=== PATIENT | female | born 1940 | race Hispanic/Latino ===

== ENCOUNTER 2016-12-03 10:22 | Outpatient (CLI) | payer MEDICARE, BC ==
--- NOTE | 2016-12-03 14:24 | CT ---
CT ABDOMEN WITH IV CONTRAST CT PELVIS WITH IV CONTRAST: Date: 12-03-16 History: Right lower quadrant abdominal pain for a few months. Nausea. History of cholecystectomy an d appendectomy. Comparison: None. FINDINGS: There is mild dependent bibasilar atelectasis. Prominent degenerative changes are seen within the lumbar spine. Vascular calcifications are seen in the abdominal aorta and iliac arteries. Liver demonstrates mild diminished attenuation which may be related to mild fatty infiltration. Live r is otherwise normal in appearance. There is evidence of prior cholecystectomy. There is a subcentimeter too small to characterize hypodense lesion in the midportion left kidney. The spleen, pancreas, bilateral adrenal glands, right kidney, partially distended urinary bladder, u terus and opacified bowel demonstrate a normal CT appearance. There is colonic diverticulosis with multiple diverticula seen involving the sigmoid colon. There ar e no CT findings to suggest diverticulitis. There is no free fluid, fluid collection, or lymphadenopathy seen in the abdomen or pelvis. IMPRESSION: 1. No acute findings in the abdomen or pelvis. 2. Colonic diverticulosis. 3. Post cholecystectomy. 4. Mild fatty infiltration of the liver. POS: [facility]
[2016-12-03] MEDS ORDERED: Iopamidol 370 76% 100 ML VIAL ONE (16:08)
== END 2016-12-03 10:23 | disposition home or self-care (01) ==
LOC: CT 10:22
PROVIDERS: ATTEND Internal Medicine Geriatric Medicine
DX: R10.31 Right lower quadrant pain (principal); E11.9 Type 2 diabetes mellitus without complications; K57.30 Diverticulosis of large intestine without perforation or abscess without bleeding; K76.0 Fatty (change of) liver, not elsewhere classified; Z90.49 Acquired absence of other specified parts of digestive tract
CPT/HCPCS: 36415; 74177; 80053; 80061; 83036; 85025

== ENCOUNTER 2017-07-31 14:47 | Emergency (ER) | payer MEDICARE, BC ==
[2017-07-31] MEDS ORDERED: HYDROcodone/Acetaminophen 5/325 mg Tablet ONE (15:48)
--- NOTE | 2017-07-31 15:54 | RAD ---
AP PELVIS: Date: 07/31/17 HISTORY: Fall, left hip pain. FINDINGS/IMPRESSION: There are degenerative changes in the hip joints and the lower lumbar spine. There is suggestion of a fracture involving the inferior left pubic ramus. POS: [facility]
--- NOTE | 2017-07-31 15:56 | RAD ---
LEFT HIP 2 VIEWS: Date: 07/31/17 HISTORY: 77-year-old female with history of left hip pain after a fall. FINDINGS: There is a linear area of slight sclerosis and slight adjacent lucency in the left inferior ischiopub ic ramus. This is at the location of the physis and is conceivable that could be what this is. I moira ot exclude, however, the possibility of a nondisplaced fracture. The left hip itself shows some degen erative enthesophytic changes, but no acute hip fracture. IMPRESSION: No acute hip fracture. Area of linear lucency and sclerosis involving the left inferior ischiopubic r amus, nondisplaced fracture versus residual physis. POS: [facility]
--- NOTE | 2017-07-31 16:22 | CT ---
CT PELVIS NONCONTRAST: Date: 07/31/17 HISTORY: Fall. Pelvic injury. Abnormal radiograph. FINDINGS: A comminuted, minimally displaced fracture involves the left inferior pubic ramus in region of abnorm ality on pelvic radiograph. Other pubic rami and the sacrum are intact. Prominent degenerative change s of the sacroiliac joints. Moderate degenerative changes of the hips. Calcification throughout the a rterial structures. Diverticular arise from the partially visualized colon. IMPRESSION: 1. Mildly displaced left inferior pubic ramus fracture. 2. Osteoarthritis. 3. Atherosclerosis. POS: [facility]
== END 2017-07-31 17:30 | disposition home or self-care (01) ==
LOC: ERS 14:47
DX: S32.592A Other specified fracture of left pubis, initial encounter for closed fracture (principal); E11.9 Type 2 diabetes mellitus without complications; I10 Essential (primary) hypertension; W18.30XA Fall on same level, unspecified, initial encounter
CPT/HCPCS: 72170; 72192

== ENCOUNTER 2018-01-25 14:28 | Observation (INO) | payer MEDICARE, BC ==
--- NOTE | 2018-01-25 15:53 | RAD ---
TWO VIEWS CHEST: DATE: 01/25/2018. PROVIDED CLINICAL HISTORY: Back pain status post fall. FINDINGS: Cardiac and mediastinal silhouette is within normal limits. Vascular calcification involves the aort ic arch. No focal consolidation, pleural fluid, or pneumothorax apparent. The bony thorax appears g rossly intact. IMPRESSION: No evidence for an acute cardiopulmonary process. POS: [facility]
--- NOTE | 2018-01-25 16:07 | CT ---
CT BRAIN: 01/25/2018 PROVIDED CLINICAL HISTORY: Trauma. Fall. Facial injury. FINDINGS: There is no evidence for intracranial hemorrhage or mass effect. The ventricular system appears norm al in size and morphology. Encephalomalacia involving a portion of the left frontal lobe, compatible with changes of remote ischemia. The extracranial soft tissues and osseous structures demonstrate a n unremarkable CT appearance. IMPRESSION: No evidence for intracranial hemorrhage or mass effect. POS: [facility]
--- NOTE | 2018-01-25 16:09 | CT ---
CT CERVICAL SPINE: 01/25/2018 PROVIDED CLINICAL HISTORY: Fall. FINDINGS: There is no evidence for fracture or traumatic subluxation. No prevertebral soft tissue swelling krzysztof arent. The visualized lung apices appear clear. Conspicuous vascular calcification involving the ri ght distal common/proximal internal carotid artery. IMPRESSION: 1. No evidence for fracture or traumatic subluxation. 2. Possible high-grade right internal carotid artery stenosis. Non-emergent carotid ultrasound analy mmended. CODE T POS: [facility]
--- NOTE | 2018-01-25 16:10 | CT ---
CT FACIAL BONES: 01/25/2018 PROVIDED CLINICAL HISTORY: Facial pain, status post injury. FINDINGS: There is no evidence for fracture. The globes and orbital contents appear normal. The paranasal sin uses appear clear. IMPRESSION: No evidence for fracture. POS: [facility]
[2018-01-25 17:14] LABS: #Basophils 0.1 thou/uL (0.0-0.2); #Eosinphils 0.2 thou/uL (0.0-0.7); #Lymphocytes 2.4 thou/uL (1.20-3.40); #Monocytes 0.8 thou/uL (0.11-0.59); #Neutrophils 12.1 thou/uL (1.40-6.50); %Basophils 0.6 % (0.0-1.0); %Eosinophils 1.3 % (0.0-10.0); %Lymphocytes 15.4 % (21.0-51.0); %Monocytes 5.4 % (0.0-10.0); %Neutrophils 77.3 % (42.0-75.0); Mean Corpuscular HGB CONC 32.6 g/dL (32.0-36.0); Mean Corpuscular Hemoglobin 28.1 pg (27.0-31.0); Mean Platelet Volume 9.8 fL (7.4-10.4); Platelet Count 283 thou/uL (130-400); RBC Distribution Width 12.3 % (11.5-14.5); Red Blood Cell (RBC) Count 5.33 mill/uL (4.20-5.40); White Blood Cell (WBC) Count 15.6 thou/uL (4.8-10.8)
[2018-01-25 17:17] LABS: Bilirubin Negative (Negative); Blood, Urine Negative (Negative); Clarity CLEAR (Clear); Glucose, Urine (Dipstick) Negative (Negative); Leukocyte Negative (Negative); Nitrite Negative (Negative); Protein, Urine (Dipstick) Negative (Neg-Trace); Specific Gravity, Urine 1.007 (1.002-1.036); Urobilinogen 0.2 mg/dL (0.2-1.0)
[2018-01-25 17:38] LABS: ALT (SGPT) 37 U/L (8-55); AST (SGOT) 36 U/L (5-34); Albumin 4.7 g/dL (3.4-4.8); Alkaline Phosphatase 104 U/L (40-150); Anion Gap 20 mmol/L (10-20); BUN (Urea Nitrogen) 12 mg/dL (9.8-20.1); Bilirubin, Total 0.7 mg/dL (0.2-1.2); Calc. Creatinine Clearance 0 mL/min (70-130); Calcium 10.6 mg/dL (7.8-10.44); Carbon Dioxide 19 mmol/L (23-31); Chloride 100 mmol/L (98-107); Estimated GFR-MDRD 83; Globulin 3.5 g/dL (2.4-3.5); Glucose 152 mg/dL (83-110); Potassium 4.3 mmol/L (3.5-5.1); Protein, Total 8.2 g/dL (6.0-8.3); Sodium 135 mmol/L (136-145)
[2018-01-25 18:00] LABS: CKMB 1.9 ng/mL (0-6.6)
[2018-01-25] MEDS ORDERED: Ondansetron PF 4 MG/2 ML Vial IVP PRN (19:55)
[2018-01-25] MEDS ORDERED: HYDROcodone/Acetaminophen 5/325 mg Tablet PO PRN ×2 (19:55)
[2018-01-25] MEDS ORDERED: Acetaminophen 325 MG TAB PO PRN (19:55)
[2018-01-25] MEDS ORDERED: Ondansetron ODT 4 MG TAB SL PRN (19:55)
[2018-01-25 20:38] VITALS: BMI 29.0
[2018-01-25 20:49] LABS: Troponin I 0.128 ng/mL (< 0.028)
[2018-01-25] MEDS ORDERED: Prevnar 13-Val Conj/PF 0.5 ML SYRINGE IM ONE (22:15)
--- NOTE | 2018-01-25 23:07 | ULT ---
BILATERAL CAROTID DUPLEX ULTRASOUND WITH SPECTRAL ANALYSIS AND COLORFLOW EVALUATION: 01/25/2018 HISTORY: Dizziness and falls. TECHNIQUE: Gutierrez-scale, color-flow, Doppler evaluation, and spectral analysis of the bilateral carotid arteries i s performed with 2D imaging. FINDINGS: There is atherosclerotic plaque seen within the internal carotid arteries bilaterally, greater on the right. There is less than 50% maximal stenosis in the bilateral internal carotid arteries according to the p eak systolic velocities and the ICA/CCA ratios. The peak systolic velocity in the right ICA is 77.8 cm per second, with an ICA/CCA ratio of 0.84. The peak systolic velocity in the left ICA is 112.5 cm per second, with an ICA/CCA ratio of 0.89. There is mildly elevated peak systolic velocity in the left external carotid artery, suggesting signi ficant stenosis. Antegrade flow is demonstrated in the vertebral arteries bilaterally. IMPRESSION: No hemodynamically significant stenosis in the bilateral internal carotid arteries. There is shadowi ng atherosclerotic plaque in the region of the proximal right internal carotid artery, which limits e valuation of the lumen. More significant stenosis in this region cannot be entirely excluded. POS: [facility]
[2018-01-25] MEDS ORDERED: hydrALAZINE 20 MG/ML VIAL SLOW IVP PRN (23:44)
[2018-01-26] MEDS ORDERED: Sodium Chloride 0.65% Nasal 44 ML BOT EA NARE PRN (03:36)
[2018-01-26] MEDS ORDERED: Ondansetron ODT 4 MG TAB PO PRN (03:39)
[2018-01-26] MEDS ORDERED: Ondansetron PF 4 MG/2 ML Vial IVP PRN (03:39)
[2018-01-26] MEDS ORDERED: Nitroglycerin 0.4 MG TAB (25 Tab Bottle) PO PRN (03:39)
[2018-01-26] MEDS ORDERED: Acetaminophen 325 MG TAB PO PRN (03:39)
--- NOTE | 2018-01-26 04:29 | HP ---
The patient was seen and examined on 01/25/2018. PRIMARY CARE PHYSICIAN: Do Gould MD CHIEF COMPLAINT: Fall. HISTORY OF PRESENT ILLNESS: The patient is a 78-year-old female with congestive heart failure, hypertension, diabetes mellitus type 2 and hyperlipidemia, who presented to the hospital after a fall. The fall happened in a parking lot outside a restaurant. The patient stated that she tripped on the concrete, which caused her to fall. She denies any loss of consciousness. She hit on the floor facing her face. She had some bleeding through her nose that has resolved. She denies any seizure-like activity, incontinence or tongue biting. No chest pain, shortness of breath or palpitations reported. In the emergency room, her initial vital signs show a temperature 98.6, respirations 20, pulse rate of 95 with a blood pressure 195/72 with O2 saturation 99% on room air. A CT scan of the brain was negative for acute findings. CT neck showed questionable high-grade right-sided internal carotid artery stenosis. EKG showed sinus rhythm with left ventricular hypertrophy and left axis deviation. There were some nonspecific ST-T wave changes as well. Her troponins were in the indeterminate range at 0.128. PAST MEDICAL HISTORY: 1. History of congestive heart failure in 2013. She was discharged home with a LifeVest. Echocardiogram at that time showed 20% to 25%. Cardiac catheterization was negative. This was attributed to Takotsubo cardiomyopathy. She stated that she saw Dr. Aranda and her ejection fraction had improved. 2. Diabetes mellitus type 2. 3. Hypertension. 4. Hyperlipidemia. 5. Anxiety disorder. PAST SURGICAL HISTORY: 1. Left carotid endarterectomy. 2. Appendectomy. 3. Cholecystectomy. ALLERGIES: THE PATIENT IS ALLERGIC TO SULFA. CURRENT HOME MEDICATIONS: 1. Tylenol as needed. 2. Amlodipine 5 mg daily. 3. Aspirin 81 mg daily. 4. Lipitor 20 mg daily. 5. Vitamin D 1000 units daily. 6. Vitamin B12 1000 mcg every month. 7. Glipizide extended release 2.5 mg daily. 8. Lisinopril 5 mg daily. 9. Metformin 850 mg twice a day. SOCIAL HISTORY: The patient currently lives at home with her family. Denies any history of smoking, alcohol or drug use. She currently makes her own decision with the help of her family. She is full code. FAMILY HISTORY: Positive for diabetes mellitus type 2. REVIEW OF SYSTEMS: All other review of systems was reviewed and were found negative. PHYSICAL EXAMINATION: VITAL SIGNS: As discussed above. GENERAL: A 78-year-old female in no apparent distress. HEENT: Head, atraumatic, normocephalic. Sclerae anicteric. Moist mucous membranes. No oral lesion. NECK: Supple. No JVD. No carotid bruit. LUNGS: Clear to auscultation bilaterally. HEART: S1 and S2 present. Regular rate and rhythm. No murmurs, rubs or gallops appreciated. ABDOMEN: Soft, nontender. Bowel sounds present. EXTREMITIES: No edema or calf tenderness. NEUROLOGY: Grossly nonfocal. Moves all four extremities. PSYCHIATRY: Alert, awake, and oriented x3. SKIN: Warm and dry. LYMPH NODES: No palpable lymph nodes in the neck. PERIPHERAL VASCULAR: Radial pulses palpable bilaterally. MUSCULOSKELETAL: No joint swelling or tenderness. LABORATORY DATA: Lab findings as discussed above. WBC 15.6 with 77% neutrophils. Urinalysis was negative. DIAGNOSTIC DATA: Chest x-ray was negative for infiltrate or edema. CT of the facial bones was negative. Cervical spine CT showed possible high-grade right internal carotid artery stenosis. CT scan of the brain was negative. EKG by my review as discussed above. IMPRESSION: 1. Mechanical fall. 2. Elevated troponins probably secondary to demand ischemia from high blood pressure. 3. Dehydration. 4. Chronic hypercalcemia. 5. Vitamin D deficiency. 6. Diabetes mellitus type 2. 7. Mild hyponatremia. 8. Leukocytosis without any obvious infectious etiology. 9. History of congestive heart failure in the past. 10. Dyslipidemia. 11. Anxiety disorder. PLAN: The patient will be monitored on the telemetry unit overnight. Echocardiogram will be obtained. Carotid Doppler has been ordered and pending at this time due to suspected left ICA stenosis on the cervical spine CT. Fall precautions. Walking program. We will resume selected home medications except for metformin due to contrast exposure. Orthostatic vitals will be done in the morning. The patient denies any loss of consciousness. Plan of care was discussed with the patient in detail. She stated understanding. Job ID: [id number]
[2018-01-26 04:39] LABS: #Basophils 0.1 thou/uL (0.0-0.2); #Eosinphils 0.2 thou/uL (0.0-0.7); #Lymphocytes 2.9 thou/uL (1.20-3.40); #Monocytes 0.8 thou/uL (0.11-0.59); #Neutrophils 6.6 thou/uL (1.40-6.50); %Basophils 0.7 % (0.0-1.0); %Eosinophils 2.2 % (0.0-10.0); %Lymphocytes 26.9 % (21.0-51.0); %Monocytes 7.8 % (0.0-10.0); %Neutrophils 62.4 % (42.0-75.0); Hemoglobin 13.3 g/dL (12.0-16.0); Mean Corpuscular HGB CONC 33.9 g/dL (32.0-36.0); Mean Corpuscular Hemoglobin 28.9 pg (27.0-31.0); Mean Corpuscular Volume 85.3 fL (78.0-98.0); Mean Platelet Volume 9.7 fL (7.4-10.4); Platelet Count 268 thou/uL (130-400); RBC Distribution Width 12.4 % (11.5-14.5); Red Blood Cell (RBC) Count 4.59 mill/uL (4.20-5.40); White Blood Cell (WBC) Count 10.6 thou/uL (4.8-10.8)
[2018-01-26 05:00] LABS: Anion Gap 12 mmol/L (10-20); BUN (Urea Nitrogen) 12 mg/dL (9.8-20.1); Calc. Creatinine Clearance 80 mL/min (70-130); Calcium 10.2 mg/dL (7.8-10.44); Carbon Dioxide 27 mmol/L (23-31); Chloride 103 mmol/L (98-107); Estimated GFR-MDRD 88; Glucose 132 mg/dL (83-110); Magnesium 1.4 mg/dL (1.6-2.6); Sodium 138 mmol/L (136-145)
[2018-01-26 05:04] LABS: Troponin I 0.191 ng/mL (< 0.028)
[2018-01-26] MEDS ORDERED: Magnesium Sulfate 4 GM in Sodium Chloride 0.9% 250 ML 250 ML IVPB SCH (06:30)
[2018-01-26] MEDS ORDERED: Prevnar 13-Val Conj/PF 0.5 ML SYRINGE IM ONE (09:00)
[2018-01-26] MEDS: Amlodipine 5 MG TAB PO SCH (09:29)
[2018-01-26] MEDS: Lisinopril 5 MG TAB PO SCH (09:29)
[2018-01-26] MEDS: Aspirin 81 mg Enteric Coated Tablet PO SCH (09:29)
--- NOTE | 2018-01-26 15:08 | PDOC.PN ---
- Subjective Encounter Start Date: 01/26/18 Encounter Start Time: 15:07 No events over night, no chest pain, shortness of breath. No headache or dizziness. Ortho vitals negative. Carotids show <50% bilateral stenosis - Objective Resuscitation Status - Order Detail: 01/26/18 03:39 Resuscitation Status Routine Resuscitation Status: FULL: Full Resuscitation MAR Reviewed: Yes Vital Signs & Weight: Vital Signs (12 hours) Temp Pulse Resp BP BP BP BP 01/26/18 11:30 97.3 F L 56 L 20 163/68 H 01/26/18 09:29 46 L 01/26/18 07:56 97.4 F L 46 L 16 157/70 H 179/75 H 165/70 H 01/26/18 03:59 98.1 F 55 L 16 143/62 H Pulse Ox 01/26/18 11:30 95 01/26/18 09:29 01/26/18 07:56 94 L 01/26/18 03:59 96 Weight Weight 159 lb 1 oz I&O: 01/25/18 01/26/18 01/27/18 06:59 06:59 06:59 Intake Total 190 Output Total 450 275 Balance -260 -275 Result Diagrams: 01/26/18 04:00 01/26/18 04:00 Additional Labs: Accuchecks 01/26/18 01/25/18 10:14 20:29 POC Glucose 229 H 164 H Radiology Reviewed by me: Yes EKG Reviewed by me: Yes Phys Exam - Physical Examination Constitutional: NAD HEENT: PERRLA, moist MMs, sclera anicteric, oral pharynx no lesions Neck: no nodes, no JVD, supple Respiratory: no wheezing, no rales, no rhonchi, clear to auscultation bilateral Cardiovascular: RRR, no significant murmur, no rub Gastrointestinal: soft, non-tender, no distention, positive bowel sounds Musculoskeletal: no edema, pulses present Neurological: non-focal, normal sensation, moves all 4 limbs Lymphatic: no nodes Psychiatric: normal affect, A&O x 3 Skin: no rash, normal turgor, cap refill <2 seconds Dx/Plan - Plan cont current plan of care * Continue medical management * Await echo * Carotid doppler reviewed and discussed with patient * Trend Troponin, currently asymptomatic * Ortho vitals negative
[2018-01-26] MEDS ORDERED: Atorvastatin Calcium 20 MG TAB PO SCH (21:00)
[2018-01-27 04:51] LABS: Troponin I 0.042 ng/mL (< 0.028)
[2018-01-27 08:06] VITALS: BP 141/64; TEMP 97.9
[2018-01-27] MEDS: Amlodipine 5 MG TAB PO SCH (08:49)
[2018-01-27] MEDS: Aspirin 81 mg Enteric Coated Tablet PO SCH (08:49)
[2018-01-27] MEDS: Lisinopril 5 MG TAB PO SCH (08:49)
[2018-01-27] MEDS ORDERED: Lisinopril 5 MG TAB PO SCH (09:59)
[2018-01-27] MEDS ORDERED: metFORMIN 850 MG TAB PO SCH (11:15)
[2018-01-27] MEDS ORDERED: glipiZIDE 5 MG TAB PO SCH (11:15)
[2018-01-28] MEDS ORDERED: Lisinopril 10 MG TAB PO SCH (09:00)
--- NOTE | 2018-01-29 13:17 | EKG ---
Test Reason : Blood Pressure : / mmHG Vent. Rate : 084 BPM Atrial Rate : 084 BPM P-R Int : 152 ms QRS Dur : 088 ms QT Int : 424 ms P-R-T Axes : 039 -07 095 degrees QTc Int : 501 ms Normal sinus rhythm Left ventricular hypertrophy with repolarization abnormality Nonspecific ST abnormality Prolonged QT Abnormal ECG Confirmed by RAVI BATES DO ([id number]), assignment editor ANTHONY BOURGEOIS ([id number]) on 01/29/2018 1:17:28 PM Referred By: Confirmed By:RAVI BATES DO
== END 2018-01-27 11:33 | disposition home or self-care (01) ==
LOC: ERS 14:28 → T4-B 18:20 → 2SW 22:49
PROVIDERS: ADMIT Internal Medicine; ATTEND Internal Medicine
DX: S00.83XA Contusion of other part of head, initial encounter (principal); I11.0 Hypertensive heart disease with heart failure; I50.9 Heart failure, unspecified; E11.9 Type 2 diabetes mellitus without complications; E78.5 Hyperlipidemia, unspecified; E86.0 Dehydration; E83.52 Hypercalcemia; D72.829 Elevated white blood cell count, unspecified; E87.1 Hypo-osmolality and hyponatremia; F41.9 Anxiety disorder, unspecified; Z90.49 Acquired absence of other specified parts of digestive tract; Z88.2 Allergy status to sulfonamides; Z79.82 Long term (current) use of aspirin; Z79.84 Long term (current) use of oral hypoglycemic drugs; Z98.890 Other specified postprocedural states; W19.XXXA Unspecified fall, initial encounter
CPT/HCPCS: 70450; 70486; 71046; 72125; 80048; 80053; 81003; 82553; 82962 ×3; 83735; 84484 ×4; 85025 ×2; 93005; 93306; 93880; 96365; 96366; 97139 ×2; 99285; G0378 ×2; 36415; 36416; J3475; J7050

== ENCOUNTER 2018-02-26 13:00 | Observation (INO) | payer MEDICARE, BC ==
--- NOTE | 2018-02-26 13:50 | RAD ---
PORTABLE CHEST: History: Chest pain. Comparison: 05-10-14 FINDINGS: Lung partida appear clear. No infiltrate or vascular congestion. Heart size within normal range. Mild aortic calcification. IMPRESSION: No acute process. POS: [facility]
[2018-02-26 13:59] LABS: #Basophils 0.1 thou/uL (0.0-0.2); #Eosinphils 0.2 thou/uL (0.0-0.7); #Lymphocytes 2.6 thou/uL (1.20-3.40); #Monocytes 0.7 thou/uL (0.11-0.59); #Neutrophils 8.9 thou/uL (1.40-6.50); %Basophils 0.9 % (0.0-1.0); %Eosinophils 1.9 % (0.0-10.0); %Lymphocytes 20.8 % (21.0-51.0); %Monocytes 5.5 % (0.0-10.0); Hemoglobin 13.8 g/dL (12.0-16.0); Mean Corpuscular HGB CONC 33.7 g/dL (32.0-36.0); Mean Corpuscular Hemoglobin 28.7 pg (27.0-31.0); Mean Corpuscular Volume 85.3 fL (78.0-98.0); Mean Platelet Volume 9.8 fL (7.4-10.4); Platelet Count 285 thou/uL (130-400); RBC Distribution Width 12.3 % (11.5-14.5); White Blood Cell (WBC) Count 12.5 thou/uL (4.8-10.8)
[2018-02-26 14:31] LABS: ALT (SGPT) 28 U/L (8-55); AST (SGOT) 23 U/L (5-34); Albumin 4.4 g/dL (3.4-4.8); Alkaline Phosphatase 102 U/L (40-150); Anion Gap 17 mmol/L (10-20); BUN (Urea Nitrogen) 11 mg/dL (9.8-20.1); Bilirubin, Total 0.6 mg/dL (0.2-1.2); CK (CPK) 30 U/L (29-168); Calc. Creatinine Clearance 0 mL/min (70-130); Calcium 10.4 mg/dL (7.8-10.44); Carbon Dioxide 20 mmol/L (23-31); Chloride 99 mmol/L (98-107); Estimated GFR-MDRD 83; Glucose 161 mg/dL (83-110); Potassium 3.8 mmol/L (3.5-5.1); Protein, Total 7.4 g/dL (6.0-8.3); Sodium 132 mmol/L (136-145)
[2018-02-26] MEDS ORDERED: Nitroglycerin 2% Ointment 1 INCH/1 GM Packet ONE (14:57)
[2018-02-26 15:00] LABS: Bilirubin Negative (Negative); Blood, Urine Negative (Negative); Clarity CLEAR (Clear); Glucose, Urine (Dipstick) Negative (Negative); Leukocyte Small (Negative); Nitrite Negative (Negative); Protein, Urine (Dipstick) Negative (Neg-Trace); Specific Gravity, Urine 1.004 (1.002-1.036); Urobilinogen 0.2 mg/dL (0.2-1.0); pH, Urine 5.5 (5.0-9.0)
[2018-02-26 15:03] LABS: Bacteria/HPF None Seen HPF (None Seen); Hyaline Casts/LPF 0-3 HYALINE CAST LPF (0-3 Hyaline); RBC/HPF 0-3 HPF (0-3); Squamous Epithelial 0-3 HPF (0-3)
[2018-02-26] MEDS ORDERED: HYDROcodone/Acetaminophen 5/325 mg Tablet PO PRN (16:08)
[2018-02-26] MEDS ORDERED: Acetaminophen 325 MG TAB PO PRN (16:08)
[2018-02-26] MEDS ORDERED: Nitroglycerin 0.4 MG TAB (25 Tab Bottle) SL PRN (16:18)
[2018-02-26] MEDS ORDERED: hydrALAZINE 20 MG/ML VIAL SLOW IVP PRN (16:18)
[2018-02-26] MEDS ORDERED: HumaLOG 300 UNITS/3 ML VIAL SC PRN (16:19)
[2018-02-26] MEDS ORDERED: Dextrose 50% Abboject 50 ML SYRINGE SLOW IVP PRN (16:19)
[2018-02-26] MEDS ORDERED: Dextrose 5% in Water 1,000 ML IV PRN (16:19)
[2018-02-26 18:36] LABS: Troponin I Less than 0.010 ng/mL (< 0.028)
[2018-02-26 19:21] VITALS: BMI 29.4
[2018-02-26] MEDS ORDERED: Acetaminophen 500 MG TAB PO PRN (19:39)
[2018-02-26 20:45] LABS: Troponin I Less than 0.010 ng/mL (< 0.028)
[2018-02-26] MEDS: Famotidine 20 MG TAB PO SCH (21:02)
--- NOTE | 2018-02-26 23:11 | HP ---
PRIMARY CARE PHYSICIAN: Do Gould MD CHIEF COMPLAINT: Chest pain. HISTORY OF PRESENT ILLNESS: This is a very pleasant 78-year-old female, who presented to the emergency room for chest pain after she was doing some light cycling for exercise. When she noted that she has had some mild substernal chest pain type tightness in her chest, she stopped. They were able to take her blood pressure while she was there. It was elevated. Dr. Gould's office referred her to the emergency room for further management. The patient denied any nausea, shortness of breath, or diaphoresis with chest pain. Does have a history of hypertension, diabetes, some coronary artery disease in the past. Daughter reports the patient was diagnosed with broken heart syndrome back in 2013. At that time, Dr. Aranda did a cardiac cath in December of 2013 for cardiomyopathy of unknown origin. Postprocedure diagnosis significant coronary artery disease. She did at that point have an EF of 20% to 25%. She was discharged at that point with LifeVest, which she reports that she stopped wearing sometime later within the next year or so. She was admitted in January 2018 for a fall, had an echocardiogram done, which showed an EF of 55% to 60%, mild concentric left ventricular hypertrophy, the left atrium is moderately dilated, [id number] mitral regurgitation, mildly thickened trileaflet aortic valve with normal excursion, [id number]-af-[id number] aortic stenosis, moderate aortic regurgitation, mild tricuspid regurgitation, and E/A flow reversal noted suggestive of diastolic dysfunction. The patient was discharged to follow up with primary care. Initial troponin in the emergency room was undetectable with a BNP of 78%. Based on history and presentation, the patient was admitted to the observation unit for further management. PAST MEDICAL HISTORY: 1. History of congestive heart failure in 2013 attributed to takotsubo cardiomyopathy, improvement of the EF last month 55% to 60%. 2. Diabetes mellitus type 2. 3. Hypertension. 4. Hyperlipidemia. 5. Anxiety disorder. PAST SURGICAL HISTORY: Left carotid endarterectomy, appendectomy, and cholecystectomy. ALLERGIES: THE PATIENT IS ALLERGIC TO SULFA. CURRENT HOME MEDICATIONS: 1. Tylenol as needed. 2. Amlodipine 5 mg daily. 3. Aspirin 81 mg daily. 4. Lipitor 20 mg daily. 5. Vitamin D 1000 units daily. 6. Vitamin B12 of 1000 mcg every month. 7. Glipizide extended release 2.5 mg daily. 8. Lisinopril 5 mg daily. 9. Metformin 850 mg twice a day. SOCIAL HISTORY: The patient currently lives at home with her family. Denies any smoking history. Denies any alcohol or drug use. She is full code. FAMILY HISTORY: Positive for diabetes type 2. REVIEW OF SYSTEMS: All other systems reviewed and negative unless found in the HPI. PHYSICAL EXAMINATION: VITAL SIGNS: Blood pressure 153/58, pulse is 49, respirations 14. Pain is zero. Pulse ox is 97% on room air. CONSTITUTION: The patient is in no distress. The patient appears pain free. She is alert and oriented to person, place, and time. HEENT: Head is atraumatic and normocephalic. Eyes; eyelids are normal to inspection. Pupils are equally round and reactive to light. Extraocular muscles are intact. ENT; mouth exam is normal. Mucous membranes are moist. NECK: Normal range of motion. Trachea is midline. RESPIRATORY/CHEST: Breath sounds are clear. No findings of any respiratory distress. CARDIOVASCULAR: Heart rate is bradycardic. Heart sounds with systolic murmur present, grade 3/6, regular rhythm. ABDOMEN: Nontender. Bowel sounds are heard. BACK: Normal inspection. Normal range of motion. EXTREMITIES: Upper extremities, normal inspection, normal range of motion. Sensation intact. Radial pulses are equal bilaterally. Lower extremity, normal inspection, normal range of motion. Motor strength is normal. Sensation intact. Pedal pulses are equal bilaterally. NEUROLOGIC: The patient is oriented to person, place, and time. No focal motor or sensory deficits are noted. SKIN: Warm, dry, normal in color. DIAGNOSTIC DATA: EKG shows sinus bradycardia, beats per minute 54. No ectopics. ST segments are normal. T-waves are normal. LABORATORY DATA: Pertinent labs: Sodium 132, potassium is 3.8, chloride is 99, carbon dioxide is 20, gap is 17, BUN is 11, creatinine is 0.68, GFR is 83, glucose 161, calcium 10.4. Liver enzymes are unremarkable. First troponin is undetectable. BNP is 78. White blood cell count is 12.5, hemoglobin 13.8, hematocrit 41.0, and platelet count is 285. Urine is negative other than small amount of leukocyte esterase and 4-6 white blood cell count. Culture has been ordered. ASSESSMENT AND PLAN: 1. Chest pain. We will order serial troponins and ask Cardiology to consult. 2. Bradycardia. The patient is not on any beta blockers. We will continue to trend. 3. Diabetes mellitus. We will continue home medications. We will order sliding scale as needed. We will check blood sugars before meals and at bedtime. 4. Hyperlipidemia. We will continue home medications. 5. Deep venous thrombosis and gastrointestinal prophylaxis will be ordered. 6. Clinical course will be dependent on clinical findings. Job ID: [id number]
[2018-02-27 05:11] LABS: #Basophils 0.1 thou/uL (0.0-0.2); #Eosinphils 0.2 thou/uL (0.0-0.7); #Lymphocytes 2.8 thou/uL (1.20-3.40); #Monocytes 0.6 thou/uL (0.11-0.59); #Neutrophils 4.9 thou/uL (1.40-6.50); %Basophils 0.9 % (0.0-1.0); %Eosinophils 2.8 % (0.0-10.0); %Lymphocytes 32.2 % (21.0-51.0); %Neutrophils 57.1 % (42.0-75.0); Hemoglobin 12.9 g/dL (12.0-16.0); Mean Corpuscular HGB CONC 33.5 g/dL (32.0-36.0); Mean Corpuscular Hemoglobin 28.5 pg (27.0-31.0); Mean Corpuscular Volume 84.9 fL (78.0-98.0); Mean Platelet Volume 9.3 fL (7.4-10.4); Platelet Count 241 thou/uL (130-400); RBC Distribution Width 12.4 % (11.5-14.5); Red Blood Cell (RBC) Count 4.52 mill/uL (4.20-5.40); White Blood Cell (WBC) Count 8.6 thou/uL (4.8-10.8)
[2018-02-27 05:40] LABS: ALT (SGPT) 27 U/L (8-55); AST (SGOT) 23 U/L (5-34); Alkaline Phosphatase 86 U/L (40-150); Anion Gap 16 mmol/L (10-20); BUN (Urea Nitrogen) 12 mg/dL (9.8-20.1); Bilirubin, Total 0.7 mg/dL (0.2-1.2); Calc. Creatinine Clearance 80 mL/min (70-130); Carbon Dioxide 24 mmol/L (23-31); Chloride 103 mmol/L (98-107); Estimated GFR-MDRD 86; Globulin 2.6 g/dL (2.4-3.5); Glucose 140 mg/dL (83-110); Potassium 3.9 mmol/L (3.5-5.1); Protein, Total 6.6 g/dL (6.0-8.3); Sodium 139 mmol/L (136-145)
[2018-02-27] MEDS: Amlodipine 5 MG TAB PO SCH (08:56)
[2018-02-27] MEDS: Atorvastatin Calcium 20 MG TAB PO SCH (08:56)
[2018-02-27] MEDS: Aspirin 81 mg Enteric Coated Tablet PO SCH (08:56)
[2018-02-27] MEDS: Famotidine 20 MG TAB PO SCH ×2 (08:56→20:46)
[2018-02-27] MEDS: Enoxaparin Sodium 40 MG/0.4 ML SYRINGE SC SCH (08:57)
[2018-02-27] MEDS: Lisinopril 5 MG TAB PO SCH (08:57)
--- NOTE | 2018-02-27 14:01 | CON ---
DATE OF CONSULTATION: REASON FOR CONSULTATION: Chest pain. HISTORY OF PRESENT ILLNESS: Ms. Anguiano is a very pleasant 78-year-old woman, who was seen and evaluated in the past. She underwent coronary angiography in 2016, was found to have mild coronary artery disease with a lesion present to the right coronary artery estimated at 20%. She underwent a noninvasive stress study last year via cardiac , which was negative for ischemia with a normal LVEF. She re-presented with chest pain. The pain has been intermittent. She states it does not last for more than 1 minute. It has occurred at rest. Her symptoms appears vague. No other ameliorating or exacerbating symptoms present. Her EKG did not show significant EKG changes. Her troponin has been negative. PAST MEDICAL HISTORY: Previous cardiomyopathy, now normal LVEF; diabetes; hypertension; and hyperlipidemia. MEDICATIONS: 1. Lipitor. 2. Vitamin D. 3. Vitamin B12. 4. Amlodipine. 5. Tylenol. 6. Metformin. 7. Lisinopril. PHYSICAL EXAMINATION: GENERAL: Patient is a pleasant, who is in no acute distress. The patient appears their stated age. VITAL SIGNS: Blood pressure 135/79, pulse 50, temperature 98.4. NEUROLOGIC: The patient is alert and oriented x3 with no focal neurologic deficits. HEENT: Sclerae without icterus. Mouth has moist mucous membranes with normal pallor. NECK: No JVD. Carotid upstroke brisk. No bruits bilaterally. LUNGS: Clear to auscultation with unlabored respirations. BACK: No scoliosis or kyphosis. CARDIAC: Regular rate and rhythm with normal S1 and S2. No S3 or S4 noted. No significant rubs, murmurs, thrills, or gallops noted throughout the precordium. PMI is not displaced. There is no parasternal heave. ABDOMEN: Soft, nontender, nondistended. No peritoneal signs present. No hepatosplenomegaly. No abnormal striae. EXTREMITIES: 2+ femoral and 2+ dorsalis pedis pulses. No cyanosis, clubbing, or edema. SKIN: No gross abnormalities. LABORATORY DATA: Pertinent labs, as above. IMPRESSION: 1. Atypical chest pain. 2. Mild coronary artery disease. RECOMMENDATIONS: Ms. Anguiano' troponin and EKG are not probably suggestive of angina. She had an angio 2 years ago with no significant coronary artery disease. She also had a normal stress study. We would recommend echo Doppler to assess LV function. She has no previous history of aortic stenosis. If her LVEF is normal, from my standpoint discharged home with close outpatient followup. Job ID: [id number]
--- NOTE | 2018-02-27 16:45 | PDOC.PN ---
- Subjective Encounter Start Date: 02/27/18 Encounter Start Time: 16:29 Patient sitting up in chair, currently improved today. No chest pain or shortness of breath. Family member at bedside. All questions answered. - Objective Resuscitation Status - Order Detail: 02/26/18 16:08 Resuscitation Status Routine Co-Sign Provider: Resuscitation Status: FULL: Full Resuscitation Discussed with: Patient Additional comments: Daughter, Iwona, is the surrogate decision maker MAR Reviewed: Yes Vital Signs & Weight: Vital Signs (12 hours) Temp Pulse Resp BP BP BP BP 02/27/18 15:38 97.9 F 46 L 16 150/64 H 02/27/18 12:00 98.4 F 50 L 18 135/79 02/27/18 08:57 42 L 02/27/18 08:56 42 L 02/27/18 08:15 97.9 F 42 L 18 129/61 136/61 131/62 Pulse Ox 02/27/18 15:38 97 02/27/18 12:00 94 L 02/27/18 08:57 02/27/18 08:56 02/27/18 08:15 95 Weight Weight 160 lb 12.8 oz I&O: 02/26/18 02/27/18 02/28/18 06:59 06:59 06:59 Intake Total 500 Output Total 1000 Balance -500 Result Diagrams: 02/27/18 04:58 02/27/18 04:58 Additional Labs: Accuchecks 02/27/18 02/26/18 10:26 20:39 POC Glucose 140 H 147 H Phys Exam - Physical Examination Constitutional: NAD HEENT: PERRLA, moist MMs, oral pharynx no lesions Neck: no nodes, no JVD, supple Respiratory: no wheezing, no rales, no rhonchi, clear to auscultation bilateral Cardiovascular: RRR, no rub 2/6 systolic murmur Gastrointestinal: soft, non-tender, no distention, positive bowel sounds Musculoskeletal: no edema, pulses present Neurological: non-focal, normal sensation, moves all 4 limbs Lymphatic: no nodes Psychiatric: normal affect, A&O x 3 Skin: no rash, normal turgor, cap refill <2 seconds Dx/Plan (1) Chest pain Code(s): R07.9 - CHEST PAIN, UNSPECIFIED Status: Acute (2) Diabetes mellitus Code(s): E11.9 - TYPE 2 DIABETES MELLITUS WITHOUT COMPLICATIONS Status: Acute (3) Hypertension Code(s): I10 - ESSENTIAL (PRIMARY) HYPERTENSION Status: Acute (4) Takotsubo cardiomyopathy Code(s): I51.81 - TAKOTSUBO SYNDROME Status: Acute - Plan cont current plan of care, plan discussed w/ family, DVT proph w/lovenox * Discussed case with cardiology, await echo, if stable patient stable for discharge * Continue on home medications * Monitor vitals and labs * Likely discharged if echo stable
[2018-02-28 05:09] LABS: #Basophils 0.1 thou/uL (0.0-0.2); #Eosinphils 0.4 thou/uL (0.0-0.7); #Lymphocytes 2.9 thou/uL (1.20-3.40); #Monocytes 0.6 thou/uL (0.11-0.59); #Neutrophils 4.3 thou/uL (1.40-6.50); %Eosinophils 4.5 % (0.0-10.0); %Lymphocytes 34.5 % (21.0-51.0); %Monocytes 7.8 % (0.0-10.0); %Neutrophils 52.2 % (42.0-75.0); Hemoglobin 12.2 g/dL (12.0-16.0); Mean Corpuscular HGB CONC 33.8 g/dL (32.0-36.0); Mean Corpuscular Hemoglobin 28.5 pg (27.0-31.0); Mean Corpuscular Volume 84.5 fL (78.0-98.0); Mean Platelet Volume 9.6 fL (7.4-10.4); Platelet Count 233 thou/uL (130-400); RBC Distribution Width 12.2 % (11.5-14.5); Red Blood Cell (RBC) Count 4.27 mill/uL (4.20-5.40); White Blood Cell (WBC) Count 8.3 thou/uL (4.8-10.8)
[2018-02-28 05:34] LABS: ALT (SGPT) 27 U/L (8-55); AST (SGOT) 16 U/L (5-34); Albumin 3.6 g/dL (3.4-4.8); Alkaline Phosphatase 80 U/L (40-150); Anion Gap 13 mmol/L (10-20); BUN (Urea Nitrogen) 16 mg/dL (9.8-20.1); Bilirubin, Total 0.8 mg/dL (0.2-1.2); Calc. Creatinine Clearance 81 mL/min (70-130); Calcium 9.6 mg/dL (7.8-10.44); Carbon Dioxide 24 mmol/L (23-31); Chloride 105 mmol/L (98-107); Estimated GFR-MDRD 90; Globulin 2.4 g/dL (2.4-3.5); Glucose 140 mg/dL (83-110); Potassium 3.9 mmol/L (3.5-5.1); Sodium 138 mmol/L (136-145)
[2018-02-28] MEDS: Famotidine 20 MG TAB PO SCH (09:07)
[2018-02-28] MEDS: Atorvastatin Calcium 20 MG TAB PO SCH (09:07)
[2018-02-28] MEDS: Amlodipine 5 MG TAB PO SCH (09:07)
[2018-02-28] MEDS: Enoxaparin Sodium 40 MG/0.4 ML SYRINGE SC SCH (09:07)
[2018-02-28] MEDS: Lisinopril 5 MG TAB PO SCH (09:08)
[2018-02-28] MEDS: Aspirin 81 mg Enteric Coated Tablet PO SCH (09:09)
[2018-02-28 12:23] VITALS: BP 135/63; TEMP 98.1
[2018-03-01] MEDS ORDERED: metFORMIN XR 500 MG TAB PO SCH (08:00)
== END 2018-02-28 13:59 | disposition home or self-care (01) ==
LOC: ERS 13:00 → ERHOLD 15:05 → 2SW 16:43
PROVIDERS: ADMIT Internal Medicine; ATTEND Internal Medicine
DX: R07.89 Other chest pain (principal); E11.9 Type 2 diabetes mellitus without complications; I25.10 Atherosclerotic heart disease of native coronary artery without angina pectoris; E78.5 Hyperlipidemia, unspecified; F41.9 Anxiety disorder, unspecified; I51.81 Takotsubo syndrome; I10 Essential (primary) hypertension; Z79.82 Long term (current) use of aspirin; Z79.84 Long term (current) use of oral hypoglycemic drugs; Z79.899 Other long term (current) drug therapy; Z88.2 Allergy status to sulfonamides
CPT/HCPCS: 71045; 80053 ×2; 82550; 82962 ×3; 83880; 84484 ×2; 85025 ×2; 87086; 93005; 93306; 96372 ×2; 97139 ×2; 99285; G0378 ×2; 36415; 36416; 81003; 81015; 84443; J1650

== ENCOUNTER 2018-08-10 16:08 | Emergency (ER) | payer MEDICARE, BC ==
[2018-08-10 16:46] LABS: #Basophils 0.1 thou/uL (0.0-0.2); #Eosinphils 0.3 thou/uL (0.0-0.7); #Lymphocytes 2.1 thou/uL (1.20-3.40); #Monocytes 0.7 thou/uL (0.11-0.59); #Neutrophils 7.3 thou/uL (1.40-6.50); %Basophils 0.8 % (0.0-1.0); %Eosinophils 2.8 % (0.0-10.0); %Lymphocytes 19.7 % (21.0-51.0); %Monocytes 6.5 % (0.0-10.0); %Neutrophils 70.2 % (42.0-75.0); Hemoglobin 12.9 g/dL (12.0-16.0); Mean Corpuscular HGB CONC 33.2 g/dL (32.0-36.0); Mean Corpuscular Hemoglobin 26.8 pg (27.0-31.0); Mean Corpuscular Volume 80.8 fL (78.0-98.0); Mean Platelet Volume 10.4 fL (7.4-10.4); Platelet Count 279 thou/uL (130-400); Red Blood Cell (RBC) Count 4.81 mill/uL (4.20-5.40); White Blood Cell (WBC) Count 10.5 thou/uL (4.8-10.8)
[2018-08-10 17:07] LABS: ALT (SGPT) 12 U/L (8-55); AST (SGOT) 12 U/L (5-34); Alkaline Phosphatase 111 U/L (40-150); Anion Gap 17 mmol/L (10-20); BUN (Urea Nitrogen) 19 mg/dL (9.8-20.1); Bilirubin, Total 0.5 mg/dL (0.2-1.2); Calc. Creatinine Clearance 0 mL/min (70-130); Calcium 10.4 mg/dL (7.8-10.44); Carbon Dioxide 21 mmol/L (23-31); Chloride 101 mmol/L (98-107); Estimated GFR-MDRD 63; Globulin 2.9 g/dL (2.4-3.5); Glucose 428 mg/dL (83-110); Potassium 4.2 mmol/L (3.5-5.1); Protein, Total 6.9 g/dL (6.0-8.3); Sodium 135 mmol/L (136-145)
--- NOTE | 2018-08-10 17:08 | RAD ---
Chest one view HISTORY: Dizziness. Dyspnea. COMPARISON: 02/26/2018. FINDINGS: Cardiac silhouette is magnified by projection. Pulmonary vasculature is unremarkable. Media stinum is midline with aortic calcification. No lobar consolidation or evidence of pneumothorax. Degenerative changes right shoulder. IMPRESSION: Atherosclerosis. No active cardiopulmonary abnormalities are otherwise demonstrated.
[2018-08-10 17:27] LABS: Bilirubin Negative (Negative); Blood, Urine Negative (Negative); Clarity CLEAR (Clear); Glucose, Urine (Dipstick) >=1000 mg/dL (Negative); Leukocyte Small (Negative); Nitrite Negative (Negative); Protein, Urine (Dipstick) Negative (Neg-Trace); Urobilinogen 0.2 mg/dL (0.2-1.0)
[2018-08-10 17:30] LABS: Bacteria/HPF 1+ HPF (None Seen); Hyaline Casts/LPF 0-3 HYALINE CAST LPF (0-3 Hyaline); Pathc Cast-AUWi Flag 0.81 (0-2.49); RBC/HPF 0-3 HPF (0-3); Squamous Epithelial 0-3 HPF (0-3); WBC/HPF 21-50 HPF (0-3)
--- NOTE | 2018-08-10 17:43 | CT ---
CT head noncontrast HISTORY: Dizziness. COMPARISON: 01/25/2018. FINDINGS: There is no evidence of acute intracranial hemorrhage or infarct. Encephalomalacia from an old left frontal insult is again demonstrated. Mild chronic ischemic small vessel disease and diffuse cortical atrophy. There is no mass effect or shift of midline structures. Calcification withi n the arterial structures of the brain base. IMPRESSION: Chronic-type findings are stable. No acute intracranial abnormalities are demonstrated.
[2018-08-10] MEDS ORDERED: Meclizine HCl 25 MG TAB ONE (18:33)
== END 2018-08-10 19:44 | disposition home or self-care (01) ==
LOC: ERS 16:08
DX: R42 Dizziness and giddiness (principal); I25.2 Old myocardial infarction; E11.9 Type 2 diabetes mellitus without complications; I10 Essential (primary) hypertension; Z79.82 Long term (current) use of aspirin; Z79.899 Other long term (current) drug therapy
CPT/HCPCS: 36415; 70450; 71045; 80053; 81003; 81015; 82550; 83880; 84484; 85025; 87086; 93005; J8597

== ENCOUNTER 2019-01-08 14:26 | Outpatient (CLI) | payer MEDICARE, BC ==
--- NOTE | 2019-01-08 15:38 | ULT ---
Thyroid ultrasound: 01/08/2019 COMPARISON: None HISTORY: Thyroid cyst technique multiplanar grayscale sonographic imaging of the thyroid gland obtain ed. FINDINGS: There is nonspecific enlargement of the thyroid gland, the thyroid isthmus measuring 7 mm i n AP dimension, the right lobe measuring 5.7 x 2.9 x 2.0 cm, and the left lobe measuring 5.7 x 2.6 x 2.1 cm. A mildly complex cystic nodule is noted within the mid right lobe measuring 1.1 x 0.5 x 0.9 cm. There is a subcentimeter cyst within the midpole of the left lobe measuring 6 x 5 x 5 mm. IMPRESSION: Nonspecific enlargement of the thyroid gland. Small bilateral thyroid nodules, measuring up to 1.1 cm. Based on TI-RADS classification, nodules are TR3(mildly suspicious). Given small size (less than 1.5 cm), no further follow-up recommended.
== END 2019-01-08 14:27 | disposition home or self-care (01) ==
LOC: BICULT 14:26
PROVIDERS: ATTEND Internal Medicine Cardiovascular Disease
DX: E04.1 Nontoxic single thyroid nodule (principal); E04.2 Nontoxic multinodular goiter
CPT/HCPCS: 76536

== ENCOUNTER 2019-03-15 11:25 | Emergency (ER) | payer MEDICARE, BC ==
[2019-03-15 12:10] LABS: #Basophils 0.1 thou/uL (0.0-0.2); #Eosinphils 0.3 thou/uL (0.0-0.7); #Lymphocytes 2.9 thou/uL (1.20-3.40); #Monocytes 0.7 thou/uL (0.11-0.59); #Neutrophils 8.8 thou/uL (1.40-6.50); %Basophils 0.8 % (0.0-1.0); %Eosinophils 2.2 % (0.0-10.0); %Lymphocytes 22.7 % (21.0-51.0); %Monocytes 5.5 % (0.0-10.0); %Neutrophils 68.9 % (42.0-75.0); Hemoglobin 13.9 g/dL (12.0-16.0); Mean Corpuscular HGB CONC 33.2 g/dL (32.0-36.0); Mean Corpuscular Hemoglobin 28.2 pg (27.0-31.0); Mean Corpuscular Volume 85.1 fL (78.0-98.0); Platelet Count 301 thou/uL (130-400); Red Blood Cell (RBC) Count 4.91 mill/uL (4.20-5.40); White Blood Cell (WBC) Count 12.8 thou/uL (4.8-10.8)
[2019-03-15 12:30] LABS: ALT (SGPT) 12 U/L (8-55); AST (SGOT) 20 U/L (5-34); Albumin 4.2 g/dL (3.4-4.8); Alkaline Phosphatase 78 U/L (40-110); Anion Gap 14 mmol/L (10-20); BUN (Urea Nitrogen) 16 mg/dL (9.8-20.1); Bilirubin, Total 1.4 mg/dL (0.2-1.2); CK (CPK) 97 U/L (29-168); Calc. Creatinine Clearance 0 mL/min (70-130); Carbon Dioxide 23 mmol/L (23-31); Chloride 103 mmol/L (98-107); Estimated GFR-MDRD 73; Globulin 2.8 g/dL (2.4-3.5); Glucose 206 mg/dL (83-110); Sodium 136 mmol/L (136-145)
[2019-03-15 12:42] LABS: Acetaminophen Less than 6.0 mcg/mL (10.0-30.0); Alcohol Less than 10 mg/dL (Less than 10); Salicylate Less than 8.0 mg/dL (15.0-30.0)
[2019-03-15 12:45] LABS: Bilirubin Negative (Negative); Blood, Urine Negative (Negative); Clarity Clear (Clear); Glucose, Urine (Dipstick) Normal (Negative); Leukocyte 75 Leu/uL (Negative); Nitrite Negative (Negative); Protein, Urine (Dipstick) 10 mg/dL (Neg-Trace); RBC/HPF 0-3 HPF (0-3); Squamous Epithelial 0-3 HPF (0-3); Urobilinogen Normal mg/dL (Less than 2); WBC/HPF 0-3 HPF (0-3)
[2019-03-15 12:46] LABS: Amphetamine Not Detected (NotDetected); Barbiturates Screen Not Detected (NotDetected); Benzodiazepine Screen Not Detected (NotDetected); Cocaine Metabolite Screen Not Detected (NotDetected); Medtox Control Line Valid? VALID (VALID); Medtox Reader # READER 4; Methadone Not Detected (NotDetected); Methamphetamine Not Detected (NotDetected); Opiate Screen Not Detected (NotDetected); Oxycodone Screen Not Detected (NotDetected); Phencyclidine (PCP) Not Detected (NotDetected); THC/Cannabinoid Screen Not Detected (NotDetected); Tricyclic Screen Not Detected (NotDetected)
--- NOTE | 2019-03-15 12:50 | CT ---
EXAM: CT brain without contrast HISTORY: Altered mental status COMPARISON: 08/10/2018 TECHNIQUE: Multiple contiguous axial images were obtained and a CT of the brain without contrast. FINDINGS: There are scattered hypodensities in the subcortical and periventricular white matter consi stent with small vessel ischemic disease. There is no evidence of hydrocephalus, intracranial hemorrhage, or extra-axial fluid collection. The calvarium and overlying soft tissues are unremarkable. The visualized paranasal sinuses and masto id air cells are well aerated. IMPRESSION: No evidence of acute intracranial abnormality
[2019-03-15 12:55] LABS: Bacteria/HPF Rare-Few HPF (None Seen)
[2019-03-15 12:56] LABS: Transitional Epithelial 0-3 HPF (None Seen)
== END 2019-03-15 13:53 | disposition home or self-care (01) ==
LOC: ERS 11:25
DX: F07.81 Postconcussional syndrome (principal); E11.9 Type 2 diabetes mellitus without complications; I10 Essential (primary) hypertension; I25.2 Old myocardial infarction
CPT/HCPCS: 36415; 51701; 70450; 80053; 80306; 80307; 81003; 81015; 82550; 84484; 85025; 93005

== ENCOUNTER 2019-06-19 14:17 | Observation (INO) | payer MEDICARE, BC ==
--- NOTE | 2019-06-19 15:24 | RAD ---
RADIOGRAPH CHEST 1 VIEW: DATE: 06/19/2019 HISTORY: 79-year-old female with altered mental status, acute stroke-like symptoms. Concern for aspiration. FINDINGS: There are no airspace densities, pulmonary edema, pneumothorax, or cardiomegaly. The lateral costophr enic angles are sharp. IMPRESSION: No acute cardiopulmonary findings.
[2019-06-19 15:31] LABS: #Basophils 0.1 thou/uL (0.0-0.2); #Eosinphils 0.2 thou/uL (0.0-0.7); #Monocytes 0.7 thou/uL (0.11-0.59); #Neutrophils 7.9 thou/uL (1.40-6.50); %Basophils 0.7 % (0.0-1.0); %Eosinophils 1.6 % (0.0-10.0); %Lymphocytes 18.1 % (21.0-51.0); %Monocytes 6.1 % (0.0-10.0); %Neutrophils 73.5 % (42.0-75.0); Hemoglobin 13.2 g/dL (12.0-16.0); Mean Corpuscular HGB CONC 33.6 g/dL (32.0-36.0); Mean Corpuscular Hemoglobin 29.5 pg (27.0-31.0); Mean Corpuscular Volume 87.7 fL (78.0-98.0); Mean Platelet Volume 10.1 fL (7.4-10.4); Platelet Count 247 thou/uL (130-400); RBC Distribution Width 12.6 % (11.5-14.5); Red Blood Cell (RBC) Count 4.49 mill/uL (4.20-5.40); White Blood Cell (WBC) Count 10.8 thou/uL (4.8-10.8)
[2019-06-19 15:36] LABS: Prothrombin Time 13.2 SEC (12.0-14.7)
[2019-06-19 15:37] LABS: PTT 31.5 SEC (22.9-36.1)
--- NOTE | 2019-06-19 15:39 | CT ---
CT BRAIN NONCONTRAST: DATE: 06/19/2019 HISTORY: 79-year-old female with TIA. COMPARISON: 03/15/2019 FINDINGS: There is no evidence of acute intra-axial or extra-axial hemorrhage. There is no midline shift or any other mass effect. There is no extra-axial fluid collection. There is no evidence of obstructive hydrocephalus. Calvarium is intact. There is diffuse brain parenchymal volume loss. There are low att enuation areas in the white matter. These are nonspecific, but in a patient of this age, they are probably chronic ischemic white matter changes due to microvascular atherosclerosis. There are at domitila st 2 Moderate-sized foci of encephalomalacia and gliosis in the left frontal lobe representing old infarctions. The one located medially is definitely in the left anterior cerebral artery territory. T here has been no interval change. IMPRESSION: 1) No acute intracranial findings. 2) 2 small to moderate-sized old infarctions in the left frontal lobe. 3) involutional changes and chronic ischemic white matter changes.
[2019-06-19 15:51] LABS: ALT (SGPT) 12 U/L (8-55); AST (SGOT) 15 U/L (5-34); Albumin 4.1 g/dL (3.4-4.8); Alkaline Phosphatase 63 U/L (40-110); Anion Gap 13 mmol/L (10-20); BUN (Urea Nitrogen) 16 mg/dL (9.8-20.1); Bilirubin, Total 1.1 mg/dL (0.2-1.2); Calc. Creatinine Clearance 0 mL/min (70-130); Carbon Dioxide 24 mmol/L (23-31); Chloride 103 mmol/L (98-107); Estimated GFR-MDRD 86; Globulin 2.6 g/dL (2.4-3.5); Glucose 127 mg/dL (83-110); Protein, Total 6.7 g/dL (6.0-8.3); Sodium 136 mmol/L (136-145)
[2019-06-19] MEDS ORDERED: Aspirin Chewable 81 MG TAB ONE (16:26)
[2019-06-19] MEDS ORDERED: Acetaminophen 325 MG TAB PO PRN (16:29)
[2019-06-19] MEDS ORDERED: Acetaminophen 500 MG TAB PO PRN (16:31)
[2019-06-19] MEDS ORDERED: Cyanocobalamin 1000 MCG/ML VIAL IM SCH (16:45)
[2019-06-19 17:02] LABS: Cardiac Risk 2.8 (Less than 4.5)
--- NOTE | 2019-06-19 17:46 | HP ---
CHIEF COMPLAINT: Dysarthria. 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 She did not feel facial droopiness or significant weakness or sensory impairment in her extremities other than mild dysarthria. This symptom lasted less than 30 minutes. Her daughter visits her frequently. [place] that she needs to be evaluated. Symptoms started around 2:00 p.m. and resolved completely on arrival to the ER. The patient had no fever or productive cough. Not exposed to anyone with flu- like symptoms. Chest x-ray is negative for infiltrate. The patient has no history of AL. The patient is diabetic, and not on insulin. She was hospitalized in March 2018 for chest pain. REVIEW OF SYSTEMS: 13-point review of systems reviewed with the patient and pertinent addressed in the History of Present Illness. Rest are negative including no fever, night sweats, or chills. No change in her appetite and weight. No orthopnea, PND, or lower extremity edema.No nausea, vomiting, abdominal pain, constipation, diarrhea, hematuria, dysuria, hematochezia. Denies any headache or blurriness. No polyuria, polydipsia. No rash in her body. ALLERGIES: SHE IS ALLERGIC TO SULFAMETHAZINE. PAST MEDICAL HISTORY: 1. History of CVA roughly 4 years ago without residual deficits. 2. Hypertension. 3. Type 2 diabetes mellitus. MEDICATIONS: 1. Metformin 850 mg twice a day. 2. Glipizide 2.5 mg daily. 3. Norvasc 5 mg daily. 4. Lisinopril 10 mg daily. 5. Famotidine 20 mg twice a day. 6. B12 1000 mcg IM once a month. 7. Vitamin D 3000 units daily. 8. Lipitor 20 mg daily. 9. Aspirin 81 mg daily. SOCIAL HISTORY: Does not smoke or drink alcohol. Her daughter lives nearby and she frequently visits her. PHYSICAL EXAMINATION: VITAL SIGNS: She is afebrile. Blood pressure is 157/54, pulse is 57, temperature is 98.2. She is saturating 98% in room air. GENERAL: She is alert and oriented x4, well developed, well nourished young- looking 79-year-old female, not in any acute distress. HEENT: Pupils equal, round, and reactive to light. Anicteric. Mucous membranes moist. CARDIOVASCULAR: Regular rate and rhythm without murmurs, rubs, or gallops. LUNGS: Clear to auscultation bilaterally without wheezing, rales, or rhonchi. ABDOMEN: Soft, nontender, and nondistended. Good bowel sounds. EXTREMITIES: Without pitting edema. NEUROLOGICAL: She is able to lift her arms over head. Strength both in the upper and lower extremities, 4/5. Her knee reflex 1+. Ankle reflexes absent. No facial droopiness. No dysarthria currently. No nystagmus. Cranial nerves 2 through 12 grossly intact. SKIN: No obvious rashes noted in lower extremity. No pitting edema. PSYCHIATRIC: Appropriate mood and affect. LABORATORY DATA: Her CBC without any abnormality. CMP also in the normal range. Her triglyceride is 131, LDL is 34. IMAGING DATA: CT head, no acute intracranial findings. Small moderate-sized old infarct in the left frontal lobe and chronic white matter ischemic changes. IMPRESSION AND PLAN: This is a 79-year-old female with a history of hypertension, type 2 diabetes mellitus, cerebrovascular accident in the past without residual deficits, presenting with transient ischemic attack, specifically dysarthria. Her symptoms resolved. She will be admitted in the telemetry monitoring. Her last echo was in 2019, showing the EF of 55%, normal left ventricular function. She was admitted in March 2018 for chest pain, thought it was atypical. She had a catheterization roughly 3 years prior to 2019, showing no significant coronary artery disease. An MRI, MRA and echo. The patient does not show any dysarthria, so I do not suspect any dysphagia; however, we will complete the workup with Speech evaluation, and then start her diabetic diet. PT/OT evaluation as well. Her lipid panel came back with the LDL of less than 70. We will continue with her home regimen of aspirin, lisinopril, as well as statin. Gastrointestinal prophylaxis. She is on home regimen of Pepcid. Full code. Job ID: [id number] MTDD
[2019-06-19] MEDS: Famotidine 20 MG TAB PO SCH (20:41)
[2019-06-19 20:54] VITALS: BMI 27.6
[2019-06-20 05:09] LABS: Hemoglobin A1c 5.6 % (4.0-6.0)
[2019-06-20] MEDS: Aspirin 81 mg Enteric Coated Tablet PO SCH (08:31)
[2019-06-20] MEDS: Atorvastatin Calcium 20 MG TAB PO SCH (08:31)
[2019-06-20] MEDS: Famotidine 20 MG TAB PO SCH ×2 (08:31→20:11)
[2019-06-20] MEDS: metFORMIN 850 MG TAB PO SCH ×2 (08:32→18:24)
[2019-06-20] MEDS ORDERED: Lisinopril 5 MG TAB PO SCH (09:00)
[2019-06-20] MEDS ORDERED: Prevnar 13-Val Conj/PF 0.5 ML SYRINGE IM ONE (09:00)
[2019-06-20] MEDS ORDERED: Amlodipine 5 MG TAB PO SCH (09:00)
[2019-06-20] MEDS ORDERED: Metoprolol Tartrate 5 MG/5 ML VIAL IVP PRN (09:42)
[2019-06-20] MEDS ORDERED: Magnevist 469MG/ML 20 ML VIAL ONE (10:13)
--- NOTE | 2019-06-20 10:43 | MRI ---
Magnetic resonance angiogram MRA head noncontrast: DATE: 06/20/2019 HISTORY: 79-year-old female with TIA/stroke TECHNIQUE: 3-D [id number] MRA in multiple axial slabs through [place] of [place]. Source images and 3-D MIP re constructions. FINDINGS: No evidence of acquired high-grade short segment focal stenosis involving intracranial vertebral, bas ilar, posterior cerebral, carotid siphons, M1 segments of middle cerebral, and A2 segments of anterior cerebral, arteries, identified. There is an apparent short segment focal high-grade stenosis involving one of the branches of the right middle cerebral artery. A1 segment of right anterior cerebral artery is absent. Proximal portions of bilateral superior cerebellar arteries and AICAs are visualized. No aneurysm larger than 3 mm identified. Mild atherosclerotic irregularity involving all arteries. IMPRESSION: 1. Mild atherosclerosis involving all arteries. 2. Possible focal high-grade acquired stenosis involving one of the M2 branches of the right middle c erebral artery.
--- NOTE | 2019-06-20 10:51 | MRI ---
MRI BRAIN WITH AND WITHOUT CONTRAST: DATE: 06/20/2019 HISTORY: 79-year-old female with TIA and CVA COMPARISON: no prior MRI brain TECHNIQUE: Multiplanar, multisequence MRI of the brain performed pre- and post-IV injection of gadolinium based contrast agent. FINDINGS: There is either 1 or several contiguous regions of encephalomalacia and gliosis involving the left acevedo perior frontal gyrus and left paramedian frontal lobe anterior to the left frontal horn representing old infarctions involving left anterior cerebral artery territory. Slightly lateral to that, There is a 1.5 x 1.5 x 2 cm focus of encephalomalacia and gliosis involving the left middle frontal gyrus. There are mild to moderate chronic ischemic white matter changes. No obstructive hydrocephalus, recent or remote intra-axial hemorrhage, mass effect, midline shift, ex tra-axial fluid collection, restricted diffusion, or abnormal intra-axial enhancement. Partially empty sella. IMPRESSION: 1.) No acute findings. 2.) 2 medium-sized old left frontal infarctions.
--- NOTE | 2019-06-20 11:48 | PDOC.HOSPP ---
- Subjective Encounter Date: 06/20/19 Encounter Time: 09:10 Subjective: no further TIA sxs. echo and mRI pending, pt has no acute c/o, sitting in the bed, comfortable, no droopiness or dysarthria. speech clear. - Objective Vital Signs & Weight: Vital Signs (12 hours) Temp Pulse Pulse Pulse Resp BP BP 06/20/19 11:31 06/20/19 11:24 97.6 F 53 L 16 06/20/19 09:15 73 47 L 151/72 H 125/61 06/20/19 08:32 50 L 06/20/19 07:41 97.8 F 50 L 19 06/20/19 05:05 98.4 F 45 L 14 06/20/19 00:00 97.8 F 42 L 18 BP Pulse Ox 06/20/19 11:31 166/84 H 06/20/19 11:24 189/87 H 96 06/20/19 09:15 06/20/19 08:32 06/20/19 07:41 188/85 H 97 06/20/19 05:05 186/66 H 94 L 06/20/19 00:00 157/53 H 96 Weight Weight 151 lb Result Diagrams: 06/19/19 15:15 06/19/19 15:15 Hospitalist ROS - Medication Medications: Active Medications Generic Name Dose Route Start Last Admin Trade Name Freq PRN Reason Stop Dose Admin Aspirin 81 mg 06/20/19 09:00 06/20/19 08:31 Ecotrin PO 81 mg DAILY NAVEEN Administration Atorvastatin Calcium 20 mg 06/20/19 09:00 06/20/19 08:31 Lipitor PO 20 mg DAILY NAVEEN Administration Cholecalciferol 1,000 units 06/20/19 09:00 06/20/19 08:31 Vitamin D3 PO 1,000 units DAILY NAVEEN Administration Cyanocobalamin 1,000 mcg 06/19/19 16:45 06/19/19 20:47 Vitamin B-12 IM Not Given Q28D NAVEEN Famotidine 20 mg 06/19/19 21:00 06/20/19 08:31 Pepcid PO 20 mg BID NAVEEN Administration Glipizide 2.5 mg 06/20/19 08:00 06/20/19 08:31 Glucotrol Xl PO 2.5 mg QAM-WM NAVEEN Administration Metformin HCl 850 mg 06/20/19 08:00 06/20/19 08:32 Glucophage PO 850 mg BID-WM NAVEEN Administration - Exam General Appearance: NAD, awake alert Eye: PERRL ENT: normocephalic atraumatic Neck: supple Heart: RRR, normal peripheral pulses Respiratory: CTAB Gastrointestinal: soft, normal bowel sounds Neurological: no focal deficits Hosp A/P - Plan TIA Dysarthria -r-esolved Brain MRI -- old 2 left frontal infarct R.MCA - high grade stenosis - will fw carotid doppler and 2 d echo -asa, lipitor and acei HLP -on statin HTN--suboptimal - norvasc and lisinopril - dose uptitrated this am. type 2 DM - glipizide and metformin. pending echo and doppler
--- NOTE | 2019-06-20 14:34 | ULT ---
Ultrasound Doppler duplex carotid: DATE: 06/20/2019 HISTORY: 79-year-old female with CVA TECHNIQUE: Grayscale, color-flow, and spectral analysis, of major arteries of neck. FINDINGS: Highest peak systolic velocities in the internal carotid arteries are approximately 65 to 70 cm/s bethanie aterally. ICA/CCA ratios are 0.8 on the right and 0.7 on the left. There is multifocal mild left and moderate atheromatous plaque in the bilateral carotid bulbs, involv ing the proximal internal carotid arteries, proximal external carotid arteries, and distal common carotid arteries. IMPRESSION: 1. Bilateral carotid atherosclerosis. 2. No evidence of hemodynamically significant stenosis.
[2019-06-20] MEDS: Lisinopril 20 MG TAB PO SCH (20:11)
[2019-06-21] MEDS: Famotidine 20 MG TAB PO SCH (08:23)
[2019-06-21] MEDS: Atorvastatin Calcium 20 MG TAB PO SCH (08:23)
[2019-06-21] MEDS: Aspirin 81 mg Enteric Coated Tablet PO SCH (08:24)
[2019-06-21] MEDS: Lisinopril 20 MG TAB PO SCH (08:24)
[2019-06-21] MEDS: metFORMIN 850 MG TAB PO SCH (08:24)
[2019-06-21] MEDS ORDERED: Amlodipine 10 MG TAB PO SCH (09:00)
[2019-06-21 12:06] VITALS: BP 136/59; TEMP 98.1
--- NOTE | 2019-06-22 06:05 | DIS ---
DATE OF ADMISSION: 06/19/2019 DATE OF DISCHARGE: 06/21/2019 DISCHARGE DIAGNOSES: Transient ischemic attack specifically dysarthria, hypertension, type 2 diabetes mellitus, remote history of cerebrovascular accident without any residual deficits. DISCHARGE MEDICATIONS: 1. Aspirin 81 mg daily. 2. Lipitor 20 mg daily. 3. Vitamin D3 of 3000 units daily. 4. B12 of 1000 mcg once a month. 5. Famotidine 20 mg twice a day. 6. Lisinopril 20 mg twice a day. 7. Norvasc 10 mg daily. 8. Metformin 850 mg daily. 9. Glipizide 2.5 mg daily. PHYSICAL EXAMINATION: GENERAL: On the day of discharge, the patient is alert, oriented, not in any acute distress. Ambulating without any residual deficits. VITAL SIGNS: Temperature 97.6, pulse 46, blood pressure 137/45, and saturating 100% on room air. CARDIOVASCULAR: Regular rate and rhythm without murmurs, rubs, or gallops. LUNGS: Clear to auscultation bilaterally without wheezing, rales, or rhonchi. ABDOMEN: Soft, nontender, and nondistended. Good bowel sounds. EXTREMITIES: Without any pitting edema. Neuro - no focal deficits. HOSPITAL COURSE: An 79-year-old female with a history of CVA remotely, hypertension, and type 2 diabetes mellitus, presenting with dysarthria. Ischemic stroke workup performed. She had a MRI, showed no obstructive hydrocephalus, recent or remote hemorrhage, mass effect, midline shift. She has two medium-sized old left frontal infarctions. MRA showed mild atherosclerosis, focal high-grade stenosis in the M2 branch of the right MCA. Subsequently, carotid Doppler showed bilateral carotid atherosclerosis without hemodynamic significant stenosis. 2D echo showed an EF of 55%, grade 3 diastolic dysfunction, and moderate tricuspid and mild mitral regurgitation, calcified aortic valve, and [id number] aortic wall stenosis. Neurologically she is at baseline without any new deficits. Patient is discharged hemodynamically in stable condition with the close followup with the primary care physician. Recommend followup study with echo given her [id number] aortic stenosis in 6 months and Cardiology referral as an outpatient. DISCHARGE INSTRUCTIONS: Activity as tolerated. Diabetic diet. Follow up with the primary care physician in one week. TIME SPENT: Discharge time took over 30 minutes. Job ID: [id number] [facility]
== END 2019-06-21 14:16 | disposition home or self-care (01) ==
LOC: ERS 14:17 → 2SE 16:22
PROVIDERS: ADMIT Internal Medicine; ATTEND Internal Medicine
DX: G45.9 Transient cerebral ischemic attack, unspecified (principal); I10 Essential (primary) hypertension; E11.9 Type 2 diabetes mellitus without complications; E78.5 Hyperlipidemia, unspecified; I08.1 Rheumatic disorders of both mitral and tricuspid valves; Z79.82 Long term (current) use of aspirin; Z79.84 Long term (current) use of oral hypoglycemic drugs; Z79.899 Other long term (current) drug therapy; Z86.73 Personal history of transient ischemic attack (TIA), and cerebral infarction without residual deficits; Z88.2 Allergy status to sulfonamides
CPT/HCPCS: 70450; 70544; 70553; 71045; 80061; 83036; 84484; 85610; 85730; 93005; 93306; 93880; 94760; 97116; 97139 ×5; 99285; G0378 ×4; 36415; 80053; 84443; 85025; A9579

== ENCOUNTER 2020-06-15 13:36 | Inpatient (IN) | payer MEDICARE, BC ==
[2020-06-15 14:12] LABS: #Basophils 0.1 thou/uL (0.0-0.2); #Eosinphils 0.2 thou/uL (0.0-0.7); #Lymphocytes 2.2 thou/uL (1.20-3.40); #Neutrophils 9.3 thou/uL (1.40-6.50); %Basophils 0.8 % (0.0-1.0); %Eosinophils 1.4 % (0.0-10.0); %Lymphocytes 17.1 % (21.0-51.0); %Monocytes 7.7 % (0.0-10.0); Hemoglobin 13.7 g/dL (12.0-16.0); Mean Corpuscular HGB CONC 33.4 g/dL (32.0-36.0); Mean Corpuscular Volume 86.8 fL (78.0-98.0); Mean Platelet Volume 9.9 fL (7.4-10.4); Platelet Count 241 thou/uL (130-400); RBC Distribution Width 12.4 % (11.5-14.5); Red Blood Cell (RBC) Count 4.71 mill/uL (4.20-5.40); White Blood Cell (WBC) Count 12.7 thou/uL (4.8-10.8)
[2020-06-15 14:32] LABS: Bacteria/HPF None Seen HPF (None Seen); Bilirubin Negative (Negative); Blood, Urine Negative (Negative); Clarity Clear (Clear); Glucose, Urine (Dipstick) 50 mg/dL (Negative); Ketone, Urine Negative (Negative); Leukocyte Negative Leu/uL (Negative); Nitrite Negative (Negative); Protein, Urine (Dipstick) 30 mg/dL (Neg-Trace); RBC/HPF 0-3 HPF (0-3); Specific Gravity, Urine 1.031 (1.002-1.036); Squamous Epithelial 0-3 HPF (0-3); Urobilinogen 3 mg/dL (Less than 2); WBC/HPF 0-3 HPF (0-3); pH, Urine 5.5 (5.0-9.0)
[2020-06-15 14:34] LABS: ALT (SGPT) 8 U/L (8-55); AST (SGOT) 13 U/L (5-34); Albumin 4.1 g/dL (3.4-4.8); Alkaline Phosphatase 88 U/L (40-110); Anion Gap 12 mmol/L (10-20); BUN (Urea Nitrogen) 19 mg/dL (9.8-20.1); Bilirubin, Total 1.2 mg/dL (0.2-1.2); Calc. Creatinine Clearance 0 mL/min (70-130); Calcium 10.1 mg/dL (7.8-10.44); Carbon Dioxide 25 mmol/L (23-31); Chloride 100 mmol/L (98-107); Globulin 3.3 g/dL (2.4-3.5); Glucose 200 mg/dL (83-110); Potassium 3.7 mmol/L (3.5-5.1); Protein, Total 7.4 g/dL (5.8-8.1); Sodium 133 mmol/L (136-145)
[2020-06-15] MEDS ORDERED: Aspirin Chewable 81 MG TAB ONE (16:51)
[2020-06-15 18:00] LABS: Troponin I Less than 0.010 ng/mL (< 0.028)
[2020-06-15 18:02] VITALS: BMI 24.1
[2020-06-15] MEDS ORDERED: Dextrose 5% in Water 1,000 ML IV PRN (19:00)
[2020-06-15] MEDS ORDERED: Acetaminophen 325 MG TAB PO PRN (19:00)
[2020-06-15] MEDS ORDERED: hydrALAZINE 20 MG/ML VIAL SLOW IVP PRN (19:00)
[2020-06-15] MEDS ORDERED: Dextrose 50% Abboject 50 ML SYRINGE SLOW IVP PRN (19:00)
[2020-06-15 21:03] LABS: Troponin I Less than 0.010 ng/mL (< 0.028)
[2020-06-15] MEDS: HumaLOG 300 UNITS/3 ML VIAL SC PRN (22:16)
[2020-06-16 01:50] LABS: SARS-CoV-2 PCR by NAA Not Detected (NotDetected)
[2020-06-16 05:20] LABS: #Basophils 0.1 thou/uL (0.0-0.2); #Eosinphils 0.3 thou/uL (0.0-0.7); #Lymphocytes 2.3 thou/uL (1.20-3.40); #Monocytes 0.8 thou/uL (0.11-0.59); #Neutrophils 6.3 thou/uL (1.40-6.50); %Eosinophils 2.6 % (0.0-10.0); %Lymphocytes 23.7 % (21.0-51.0); %Monocytes 8.5 % (0.0-10.0); %Neutrophils 64.2 % (42.0-75.0); Hemoglobin 12.4 g/dL (12.0-16.0); Mean Corpuscular HGB CONC 32.6 g/dL (32.0-36.0); Mean Corpuscular Hemoglobin 28.3 pg (27.0-31.0); Mean Corpuscular Volume 86.9 fL (78.0-98.0); Mean Platelet Volume 9.9 fL (7.4-10.4); Platelet Count 212 thou/uL (130-400); RBC Distribution Width 12.4 % (11.5-14.5); Red Blood Cell (RBC) Count 4.36 mill/uL (4.20-5.40); White Blood Cell (WBC) Count 9.9 thou/uL (4.8-10.8)
[2020-06-16 05:48] LABS: Anion Gap 11 mmol/L (10-20); BUN (Urea Nitrogen) 13 mg/dL (9.8-20.1); Calc. Creatinine Clearance 66 mL/min (70-130); Calcium 9.7 mg/dL (7.8-10.44); Carbon Dioxide 26 mmol/L (23-31); Cardiac Risk 3.6 (Less than 4.5); Chloride 101 mmol/L (98-107); Cholesterol 94 mg/dl (< 200 Desired); Glucose 135 mg/dL (83-110); HDL Cholesterol 26 mg/dL (>60 Neg Risk); LDL Cholesterol, Calculated 45 mg/dL; Potassium 3.9 mmol/L (3.5-5.1); Sodium 134 mmol/L (136-145); Triglycerides 116 mg/dL (Less than 150)
[2020-06-16] MEDS ORDERED: Amlodipine 5 MG TAB PO SCH (10:45)
[2020-06-16] MEDS ORDERED: Lisinopril 10 MG TAB PO SCH (10:45)
[2020-06-16] MEDS ORDERED: Lidocaine 1% (PF) 30 ML VIAL ONE (11:08)
[2020-06-16] MEDS ORDERED: CEFAZOLIN 1 GM VIAL ONE (11:08)
[2020-06-16] MEDS ORDERED: Gentamicin 80 MG/2 ML VIAL ONE (11:08)
[2020-06-16] MEDS ORDERED: Apixaban 5 MG TAB PO SCH ×2 (21:00)
[2020-06-16] MEDS: Atorvastatin Calcium 20 MG TAB PO SCH (21:27)
[2020-06-17 05:45] LABS: #Basophils 0.1 thou/uL (0.0-0.2); #Eosinphils 0.2 thou/uL (0.0-0.7); #Neutrophils 8.9 thou/uL (1.40-6.50); %Basophils 0.7 % (0.0-1.0); %Eosinophils 1.3 % (0.0-10.0); %Lymphocytes 16.7 % (21.0-51.0); %Monocytes 7.8 % (0.0-10.0); %Neutrophils 73.6 % (42.0-75.0); Hemoglobin 13.5 g/dL (12.0-16.0); Mean Corpuscular HGB CONC 32.7 g/dL (32.0-36.0); Mean Corpuscular Hemoglobin 28.4 pg (27.0-31.0); Mean Corpuscular Volume 86.8 fL (78.0-98.0); Mean Platelet Volume 11.2 fL (7.4-10.4); Platelet Count 173 thou/uL (130-400); RBC Distribution Width 12.4 % (11.5-14.5); Red Blood Cell (RBC) Count 4.76 mill/uL (4.20-5.40); White Blood Cell (WBC) Count 12.1 thou/uL (4.8-10.8)
[2020-06-17 06:03] LABS: Anion Gap 13 mmol/L (10-20); BUN (Urea Nitrogen) 11 mg/dL (9.8-20.1); Calc. Creatinine Clearance 70 mL/min (70-130); Carbon Dioxide 22 mmol/L (23-31); Chloride 101 mmol/L (98-107); Glucose 156 mg/dL (83-110); Potassium 3.9 mmol/L (3.5-5.1); Sodium 132 mmol/L (136-145)
[2020-06-17] MEDS: HumaLOG 300 UNITS/3 ML VIAL SC PRN ×3 (06:48→20:19)
[2020-06-17] MEDS ORDERED: Ondansetron PF 4 MG/2 ML Vial IVP PRN (08:54)
[2020-06-17] MEDS ORDERED: hydrALAZINE 20 MG/ML VIAL SLOW IVP PRN (08:54)
[2020-06-17] MEDS ORDERED: Polyethylene Glycol 3350 17 GM Packet PO PRN (08:54)
[2020-06-17] MEDS ORDERED: Senokot S 8.6-50 MG TAB PO PRN (08:54)
[2020-06-17] MEDS: Amlodipine 5 MG TAB PO SCH (09:29)
[2020-06-17] MEDS: Lisinopril 20 MG TAB PO SCH (09:29)
[2020-06-17 15:11] LABS: #Basophils 0.1 thou/uL (0.0-0.2); #Eosinphils 0.2 thou/uL (0.0-0.7); #Lymphocytes 1.8 thou/uL (1.20-3.40); #Monocytes 1.1 thou/uL (0.11-0.59); #Neutrophils 10.5 thou/uL (1.40-6.50); %Basophils 0.6 % (0.0-1.0); %Eosinophils 1.3 % (0.0-10.0); %Lymphocytes 13.1 % (21.0-51.0); Mean Corpuscular HGB CONC 32.1 g/dL (32.0-36.0); Mean Corpuscular Hemoglobin 27.7 pg (27.0-31.0); Mean Corpuscular Volume 86.2 fL (78.0-98.0); Mean Platelet Volume 9.6 fL (7.4-10.4); Platelet Count 232 thou/uL (130-400); RBC Distribution Width 12.4 % (11.5-14.5); Red Blood Cell (RBC) Count 4.68 mill/uL (4.20-5.40); White Blood Cell (WBC) Count 13.7 thou/uL (4.8-10.8)
[2020-06-17] MEDS: Atorvastatin Calcium 20 MG TAB PO SCH (20:19)
[2020-06-18 05:32] LABS: Anion Gap 13 mmol/L (10-20); BUN (Urea Nitrogen) 12 mg/dL (9.8-20.1); Calc. Creatinine Clearance 64 mL/min (70-130); Calcium 9.6 mg/dL (7.8-10.44); Carbon Dioxide 21 mmol/L (23-31); Chloride 100 mmol/L (98-107); Glucose 184 mg/dL (83-110); Potassium 3.9 mmol/L (3.5-5.1); Sodium 130 mmol/L (136-145)
[2020-06-18] MEDS: HumaLOG 300 UNITS/3 ML VIAL SC PRN ×3 (06:08→17:13)
[2020-06-18] MEDS: Amlodipine 5 MG TAB PO SCH (11:11)
[2020-06-18] MEDS: Lisinopril 20 MG TAB PO SCH (11:12)
[2020-06-18] MEDS: Apixaban 5 MG TAB PO SCH ×2 (11:12→20:46)
[2020-06-18] MEDS: Atorvastatin Calcium 20 MG TAB PO SCH (20:46)
[2020-06-19] MEDS: HumaLOG 300 UNITS/3 ML VIAL SC PRN ×3 (06:07→21:11)
[2020-06-19] MEDS: Apixaban 5 MG TAB PO SCH ×2 (09:33→20:00)
[2020-06-19] MEDS: Amlodipine 5 MG TAB PO SCH (09:33)
[2020-06-19] MEDS: Lisinopril 20 MG TAB PO SCH (09:34)
[2020-06-19] MEDS: Atorvastatin Calcium 20 MG TAB PO SCH (20:01)
[2020-06-20 05:33] LABS: #Eosinphils 0.3 thou/uL (0.0-0.7); #Lymphocytes 2.2 thou/uL (1.20-3.40); #Monocytes 1.1 thou/uL (0.11-0.59); #Neutrophils 8.5 thou/uL (1.40-6.50); %Basophils 0.3 % (0.0-1.0); %Eosinophils 2.3 % (0.0-10.0); %Lymphocytes 17.8 % (21.0-51.0); %Monocytes 8.9 % (0.0-10.0); %Neutrophils 70.7 % (42.0-75.0); Hemoglobin 12.2 g/dL (12.0-16.0); Mean Corpuscular HGB CONC 32.8 g/dL (32.0-36.0); Mean Corpuscular Hemoglobin 28.2 pg (27.0-31.0); Mean Corpuscular Volume 86.1 fL (78.0-98.0); Mean Platelet Volume 9.7 fL (7.4-10.4); Platelet Count 260 thou/uL (130-400); RBC Distribution Width 12.1 % (11.5-14.5); Red Blood Cell (RBC) Count 4.32 mill/uL (4.20-5.40); White Blood Cell (WBC) Count 12.1 thou/uL (4.8-10.8)
[2020-06-20] MEDS: HumaLOG 300 UNITS/3 ML VIAL SC PRN ×2 (05:47→12:46)
[2020-06-20 05:51] LABS: Anion Gap 12 mmol/L (10-20); BUN (Urea Nitrogen) 14 mg/dL (9.8-20.1); Calc. Creatinine Clearance 71 mL/min (70-130); Calcium 9.7 mg/dL (7.8-10.44); Carbon Dioxide 23 mmol/L (23-31); Chloride 100 mmol/L (98-107); Glucose 162 mg/dL (83-110); Potassium 4.1 mmol/L (3.5-5.1); Sodium 131 mmol/L (136-145)
[2020-06-20] MEDS: Lisinopril 20 MG TAB PO SCH (09:38)
[2020-06-20] MEDS: Amlodipine 5 MG TAB PO SCH (09:40)
[2020-06-20] MEDS: Apixaban 5 MG TAB PO SCH (09:40)
[2020-06-20 11:58] VITALS: BP 147/52; TEMP 98.7
== END 2020-06-20 13:17 | DRG 242 ==
LOC: ERS 13:36 → 2SE 16:18 → OBSVTOIN 06-16 13:21
PROVIDERS: ADMIT Hospitalist; ATTEND Internal Medicine
PROC: 0JH606Z Insertion of Pacemaker, Dual Chamber into Chest Subcutaneous Tissue and Fascia, Open Approach (ICD-10-PCS; principal; 2020-06-16)
PROC: 02H63JZ Insertion of Pacemaker Lead into Right Atrium, Percutaneous Approach (ICD-10-PCS; 2020-06-16)
PROC: 02HK3JZ Insertion of Pacemaker Lead into Right Ventricle, Percutaneous Approach (ICD-10-PCS; 2020-06-16)
DX: I49.5 Sick sinus syndrome (principal); G93.41 Metabolic encephalopathy; F03.90 Unspecified dementia, unspecified severity, without behavioral disturbance, psychotic disturbance, mood disturbance, and anxiety; I42.8 Other cardiomyopathies; I10 Essential (primary) hypertension; Z88.2 Allergy status to sulfonamides; Z86.73 Personal history of transient ischemic attack (TIA), and cerebral infarction without residual deficits; Z79.01 Long term (current) use of anticoagulants; Z90.49 Acquired absence of other specified parts of digestive tract; Z79.84 Long term (current) use of oral hypoglycemic drugs; I25.10 Atherosclerotic heart disease of native coronary artery without angina pectoris; I48.91 Unspecified atrial fibrillation; I08.0 Rheumatic disorders of both mitral and aortic valves; E11.65 Type 2 diabetes mellitus with hyperglycemia
CPT/HCPCS: 33208; 36415; 36416; 51701; 70450; 70551; 71045; 80048; 80053; 80061; 81003; 81015; 83605; 83880; 84484; 85025; 87086; 87635; 93005; 93010; 93306; 94760; 95712; 95819; 95957; 97139; C1785; C1898; G0378; J0690; J1580; J1815; J2001; U0003; U0005

== ENCOUNTER 2022-09-16 11:49 | Inpatient (IN) | payer MEDICARE, BC ==
[2022-09-16 13:03] LABS: #Basophils 0.1 thou/uL (0.0-0.2); #Eosinphils 0.1 thou/uL (0.0-0.7); #Monocytes 1.5 thou/uL (0.11-0.59); #Neutrophils 18.8 thou/uL (1.40-6.50); %Basophils 0.5 % (0.0-1.0); %Eosinophils 0.4 % (0.0-10.0); %Lymphocytes 4.2 % (21.0-51.0); %Monocytes 6.8 % (0.0-10.0); %Neutrophils 85.2 % (42.0-75.0); Hematocrit 36.7 % (36.0-47.0); Hemoglobin 11.6 g/dL (12.0-16.0); Mean Corpuscular HGB CONC 31.6 g/dL (32.0-36.0); Mean Corpuscular Hemoglobin 25.5 pg (27.0-31.0); Mean Corpuscular Volume 80.7 fl (78.0-98.0); Mean Platelet Volume 12.7 fL (7.4-10.4); Platelet Count 272 10x3/uL (130-400); RBC Distribution Width 14.4 % (11.5-14.5); Red Blood Cell (RBC) Count 4.55 mill/uL (4.20-5.40); White Blood Cell (WBC) Count 22.1 10x3/uL (4.8-10.8)
[2022-09-16 13:28] LABS: ALT (SGPT) 20 U/L (8-55); AST (SGOT) 24 U/L (5-34); Albumin 3.5 g/dL (3.4-4.8); Alkaline Phosphatase 112 U/L (40-110); Anion Gap 14 mmol/L (10-20); BUN (Urea Nitrogen) 20 mg/dL (9.8-20.1); Bilirubin, Total 0.9 mg/dL (0.2-1.2); Calc. Creatinine Clearance 0 mL/min (70-130); Calcium 9.1 mg/dL (7.8-10.44); Carbon Dioxide 23 mmol/L (23-31); Chloride 100 mmol/L (98-107); Estimated GFR 52; Globulin 3.2 g/dL (2.4-3.5); Glucose 291 mg/dL (83-110); Potassium 3.7 mmol/L (3.5-5.1); Protein, Total 6.7 g/dL (5.8-8.1); Sodium 133 mmol/L (136-145)
[2022-09-16 13:48] LABS: CKMB 2.2 ng/mL (0-6.6)
[2022-09-16] MEDS ORDERED: hydrALAZINE 20 MG/ML VIAL SLOW IVP PRN (15:30)
[2022-09-16] MEDS ORDERED: Ipratropium/Albuterol 3 ML NEB NEB PRN (15:30)
[2022-09-16] MEDS ORDERED: Dextrose 50% Abboject 50 ML SYRINGE SLOW IVP PRN (15:30)
[2022-09-16] MEDS ORDERED: Dextrose 5% in Water 1,000 ML IV PRN (15:30)
[2022-09-16] MEDS ORDERED: Glucagon 1 MG/ML KIT IM PRN (15:30)
[2022-09-16] MEDS ORDERED: Ondansetron PF 4 MG/2 ML Vial IVP PRN (15:30)
[2022-09-16] MEDS ORDERED: Ondansetron ODT 4 MG TAB PO PRN (15:30)
[2022-09-16] MEDS ORDERED: fentaNYL 50 mcg/mL 1 mL Vial ONE (15:34)
[2022-09-16] MEDS ORDERED: Cyclobenzaprine 10 MG TAB PO PRN (15:36)
[2022-09-16 18:21] VITALS: BMI 25.8
[2022-09-16 19:01] LABS: Troponin I 0.036 ng/mL (< 0.028)
[2022-09-16] MEDS: Ketorolac Tromethamine 30 MG/ML VIAL IVP SCH ×2 (19:18→23:59)
[2022-09-16] MEDS: Acetaminophen 325 MG TAB PO SCH ×2 (19:18→23:59)
[2022-09-16] MEDS: Melatonin 3 MG TAB PO PRN (20:37)
[2022-09-16] MEDS: Acetaminophen/Codeine 30-300mg Tablet PO PRN (20:37)
[2022-09-16] MEDS: Famotidine 20 MG TAB PO SCH (20:38)
[2022-09-16] MEDS: Insulin Regular 300 UNITS/3 ML VIAL SC PRN (22:10)
[2022-09-16] MEDS ORDERED: Sodium Chloride 0.9% 1,000 ML IV SCH (23:55)
[2022-09-17 04:52] LABS: #Basophils 0.1 thou/uL (0.0-0.2); #Eosinphils 0.3 thou/uL (0.0-0.7); #Monocytes 0.9 thou/uL (0.11-0.59); #Neutrophils 10.3 thou/uL (1.40-6.50); %Basophils 0.6 % (0.0-1.0); %Eosinophils 2.5 % (0.0-10.0); %Monocytes 6.4 % (0.0-10.0); %Neutrophils 76.3 % (42.0-75.0); Hematocrit 29.5 % (36.0-47.0); Hemoglobin 9.4 g/dL (12.0-16.0); Mean Corpuscular HGB CONC 31.9 g/dL (32.0-36.0); Mean Corpuscular Volume 81.5 fl (78.0-98.0); Mean Platelet Volume 12.8 fL (7.4-10.4); Platelet Count 218 10x3/uL (130-400); RBC Distribution Width 14.5 % (11.5-14.5); Red Blood Cell (RBC) Count 3.62 mill/uL (4.20-5.40); White Blood Cell (WBC) Count 13.4 10x3/uL (4.8-10.8)
[2022-09-17] MEDS: Acetaminophen 325 MG TAB PO SCH ×4 (05:21→23:45)
[2022-09-17] MEDS: Ketorolac Tromethamine 30 MG/ML VIAL IVP SCH ×4 (05:21→23:45)
[2022-09-17 05:22] LABS: Phosphorus 3.4 mg/dL (2.3-4.7)
[2022-09-17 05:25] LABS: Anion Gap 13 mmol/L (10-20); BUN (Urea Nitrogen) 27 mg/dL (9.8-20.1); Calc. Creatinine Clearance 38 mL/min (70-130); Calcium 8.7 mg/dL (7.8-10.44); Carbon Dioxide 22 mmol/L (23-31); Chloride 105 mmol/L (98-107); Estimated GFR 46; Glucose 214 mg/dL (83-110); Magnesium 1.8 mg/dL (1.6-2.6); Sodium 136 mmol/L (136-145)
[2022-09-17] MEDS: Insulin Regular 300 UNITS/3 ML VIAL SC PRN ×2 (06:29→17:34)
[2022-09-17 07:20] LABS: Bacteria/HPF None Seen HPF (None Seen); Bilirubin Negative (Negative); Blood, Urine Negative (Negative); Clarity Clear (Clear); Glucose, Urine (Dipstick) >=1000 mg/dL (Negative); Ketone, Urine Negative (Negative); Leukocyte Negative Leu/uL (Negative); Nitrite Negative (Negative); Protein, Urine (Dipstick) 30 mg/dL (Neg-Trace); Specific Gravity, Urine 1.022 (1.002-1.036); Squamous Epithelial None Seen HPF (0-3); Urobilinogen 3 mg/dL (Less than 2); WBC/HPF 0-3 HPF (0-3); pH, Urine 5.5 (5.0-9.0)
[2022-09-17] MEDS: Morphine 2 MG/ML VIAL SLOW IVP PRN (09:54)
[2022-09-17] MEDS: Senokot S 8.6-50 MG TAB PO SCH ×2 (09:55→20:48)
[2022-09-17] MEDS: Polyethylene Glycol 3350 17 GM Packet PO SCH (09:55)
[2022-09-17] MEDS: Sodium Chloride 0.9% 1,000 ML IV SCH ×2 (10:02→20:49)
[2022-09-17] MEDS: Famotidine 20 MG TAB PO SCH ×2 (10:38→20:48)
[2022-09-17] MEDS ORDERED: CEFAZOLIN 2 GM in Sodium Chloride 0.9% 100 ML IVPB SCH (11:15)
[2022-09-17] MEDS: Melatonin 3 MG TAB PO PRN (20:49)
[2022-09-18 05:50] LABS: #Basophils 0.1 thou/uL (0.0-0.2); #Eosinphils 0.4 thou/uL (0.0-0.7); #Monocytes 0.8 thou/uL (0.11-0.59); #Neutrophils 14.4 thou/uL (1.40-6.50); %Basophils 0.5 % (0.0-1.0); %Eosinophils 2.2 % (0.0-10.0); %Monocytes 4.9 % (0.0-10.0); %Neutrophils 83.5 % (42.0-75.0); Hematocrit 32.2 % (36.0-47.0); Hemoglobin 9.9 g/dL (12.0-16.0); Mean Corpuscular HGB CONC 30.7 g/dL (32.0-36.0); Mean Corpuscular Hemoglobin 25.2 pg (27.0-31.0); Mean Corpuscular Volume 81.9 fl (78.0-98.0); Mean Platelet Volume 13.2 fL (7.4-10.4); Platelet Count 249 10x3/uL (130-400); RBC Distribution Width 14.6 % (11.5-14.5); Red Blood Cell (RBC) Count 3.93 mill/uL (4.20-5.40); White Blood Cell (WBC) Count 17.2 10x3/uL (4.8-10.8)
[2022-09-18 06:19] LABS: Anion Gap 12 mmol/L (10-20); BUN (Urea Nitrogen) 16 mg/dL (9.8-20.1); Calc. Creatinine Clearance 63 mL/min (70-130); Calcium 8.4 mg/dL (7.8-10.44); Carbon Dioxide 21 mmol/L (23-31); Chloride 104 mmol/L (98-107); Estimated GFR 84; Glucose 162 mg/dL (83-110); Potassium 4.5 mmol/L (3.5-5.1); Sodium 132 mmol/L (136-145)
[2022-09-18] MEDS: Ketorolac Tromethamine 30 MG/ML VIAL IVP SCH ×4 (06:37→23:49)
[2022-09-18] MEDS: Acetaminophen 325 MG TAB PO SCH ×4 (06:37→23:49)
[2022-09-18] MEDS ORDERED: Vancomycin HCl 1.5 GM in Sodium Chloride 0.9% 250 ML 300 ML IVPB SCH (07:30)
[2022-09-18] MEDS ORDERED: CEFAZOLIN 2 GM in Sodium Chloride 0.9% 100 ML IVPB SCH (07:30)
[2022-09-18] MEDS: Polyethylene Glycol 3350 17 GM Packet PO SCH (07:43)
[2022-09-18] MEDS: Senokot S 8.6-50 MG TAB PO SCH ×2 (07:43→20:04)
[2022-09-18] MEDS ORDERED: fentaNYL PF 100 MCG/2 ML SYRINGE ONE (12:17)
[2022-09-18] MEDS ORDERED: SUGAMMADEX SODIUM 200 MG/2 ML VIAL ONE (12:18)
[2022-09-18] MEDS ORDERED: Vancomycin (BATCH) 1.5 GRAM/300 ML BAG ONE (12:46)
[2022-09-18] MEDS ORDERED: Vancomycin 1 GM/200 ML (FROZEN) BAG ONE (13:02)
[2022-09-18] MEDS: Sodium Chloride 0.9% 1,000 ML IV SCH (13:07)
[2022-09-18] MEDS ORDERED: Sodium Chloride 0.9% 100 ML ONE (13:27)
[2022-09-18] MEDS ORDERED: CEFAZOLIN 2 GM VIAL ONE (13:27)
[2022-09-18] MEDS ORDERED: PROPOFOL 200 MG/20 ML VIAL ONE (13:57)
[2022-09-18] MEDS ORDERED: Ondansetron PF 4 MG/2 ML Vial ONE (13:57)
[2022-09-18] MEDS ORDERED: Lidocaine 1% PF 5 ML VIAL ONE (13:57)
[2022-09-18] MEDS ORDERED: Dexamethasone 20 MG/5 ML VIAL ONE (13:57)
[2022-09-18] MEDS ORDERED: fentaNYL 50 mcg/mL 1 mL Vial ONE ×3 (14:17→16:03)
[2022-09-18] MEDS ORDERED: Non-Formulary Medication 1 EACH PO PRN (16:09)
[2022-09-18] MEDS ORDERED: Ondansetron HCl/PF 4 MG/2 ML Vial IVP PRN (16:15)
[2022-09-18] MEDS ORDERED: Meperidine HCl/PF 25 MG/ML VIAL IV PRN (16:15)
[2022-09-18] MEDS ORDERED: HYDROmorphone 2 MG/ML VIAL SLOW IVP PRN (16:15)
[2022-09-18] MEDS ORDERED: Meperidine HCl/PF 25 MG/ML VIAL SLOW IVP PRN (16:15)
[2022-09-18] MEDS ORDERED: Promethazine HCl 25 MG/ML VIAL IM/IV PRN (16:15)
[2022-09-18] MEDS: Insulin Regular 300 UNITS/3 ML VIAL SC PRN ×2 (17:27→21:20)
[2022-09-18] MEDS: Famotidine 20 MG TAB PO SCH (20:05)
[2022-09-18] MEDS: CEFAZOLIN 2 GM in Sodium Chloride 0.9% 100 ML IVPB SCH (20:50)
[2022-09-18] MEDS: Acetaminophen/Codeine 30-300mg Tablet PO PRN (20:51)
[2022-09-18] MEDS: Morphine 2 MG/ML VIAL SLOW IVP PRN (21:20)
[2022-09-19] MEDS: Sodium Chloride 0.9% 1,000 ML IV SCH (04:40)
[2022-09-19] MEDS: CEFAZOLIN 2 GM in Sodium Chloride 0.9% 100 ML IVPB SCH ×2 (05:29→15:04)
[2022-09-19] MEDS: Acetaminophen 325 MG TAB PO SCH ×3 (05:30→17:07)
[2022-09-19] MEDS: Ketorolac Tromethamine 30 MG/ML VIAL IVP SCH (05:30)
[2022-09-19 06:56] LABS: Anion Gap 15 mmol/L (10-20); BUN (Urea Nitrogen) 13 mg/dL (9.8-20.1); Calc. Creatinine Clearance 64 mL/min (70-130); Calcium 8.5 mg/dL (7.8-10.44); Carbon Dioxide 17 mmol/L (23-31); Chloride 111 mmol/L (98-107); Estimated GFR 86; Glucose 155 mg/dL (83-110); Magnesium 1.8 mg/dL (1.6-2.6); Phosphorus 3.2 mg/dL (2.3-4.7); Potassium 4.5 mmol/L (3.5-5.1); Sodium 138 mmol/L (136-145)
[2022-09-19 08:59] LABS: #Basophils 0.1 thou/uL (0.0-0.2); #Monocytes 0.9 thou/uL (0.11-0.59); #Neutrophils 14.4 thou/uL (1.40-6.50); %Basophils 0.4 % (0.0-1.0); %Eosinophils 0.2 % (0.0-10.0); %Lymphocytes 7.4 % (21.0-51.0); %Neutrophils 84.2 % (42.0-75.0); Hematocrit 28.8 % (36.0-47.0); Mean Corpuscular HGB CONC 31.3 g/dL (32.0-36.0); Mean Corpuscular Hemoglobin 25.7 pg (27.0-31.0); Mean Corpuscular Volume 82.3 fl (78.0-98.0); Mean Platelet Volume 12.6 fL (7.4-10.4); Platelet Count 267 10x3/uL (130-400); RBC Distribution Width 14.7 % (11.5-14.5); White Blood Cell (WBC) Count 17.1 10x3/uL (4.8-10.8)
[2022-09-19] MEDS: Senokot S 8.6-50 MG TAB PO SCH ×2 (09:45→21:49)
[2022-09-19] MEDS: Polyethylene Glycol 3350 17 GM Packet PO SCH (09:45)
[2022-09-19] MEDS: Insulin Regular 300 UNITS/3 ML VIAL SC PRN ×3 (12:01→21:58)
[2022-09-19 18:12] LABS: #Basophils 0.1 thou/uL (0.0-0.2); #Eosinphils 0.3 thou/uL (0.0-0.7); #Monocytes 0.8 thou/uL (0.11-0.59); %Basophils 0.5 % (0.0-1.0); %Eosinophils 1.8 % (0.0-10.0); %Lymphocytes 12.5 % (21.0-51.0); %Monocytes 4.8 % (0.0-10.0); %Neutrophils 75.8 % (42.0-75.0); Hematocrit 28.2 % (36.0-47.0); Hemoglobin 8.9 g/dL (12.0-16.0); Mean Corpuscular HGB CONC 31.6 g/dL (32.0-36.0); Mean Corpuscular Hemoglobin 25.6 pg (27.0-31.0); Mean Corpuscular Volume 81.3 fl (78.0-98.0); Mean Platelet Volume 12.7 fL (7.4-10.4); Platelet Count 306 10x3/uL (130-400); RBC Distribution Width 14.8 % (11.5-14.5); Red Blood Cell (RBC) Count 3.47 mill/uL (4.20-5.40); White Blood Cell (WBC) Count 17.2 10x3/uL (4.8-10.8)
[2022-09-19 18:20] LABS: Manual Diff?? YES
[2022-09-19 19:32] LABS: Band 13 % (5-11); Eosinophils 2 % (0-10); Lymphocytes 13 % (21-51); Monocytes 3 % (0-10); Myelocyte 1 % (0-0); Neutrophil 67 % (42-75); Ovalocytes SLIGHT = 2-5 cells (100X) (0-1/hpf); Polychromasia SLIGHT = 2-3 cells (100X) (0-2/hpf); Reactive Lymphocytes 1 % (0-10)
[2022-09-19 19:34] LABS: Platelet Adequacy Comment Appears Adequate
[2022-09-19] MEDS ORDERED: Apixaban 5 MG TAB PO SCH (21:00)
[2022-09-19] MEDS: Famotidine 20 MG TAB PO SCH (21:49)
[2022-09-20] MEDS: Acetaminophen 325 MG TAB PO SCH ×3 (00:25→12:16)
[2022-09-20] MEDS: Insulin Regular 300 UNITS/3 ML VIAL SC PRN ×2 (05:40→12:22)
[2022-09-20 07:35] LABS: Hematocrit 29.2 % (36.0-47.0); Mean Corpuscular HGB CONC 30.8 g/dL (32.0-36.0); Mean Corpuscular Hemoglobin 25.5 pg (27.0-31.0); Mean Corpuscular Volume 82.7 fl (78.0-98.0); Mean Platelet Volume 12.3 fL (7.4-10.4); Platelet Count 334 10x3/uL (130-400); RBC Distribution Width 14.8 % (11.5-14.5); Red Blood Cell (RBC) Count 3.53 mill/uL (4.20-5.40)
[2022-09-20 07:37] LABS: Delete Auto Diff?? YES; Manual Diff?? YES
[2022-09-20 08:00] LABS: Band 9 % (5-11); CellaVision Operator ID lab.dlt; Eosinophils 3 % (0-10); Large Platelets 4.3 % (0-5); Lymphocytes 9 % (21-51); Metamyelocyte 1 % (0-0); Monocytes 5 % (0-10); Myelocyte 1 % (0-0); Neutrophil 72 % (42-75); Platelet Adequacy Comment Platelets Normal; Polychromasia SLIGHT = 2-3 cells HPF (0-2); Reactive Lymphocytes 1 % (0-10); Total Cell Count 117
[2022-09-20] MEDS ORDERED: Apixaban 5 MG TAB PO SCH (09:00)
[2022-09-20] MEDS: Senokot S 8.6-50 MG TAB PO SCH (09:03)
[2022-09-20] MEDS: Polyethylene Glycol 3350 17 GM Packet PO SCH (09:03)
[2022-09-20 11:52] LABS: Bilirubin Negative (Negative); Blood, Urine 3+ (Negative); CAUTI Indications for Culture Alt mental st,lethar; Clarity Clear (Clear); Glucose, Urine (Dipstick) 70 mg/dL (Negative); Ketone, Urine Negative (Negative); Leukocyte Negative Leu/uL (Negative); Nitrite Negative (Negative); Protein, Urine (Dipstick) Negative (Neg-Trace); Specific Gravity, Urine 1.006 (1.002-1.036); Squamous Epithelial None Seen HPF (0-3); Urobilinogen Normal mg/dL (Less than 2); WBC/HPF 0-3 HPF (0-3)
[2022-09-20 11:53] LABS: Bacteria/HPF Rare-Few HPF (None Seen)
[2022-09-20 11:54] LABS: Urine Culture Reflex No No
[2022-09-20] MEDS ORDERED: Cephalexin 250 MG CAP PO SCH (12:00)
[2022-09-20 12:36] VITALS: BP 153/72; TEMP 98.4
== END 2022-09-20 14:45 | DRG 482 ==
LOC: ERS 11:49 → SURG B 15:34
PROVIDERS: ADMIT Specialist; ATTEND Specialist
PROC: 0QSB04Z Reposition Right Lower Femur with Internal Fixation Device, Open Approach (ICD-10-PCS; principal; 2022-09-18)
DX: S72.451A Displaced supracondylar fracture without intracondylar extension of lower end of right femur, initial encounter for closed fracture (principal); F03.90 Unspecified dementia, unspecified severity, without behavioral disturbance, psychotic disturbance, mood disturbance, and anxiety; E11.9 Type 2 diabetes mellitus without complications; I10 Essential (primary) hypertension; W06.XXXA Fall from bed, initial encounter; I25.10 Atherosclerotic heart disease of native coronary artery without angina pectoris; Z79.01 Long term (current) use of anticoagulants; Z95.0 Presence of cardiac pacemaker; Z86.73 Personal history of transient ischemic attack (TIA), and cerebral infarction without residual deficits; Z98.890 Other specified postprocedural states; Z90.49 Acquired absence of other specified parts of digestive tract; Z88.2 Allergy status to sulfonamides; Z79.84 Long term (current) use of oral hypoglycemic drugs
CPT/HCPCS: 36415; 36416; 70450; 71045; 72125; 72170; 80048; 80053; 81001; 81003; 81015; 82553; 83735; 84100; 84484; 85025; 86850; 86870; 86900; 86901; 86922; 87040; 93005; 94760; 96374; C1713; J1100; J1815; J1885; J2272; J2405; J2704; J3010; J3370; J3370-JW; J3490; J7050

== ENCOUNTER 2022-12-05 19:02 | Inpatient (IN) | payer MEDICARE, BC ==
[2022-12-05 21:30] LABS: Bilirubin Negative (Negative); Blood, Urine 1+ (Negative); CAUTI Indications for Culture Dysuria,urgency,freq; Clarity Extra Turbid (Clear); Glucose, Urine (Dipstick) 100 mg/dL (Negative); Ketone, Urine Negative (Negative); Leukocyte 500 Leu/uL (Negative); Nitrite Negative (Negative); Protein, Urine (Dipstick) 100 mg/dL (Neg-Trace); Urobilinogen Normal mg/dL (Less than 2); pH, Urine 5.5 (5.0-9.0)
[2022-12-05 21:38] LABS: Bacteria/HPF 3+ HPF (None Seen); RBC/HPF 0-3 HPF (0-3); WBC/HPF Greater than 50 HPF (0-3); Yeast-Budding 2+ HPF (None Seen)
[2022-12-05 21:40] LABS: Urine Culture Reflex Yes Yes
[2022-12-05 22:13] LABS: #Basophils 0.1 thou/uL (0.0-0.2); #Eosinphils 0.3 thou/uL (0.0-0.7); #Monocytes 1.6 thou/uL (0.11-0.59); #Neutrophils 12.6 thou/uL (1.40-6.50); %Basophils 0.5 % (0.0-1.0); %Eosinophils 1.6 % (0.0-10.0); %Lymphocytes 17.9 % (21.0-51.0); %Monocytes 8.9 % (0.0-10.0); %Neutrophils 69.1 % (42.0-75.0); Hematocrit 37.2 % (36.0-47.0); Hemoglobin 11.6 g/dL (12.0-16.0); Mean Corpuscular HGB CONC 31.2 g/dL (32.0-36.0); Mean Corpuscular Volume 83.4 fl (78.0-98.0); Mean Platelet Volume 12.4 fL (7.4-10.4); RBC Distribution Width 15.9 % (11.5-14.5); Red Blood Cell (RBC) Count 4.46 mill/uL (4.20-5.40); White Blood Cell (WBC) Count 18.2 10x3/uL (4.8-10.8)
[2022-12-05 22:23] LABS: Platelet Count 245 10x3/uL (130-400)
[2022-12-05] MEDS ORDERED: Fluconazole 100 MG TAB ONE (22:30)
[2022-12-05] MEDS ORDERED: Piperacillin/Tazobactam 4.5 GM VIAL ONE (22:31)
[2022-12-05 22:39] LABS: ALT (SGPT) 20 U/L (8-55); AST (SGOT) 22 U/L (5-34); Alkaline Phosphatase 129 U/L (40-110); Anion Gap 14 mmol/L (10-20); BUN (Urea Nitrogen) 31 mg/dL (9.8-20.1); Bilirubin, Total 0.4 mg/dL (0.2-1.2); Calc. Creatinine Clearance 0 mL/min (70-130); Calcium 9.2 mg/dL (7.8-10.44); Carbon Dioxide 21 mmol/L (23-31); Chloride 100 mmol/L (98-107); Estimated GFR 83; Globulin 2.8 g/dL (2.4-3.5); Glucose 188 mg/dL (83-110); Potassium 4.2 mmol/L (3.5-5.1); Protein, Total 6.8 g/dL (5.8-8.1); Sodium 131 mmol/L (136-145)
[2022-12-05] MEDS ORDERED: Vancomycin (BATCH) 1.25 GM in Premix 1 BAG IVPB SCH (22:45)
[2022-12-06] MEDS ORDERED: Nystatin Powder 15 GM BOT TOP PRN (00:28)
[2022-12-06] MEDS ORDERED: Morphine 2 MG/ML VIAL SLOW IVP PRN (00:28)
[2022-12-06] MEDS ORDERED: Acetaminophen 650 MG Suppository PR PRN (00:29)
[2022-12-06] MEDS ORDERED: Dextrose 50% Abboject 50 ML SYRINGE SLOW IVP PRN (00:29)
[2022-12-06] MEDS ORDERED: HumaLOG 300 UNITS/3 ML VIAL SC PRN (00:29)
[2022-12-06] MEDS ORDERED: Ondansetron ODT 4 MG TAB PO PRN (00:29)
[2022-12-06] MEDS ORDERED: Dextrose 5% in Water 1,000 ML IV PRN (00:29)
[2022-12-06] MEDS ORDERED: Glucagon 1 MG/ML KIT IM PRN (00:29)
[2022-12-06] MEDS ORDERED: Ondansetron PF 4 MG/2 ML Vial IVP PRN (00:29)
[2022-12-06 00:31] VITALS: BMI 26.9
[2022-12-06] MEDS ORDERED: Apixaban 5 MG TAB PO SCH (01:15)
[2022-12-06] MEDS: Cefepime 1 GM in Sodium Chloride 0.9% 100 ML IVPB SCH ×2 (01:33→12:08)
[2022-12-06] MEDS: Acetaminophen 325 MG TAB PO PRN ×2 (01:33→19:48)
[2022-12-06 05:38] LABS: #Basophils 0.1 thou/uL (0.0-0.2); #Eosinphils 0.3 thou/uL (0.0-0.7); #Monocytes 1.5 thou/uL (0.11-0.59); %Basophils 0.4 % (0.0-1.0); %Eosinophils 1.4 % (0.0-10.0); %Lymphocytes 14.8 % (21.0-51.0); %Monocytes 8.3 % (0.0-10.0); %Neutrophils 73.2 % (42.0-75.0); Hematocrit 32.9 % (36.0-47.0); Hemoglobin 10.5 g/dL (12.0-16.0); Mean Corpuscular HGB CONC 31.9 g/dL (32.0-36.0); Mean Corpuscular Hemoglobin 26.1 pg (27.0-31.0); Mean Corpuscular Volume 81.8 fl (78.0-98.0); Platelet Count 234 10x3/uL (130-400); RBC Distribution Width 15.6 % (11.5-14.5); Red Blood Cell (RBC) Count 4.02 mill/uL (4.20-5.40); White Blood Cell (WBC) Count 17.8 10x3/uL (4.8-10.8)
[2022-12-06 06:03] LABS: Anion Gap 10 mmol/L (10-20); BUN (Urea Nitrogen) 20 mg/dL (9.8-20.1); Calc. Creatinine Clearance 76 mL/min (70-130); Calcium 8.8 mg/dL (7.8-10.44); Carbon Dioxide 22 mmol/L (23-31); Chloride 105 mmol/L (98-107); Estimated GFR 89; Glucose 138 mg/dL (83-110); Potassium 3.8 mmol/L (3.5-5.1); Sodium 133 mmol/L (136-145)
[2022-12-06] MEDS ORDERED: Famotidine 20 MG TAB PO SCH (09:00)
[2022-12-06] MEDS ORDERED: Vancomycin 1 GM in Premix 1 BAG IVPB SCH (09:00)
[2022-12-06] MEDS: Apixaban 5 MG TAB PO SCH ×2 (09:42→19:48)
[2022-12-06] MEDS: Fluconazole 100 MG TAB PO SCH (09:42)
[2022-12-06] MEDS: Saccharomyces boulardii 250 MG CAP PO SCH (09:42)
[2022-12-06] MEDS: Amlodipine 5 MG TAB PO SCH (19:48)
[2022-12-06] MEDS: Famotidine 20 MG TAB PO SCH (19:48)
[2022-12-06] MEDS: Atorvastatin Calcium 20 MG TAB PO SCH (19:50)
[2022-12-06] MEDS: Melatonin 3 MG TAB PO SCH (19:51)
[2022-12-06] MEDS ORDERED: Vancomycin (BATCH) 1.25 GM in Premix 1 BAG IVPB SCH (21:00)
[2022-12-07] MEDS: Cefepime 1 GM in Sodium Chloride 0.9% 100 ML IVPB SCH ×2 (00:28→14:03)
[2022-12-07] MEDS: Acetaminophen 325 MG TAB PO PRN (08:25)
[2022-12-07] MEDS: Cholecalciferol 1,000 UNITS (25 MCG) TAB PO SCH (10:35)
[2022-12-07] MEDS: Apixaban 5 MG TAB PO SCH ×2 (10:39→21:50)
[2022-12-07] MEDS: Famotidine 20 MG TAB PO SCH ×2 (10:39→21:50)
[2022-12-07] MEDS: Lisinopril 10 MG TAB PO SCH (10:39)
[2022-12-07] MEDS: Multivit, Therapeutic 1 TAB PO SCH (10:44)
[2022-12-07] MEDS: Zinc Sulfate 220 MG CAP PO SCH (10:45)
[2022-12-07] MEDS: Fluconazole 100 MG TAB PO SCH (10:45)
[2022-12-07] MEDS: Ferrous Sulfate 325 MG TAB PO SCH (10:46)
[2022-12-07] MEDS: Saccharomyces boulardii 250 MG CAP PO SCH (10:46)
[2022-12-07] MEDS: Ascorbic Acid 500 mg Chewable Tablet PO SCH (10:46)
[2022-12-07] MEDS: Empagliflozin 25 MG TAB PO SCH (10:47)
[2022-12-07 20:17] LABS: Vancomycin, Trough 9.1 ug/mL
[2022-12-07] MEDS: Melatonin 3 MG TAB PO SCH (21:51)
[2022-12-07] MEDS: Vancomycin HCl 750 MG in Sodium Chloride 0.9% 250 ML 250 ML IVPB SCH (21:51)
[2022-12-07] MEDS: Atorvastatin Calcium 20 MG TAB PO SCH (21:51)
[2022-12-07] MEDS: Amlodipine 5 MG TAB PO SCH (21:51)
[2022-12-08] MEDS: Cefepime 1 GM in Sodium Chloride 0.9% 100 ML IVPB SCH ×2 (00:02→13:08)
[2022-12-08] MEDS: HumaLOG 300 UNITS/3 ML VIAL SC PRN (06:02)
[2022-12-08] MEDS: Apixaban 5 MG TAB PO SCH ×2 (09:07→20:26)
[2022-12-08] MEDS: Cholecalciferol 1,000 UNITS (25 MCG) TAB PO SCH (09:07)
[2022-12-08] MEDS: Fluconazole 100 MG TAB PO SCH (09:07)
[2022-12-08] MEDS: Zinc Sulfate 220 MG CAP PO SCH (09:07)
[2022-12-08] MEDS: Ferrous Sulfate 325 MG TAB PO SCH (09:07)
[2022-12-08] MEDS: Saccharomyces boulardii 250 MG CAP PO SCH (09:07)
[2022-12-08] MEDS: Ascorbic Acid 500 mg Chewable Tablet PO SCH (09:07)
[2022-12-08] MEDS: Multivit, Therapeutic 1 TAB PO SCH (09:08)
[2022-12-08] MEDS: Empagliflozin 25 MG TAB PO SCH (09:08)
[2022-12-08] MEDS: Famotidine 20 MG TAB PO SCH ×2 (09:08→20:26)
[2022-12-08] MEDS: Lisinopril 10 MG TAB PO SCH (09:09)
[2022-12-08] MEDS: Vancomycin HCl 750 MG in Sodium Chloride 0.9% 250 ML 250 ML IVPB SCH ×2 (09:10→20:26)
[2022-12-08] MEDS: Melatonin 3 MG TAB PO SCH (20:25)
[2022-12-08] MEDS: Amlodipine 5 MG TAB PO SCH (20:25)
[2022-12-08] MEDS: Atorvastatin Calcium 20 MG TAB PO SCH (20:26)
[2022-12-09] MEDS: Cefepime 1 GM in Sodium Chloride 0.9% 100 ML IVPB SCH ×2 (01:27→14:02)
[2022-12-09] MEDS ORDERED: Lorazepam 2 MG/ML VIAL SLOW IVP SCH (08:45)
[2022-12-09] MEDS: Famotidine 20 MG TAB PO SCH ×2 (09:32→21:35)
[2022-12-09] MEDS: Ferrous Sulfate 325 MG TAB PO SCH (09:32)
[2022-12-09] MEDS: Saccharomyces boulardii 250 MG CAP PO SCH (09:32)
[2022-12-09] MEDS: Fluconazole 100 MG TAB PO SCH (09:32)
[2022-12-09] MEDS: Zinc Sulfate 220 MG CAP PO SCH (09:32)
[2022-12-09] MEDS: Vancomycin HCl 750 MG in Sodium Chloride 0.9% 250 ML 250 ML IVPB SCH ×3 (09:32→21:34)
[2022-12-09] MEDS: Cholecalciferol 1,000 UNITS (25 MCG) TAB PO SCH (09:32)
[2022-12-09] MEDS: Apixaban 5 MG TAB PO SCH ×2 (09:32→21:36)
[2022-12-09] MEDS: Lisinopril 10 MG TAB PO SCH (09:32)
[2022-12-09] MEDS: Multivit, Therapeutic 1 TAB PO SCH (09:32)
[2022-12-09] MEDS: Ascorbic Acid 500 mg Chewable Tablet PO SCH (09:32)
[2022-12-09] MEDS: Empagliflozin 25 MG TAB PO SCH (09:32)
[2022-12-09 10:57] LABS: Vancomycin, Trough 12.3 ug/mL
[2022-12-09] MEDS: Acetaminophen 325 MG TAB PO PRN (15:13)
[2022-12-09] MEDS: Amlodipine 5 MG TAB PO SCH (21:34)
[2022-12-09] MEDS: Atorvastatin Calcium 20 MG TAB PO SCH (21:35)
[2022-12-09] MEDS: Melatonin 3 MG TAB PO SCH (21:36)
[2022-12-10] MEDS: Cefepime 1 GM in Sodium Chloride 0.9% 100 ML IVPB SCH ×2 (01:45→12:29)
[2022-12-10 06:16] LABS: #Basophils 0.1 thou/uL (0.0-0.2); #Eosinphils 0.5 thou/uL (0.0-0.7); #Monocytes 1.2 thou/uL (0.11-0.59); #Neutrophils 12.4 thou/uL (1.40-6.50); %Basophils 0.8 % (0.0-1.0); %Eosinophils 3.1 % (0.0-10.0); %Lymphocytes 13.9 % (21.0-51.0); %Monocytes 6.9 % (0.0-10.0); %Neutrophils 74.1 % (42.0-75.0); Hematocrit 38.3 % (36.0-47.0); Hemoglobin 11.8 g/dL (12.0-16.0); Mean Corpuscular HGB CONC 30.8 g/dL (32.0-36.0); Mean Corpuscular Hemoglobin 25.8 pg (27.0-31.0); Mean Corpuscular Volume 83.6 fl (78.0-98.0); Mean Platelet Volume 11.8 fL (7.4-10.4); Platelet Count 427 10x3/uL (130-400); RBC Distribution Width 16.3 % (11.5-14.5); Red Blood Cell (RBC) Count 4.58 mill/uL (4.20-5.40); White Blood Cell (WBC) Count 16.8 10x3/uL (4.8-10.8)
[2022-12-10 06:37] LABS: Anion Gap 13 mmol/L (10-20); BUN (Urea Nitrogen) 10 mg/dL (9.8-20.1); Calc. Creatinine Clearance 76 mL/min (70-130); Calcium 9.5 mg/dL (7.8-10.44); Carbon Dioxide 25 mmol/L (23-31); Chloride 103 mmol/L (98-107); Estimated GFR 89; Glucose 133 mg/dL (83-110); Potassium 4.1 mmol/L (3.5-5.1); Sodium 137 mmol/L (136-145)
[2022-12-10] MEDS: Vancomycin HCl 750 MG in Sodium Chloride 0.9% 250 ML 250 ML IVPB SCH (08:54)
[2022-12-10] MEDS: Lisinopril 10 MG TAB PO SCH (08:54)
[2022-12-10] MEDS: Ascorbic Acid 500 mg Chewable Tablet PO SCH (08:54)
[2022-12-10] MEDS: Famotidine 20 MG TAB PO SCH ×2 (08:55→22:08)
[2022-12-10] MEDS: Fluconazole 100 MG TAB PO SCH (08:55)
[2022-12-10] MEDS: Multivit, Therapeutic 1 TAB PO SCH (08:55)
[2022-12-10] MEDS: Ferrous Sulfate 325 MG TAB PO SCH (08:55)
[2022-12-10] MEDS: Cholecalciferol 1,000 UNITS (25 MCG) TAB PO SCH (08:55)
[2022-12-10] MEDS: Zinc Sulfate 220 MG CAP PO SCH (08:55)
[2022-12-10] MEDS: Apixaban 5 MG TAB PO SCH ×2 (08:55→22:09)
[2022-12-10] MEDS: Saccharomyces boulardii 250 MG CAP PO SCH (08:55)
[2022-12-10] MEDS: Empagliflozin 25 MG TAB PO SCH (08:55)
[2022-12-10] MEDS: Acetaminophen 325 MG TAB PO PRN (18:19)
[2022-12-10] MEDS: Amlodipine 5 MG TAB PO SCH (22:08)
[2022-12-10] MEDS: Atorvastatin Calcium 20 MG TAB PO SCH (22:09)
[2022-12-10] MEDS: Melatonin 3 MG TAB PO SCH (22:09)
[2022-12-10] MEDS: CEFAZOLIN 2 GM in Sodium Chloride 0.9% 100 ML IVPB SCH (22:09)
[2022-12-11] MEDS: CEFAZOLIN 2 GM in Sodium Chloride 0.9% 100 ML IVPB SCH ×3 (05:49→21:23)
[2022-12-11] MEDS: Fluconazole 100 MG TAB PO SCH (08:20)
[2022-12-11] MEDS: Empagliflozin 25 MG TAB PO SCH (08:20)
[2022-12-11] MEDS: Apixaban 5 MG TAB PO SCH ×2 (08:20→21:22)
[2022-12-11] MEDS: Ascorbic Acid 500 mg Chewable Tablet PO SCH (08:20)
[2022-12-11] MEDS: Saccharomyces boulardii 250 MG CAP PO SCH (08:21)
[2022-12-11] MEDS: Multivit, Therapeutic 1 TAB PO SCH (08:21)
[2022-12-11] MEDS: Cholecalciferol 1,000 UNITS (25 MCG) TAB PO SCH (08:21)
[2022-12-11] MEDS: Lisinopril 10 MG TAB PO SCH (08:21)
[2022-12-11] MEDS: Zinc Sulfate 220 MG CAP PO SCH (08:21)
[2022-12-11] MEDS: Famotidine 20 MG TAB PO SCH ×2 (08:21→21:23)
[2022-12-11] MEDS: HYDROcodone/Acetaminophen 5/325 mg Tablet PO PRN ×2 (08:21→21:21)
[2022-12-11] MEDS: Ferrous Sulfate 325 MG TAB PO SCH (08:21)
[2022-12-11] MEDS: Amlodipine 5 MG TAB PO SCH (21:22)
[2022-12-11] MEDS: Atorvastatin Calcium 20 MG TAB PO SCH (21:23)
[2022-12-11] MEDS: Melatonin 3 MG TAB PO SCH (21:23)
[2022-12-12] MEDS: CEFAZOLIN 2 GM in Sodium Chloride 0.9% 100 ML IVPB SCH ×3 (06:08→20:57)
[2022-12-12 08:04] LABS: #Basophils 0.2 thou/uL (0.0-0.2); #Eosinphils 0.5 thou/uL (0.0-0.7); #Monocytes 1.3 thou/uL (0.11-0.59); #Neutrophils 14.9 thou/uL (1.40-6.50); %Basophils 0.9 % (0.0-1.0); %Eosinophils 2.5 % (0.0-10.0); %Lymphocytes 13.8 % (21.0-51.0); %Monocytes 6.6 % (0.0-10.0); %Neutrophils 75.3 % (42.0-75.0); Hematocrit 38.2 % (36.0-47.0); Hemoglobin 11.6 g/dL (12.0-16.0); Mean Corpuscular HGB CONC 30.4 g/dL (32.0-36.0); Mean Corpuscular Volume 85.7 fl (78.0-98.0); Mean Platelet Volume 11.1 fL (7.4-10.4); Platelet Count 431 10x3/uL (130-400); RBC Distribution Width 16.2 % (11.5-14.5); Red Blood Cell (RBC) Count 4.46 mill/uL (4.20-5.40); White Blood Cell (WBC) Count 19.8 10x3/uL (4.8-10.8)
[2022-12-12 08:28] LABS: Anion Gap 11 mmol/L (10-20); BUN (Urea Nitrogen) 11 mg/dL (9.8-20.1); Calc. Creatinine Clearance 67 mL/min (70-130); Calcium 9.8 mg/dL (7.8-10.44); Carbon Dioxide 25 mmol/L (23-31); Chloride 103 mmol/L (98-107); Estimated GFR 87; Glucose 131 mg/dL (83-110); Potassium 4.2 mmol/L (3.5-5.1); Sodium 135 mmol/L (136-145)
[2022-12-12] MEDS: Acetaminophen 325 MG TAB PO PRN (08:39)
[2022-12-12] MEDS: Empagliflozin 25 MG TAB PO SCH (08:40)
[2022-12-12] MEDS: Lisinopril 10 MG TAB PO SCH (08:40)
[2022-12-12] MEDS: Zinc Sulfate 220 MG CAP PO SCH (08:40)
[2022-12-12] MEDS: Saccharomyces boulardii 250 MG CAP PO SCH (08:40)
[2022-12-12] MEDS: Multivit, Therapeutic 1 TAB PO SCH (08:40)
[2022-12-12] MEDS: Ascorbic Acid 500 mg Chewable Tablet PO SCH (08:41)
[2022-12-12] MEDS: Cholecalciferol 1,000 UNITS (25 MCG) TAB PO SCH (08:41)
[2022-12-12] MEDS: Apixaban 5 MG TAB PO SCH ×2 (08:41→20:00)
[2022-12-12] MEDS: Fluconazole 100 MG TAB PO SCH (08:41)
[2022-12-12] MEDS: Ferrous Sulfate 325 MG TAB PO SCH (08:41)
[2022-12-12] MEDS: Famotidine 20 MG TAB PO SCH ×2 (08:42→20:00)
[2022-12-12] MEDS: HumaLOG 300 UNITS/3 ML VIAL SC PRN (17:52)
[2022-12-12] MEDS: Melatonin 3 MG TAB PO SCH (20:00)
[2022-12-12] MEDS: Atorvastatin Calcium 20 MG TAB PO SCH (20:00)
[2022-12-12] MEDS: Amlodipine 5 MG TAB PO SCH (20:00)
[2022-12-13] MEDS: CEFAZOLIN 2 GM in Sodium Chloride 0.9% 100 ML IVPB SCH ×2 (05:02→14:16)
[2022-12-13 08:24] VITALS: TEMP 98.5
[2022-12-13] MEDS: Cholecalciferol 1,000 UNITS (25 MCG) TAB PO SCH (08:27)
[2022-12-13] MEDS: Acetaminophen 325 MG TAB PO PRN ×3 (08:29→18:00)
[2022-12-13] MEDS: Ferrous Sulfate 325 MG TAB PO SCH (08:30)
[2022-12-13] MEDS: Ascorbic Acid 500 mg Chewable Tablet PO SCH (08:30)
[2022-12-13] MEDS: Saccharomyces boulardii 250 MG CAP PO SCH (08:30)
[2022-12-13] MEDS: Famotidine 20 MG TAB PO SCH (08:30)
[2022-12-13] MEDS: Lisinopril 10 MG TAB PO SCH (08:30)
[2022-12-13] MEDS: Fluconazole 100 MG TAB PO SCH (08:30)
[2022-12-13] MEDS: Empagliflozin 25 MG TAB PO SCH (08:31)
[2022-12-13] MEDS: Apixaban 5 MG TAB PO SCH (08:31)
[2022-12-13] MEDS: Multivit, Therapeutic 1 TAB PO SCH (08:31)
[2022-12-13] MEDS: Zinc Sulfate 220 MG CAP PO SCH (08:31)
[2022-12-13] MEDS: HumaLOG 300 UNITS/3 ML VIAL SC PRN (17:54)
[2022-12-13 18:07] VITALS: BP 131/71
== END 2022-12-13 19:30 | DRG 690 ==
LOC: ERS 19:02 → T4-B 22:52 → OBSVTOIN 12-06 12:57
PROVIDERS: ADMIT Student in an Organized Health Care Education/Training Program; ATTEND Internal Medicine
PROC: 0T9B70Z Drainage of Bladder with Drainage Device, Via Natural or Artificial Opening (ICD-10-PCS; principal; 2022-12-06)
PROC: 3E04329 Introduction of Other Anti-infective into Central Vein, Percutaneous Approach (ICD-10-PCS; 2022-12-06)
PROC: 02HV33Z Insertion of Infusion Device into Superior Vena Cava, Percutaneous Approach (ICD-10-PCS; 2022-12-11)
PROC: B5181ZA Fluoroscopy of Superior Vena Cava using Low Osmolar Contrast, Guidance (ICD-10-PCS; 2022-12-11)
PROC: B548ZZA Ultrasonography of Superior Vena Cava, Guidance (ICD-10-PCS; 2022-12-11)
DX: N39.0 Urinary tract infection, site not specified (principal); L97.919 Non-pressure chronic ulcer of unspecified part of right lower leg with unspecified severity; M86.161 Other acute osteomyelitis, right tibia and fibula; E78.5 Hyperlipidemia, unspecified; E11.9 Type 2 diabetes mellitus without complications; I25.10 Atherosclerotic heart disease of native coronary artery without angina pectoris; Z95.0 Presence of cardiac pacemaker; Z86.73 Personal history of transient ischemic attack (TIA), and cerebral infarction without residual deficits; Z88.2 Allergy status to sulfonamides; Z79.899 Other long term (current) drug therapy; Z79.01 Long term (current) use of anticoagulants; Z90.49 Acquired absence of other specified parts of digestive tract; Z98.890 Other specified postprocedural states; E11.622 Type 2 diabetes mellitus with other skin ulcer; Z79.4 Long term (current) use of insulin; E11.69 Type 2 diabetes mellitus with other specified complication; M60.9 Myositis, unspecified; D72.829 Elevated white blood cell count, unspecified
CPT/HCPCS: 36415; 36416; 36569; 51701; 80048; 80053; 80202; 81001; 82565; 83605; 85025; 86140; 87040; 87077; 87086; 87186; 93005; 96365; 96367; 96374; 96375; 96376; 97139; C1751; G0378; J0692; J1815; J2060; J2272; J2543; J3370; J3490; J7050

== ENCOUNTER 2022-12-21 15:59 | Inpatient (IN) | payer MEDICARE, BC ==
[2022-12-21 16:29] LABS: #Basophils 0.2 thou/uL (0.0-0.2); #Eosinphils 0.3 thou/uL (0.0-0.7); #Monocytes 1.5 thou/uL (0.11-0.59); #Neutrophils 13.6 thou/uL (1.40-6.50); %Basophils 0.9 % (0.0-1.0); %Eosinophils 1.8 % (0.0-10.0); %Lymphocytes 12.6 % (21.0-51.0); %Monocytes 8.2 % (0.0-10.0); %Neutrophils 75.3 % (42.0-75.0); Hematocrit 35.3 % (36.0-47.0); Hemoglobin 11.1 g/dL (12.0-16.0); Mean Corpuscular HGB CONC 31.4 g/dL (32.0-36.0); Mean Corpuscular Hemoglobin 25.8 pg (27.0-31.0); Mean Corpuscular Volume 82.1 fl (78.0-98.0); Mean Platelet Volume 11.5 fL (7.4-10.4); Platelet Count 271 10x3/uL (130-400); RBC Distribution Width 15.4 % (11.5-14.5)
[2022-12-21 16:49] LABS: INR-International Normal Ratio 1.4; Prothrombin Time 18.2 sec (12.0-14.7)
[2022-12-21 16:50] LABS: PTT 46.7 sec (22.9-36.1)
[2022-12-21 16:51] LABS: ALT (SGPT) 7 U/L (8-55); AST (SGOT) 22 U/L (5-34); Albumin 3.9 g/dL (3.4-4.8); Alkaline Phosphatase 119 U/L (40-110); Anion Gap 13 mmol/L (10-20); BUN (Urea Nitrogen) 21 mg/dL (9.8-20.1); Bilirubin, Total 0.3 mg/dL (0.2-1.2); Calc. Creatinine Clearance 0 mL/min (70-130); Calcium 9.4 mg/dL (7.8-10.44); Carbon Dioxide 22 mmol/L (23-31); Chloride 101 mmol/L (98-107); Estimated GFR 79; Globulin 2.8 g/dL (2.4-3.5); Glucose 296 mg/dL (83-110); Potassium 4.3 mmol/L (3.5-5.1); Protein, Total 6.7 g/dL (5.8-8.1); Sodium 132 mmol/L (136-145)
[2022-12-21] MEDS ORDERED: Sodium Chloride 0.9% 100 ML ONE (17:34)
[2022-12-21] MEDS ORDERED: Cefepime 2 GM VIAL ONE (17:34)
[2022-12-21] MEDS ORDERED: Vancomycin (BATCH) 1.25 GM in Premix 1 BAG IVPB SCH (18:00)
[2022-12-21] MEDS ORDERED: Ondansetron PF 4 MG/2 ML Vial IVP PRN (19:06)
[2022-12-21] MEDS ORDERED: Acetaminophen 650 MG Suppository PR PRN (19:06)
[2022-12-21] MEDS ORDERED: Ondansetron ODT 4 MG TAB PO PRN (19:06)
[2022-12-21 19:22] LABS: Bacteria/HPF None Seen HPF (None Seen); Bilirubin Negative (Negative); Blood, Urine 1+ (Negative); CAUTI Indications for Culture Dysuria,urgency,freq; Clarity Extra Turbid (Clear); Glucose, Urine (Dipstick) >=1000 mg/dL (Negative); Ketone, Urine Negative (Negative); Leukocyte 500 Leu/uL (Negative); Nitrite Negative (Negative); Protein, Urine (Dipstick) 50 mg/dL (Neg-Trace); Squamous Epithelial 0-3 HPF (0-3); Urobilinogen Normal mg/dL (Less than 2); WBC/HPF Greater than 50 HPF (0-3); Yeast-Budding 1+ HPF (None Seen)
[2022-12-21 19:30] LABS: Urine Culture Reflex Yes Yes
[2022-12-21 19:32] LABS: Lactic Acid 1.7 mmol/L (0.5-2.2)
[2022-12-21] MEDS ORDERED: Dextrose 50% Abboject 50 ML SYRINGE SLOW IVP PRN (20:25)
[2022-12-21] MEDS ORDERED: Dextrose 5% in Water 1,000 ML IV PRN (20:25)
[2022-12-21] MEDS ORDERED: Glucagon 1 MG/ML KIT IM PRN (20:25)
[2022-12-21] MEDS ORDERED: HumaLOG 300 UNITS/3 ML VIAL SC PRN (20:25)
[2022-12-21 21:47] VITALS: BMI 24.5
[2022-12-21] MEDS: Sodium Chloride 0.9% 1,000 ML IV SCH (21:52)
[2022-12-21] MEDS: Acetaminophen 325 MG TAB PO PRN (22:06)
[2022-12-22] MEDS ORDERED: Cefepime 2 GM in Sodium Chloride 0.9% 100 ML IVPB SCH (05:00)
[2022-12-22] MEDS: Sodium Chloride 0.9% 1,000 ML IV SCH (05:35)
[2022-12-22] MEDS ORDERED: Vancomycin (BATCH) 1.25 GM in Premix 1 BAG IVPB SCH (06:00)
[2022-12-22 06:30] LABS: #Basophils 0.1 thou/uL (0.0-0.2); #Eosinphils 0.4 thou/uL (0.0-0.7); #Monocytes 1.1 thou/uL (0.11-0.59); %Basophils 0.9 % (0.0-1.0); %Lymphocytes 14.7 % (21.0-51.0); %Monocytes 7.7 % (0.0-10.0); %Neutrophils 72.6 % (42.0-75.0); Hematocrit 33.3 % (36.0-47.0); Hemoglobin 10.2 g/dL (12.0-16.0); Mean Corpuscular HGB CONC 30.6 g/dL (32.0-36.0); Mean Corpuscular Hemoglobin 26.2 pg (27.0-31.0); Platelet Count 202 10x3/uL (130-400); RBC Distribution Width 15.6 % (11.5-14.5); White Blood Cell (WBC) Count 13.8 10x3/uL (4.8-10.8)
[2022-12-22 06:38] LABS: Mean Corpuscular Volume 85.4 fl (78.0-98.0)
[2022-12-22 06:52] LABS: Anion Gap 13 mmol/L (10-20); BUN (Urea Nitrogen) 11 mg/dL (9.8-20.1); Calc. Creatinine Clearance 80 mL/min (70-130); Calcium 8.5 mg/dL (7.8-10.44); Carbon Dioxide 20 mmol/L (23-31); Estimated GFR 93; Glucose 105 mg/dL (83-110)
[2022-12-22 06:57] LABS: Chloride 107 mmol/L (98-107); Potassium 3.8 mmol/L (3.5-5.1); Sodium 136 mmol/L (136-145)
[2022-12-22] MEDS: Morphine 2 MG/ML VIAL SLOW IVP PRN ×2 (10:40→18:52)
[2022-12-22] MEDS ORDERED: Nystatin Powder 15 GM BOT TOP PRN (13:46)
[2022-12-22] MEDS ORDERED: Aspirin 81 mg Enteric Coated Tablet PO SCH (17:30)
[2022-12-22] MEDS: HumaLOG 300 UNITS/3 ML VIAL SC SCH (17:33)
[2022-12-22] MEDS ORDERED: Vancomycin 1 GM in Premix 1 BAG IVPB SCH (18:00)
[2022-12-22] MEDS: Cefepime 1 GM in Sodium Chloride 0.9% 100 ML IVPB SCH (18:07)
[2022-12-22] MEDS: Lactated Ringer's 1,000 ML IV SCH (18:57)
[2022-12-22] MEDS: Ascorbic Acid 500 mg Chewable Tablet PO SCH (20:55)
[2022-12-22] MEDS: Amlodipine 5 MG TAB PO SCH (20:56)
[2022-12-22] MEDS: Melatonin 3 MG TAB PO SCH (20:56)
[2022-12-22] MEDS: Atorvastatin Calcium 20 MG TAB PO SCH (20:56)
[2022-12-22] MEDS ORDERED: AMINO ACIDS PO SCH (21:00)
[2022-12-22] MEDS ORDERED: [UNRECOGNIZED DRUG - OTHER] PO SCH (21:00)
[2022-12-22] MEDS ORDERED: PROTEIN HYDROLYS PO SCH (21:00)
[2022-12-23] MEDS: Cefepime 1 GM in Sodium Chloride 0.9% 100 ML IVPB SCH ×2 (04:47→17:46)
[2022-12-23] MEDS: Morphine 2 MG/ML VIAL SLOW IVP PRN ×2 (08:07→11:29)
[2022-12-23] MEDS ORDERED: Aspirin 81 mg Enteric Coated Tablet PO SCH (09:00)
[2022-12-23] MEDS ORDERED: Iopamidol 370 76% 100 ML VIAL ONE (10:00)
[2022-12-23] MEDS: Ascorbic Acid 500 mg Chewable Tablet PO SCH ×2 (10:17→20:21)
[2022-12-23] MEDS: Ferrous Sulfate 325 MG TAB PO SCH (10:17)
[2022-12-23] MEDS: Cholecalciferol 1,000 UNITS (25 MCG) TAB PO SCH (10:17)
[2022-12-23] MEDS: Multivitamin W/ Minerals 1 TAB PO SCH (10:18)
[2022-12-23] MEDS: Lisinopril 10 MG TAB PO SCH (10:18)
[2022-12-23] MEDS: Empagliflozin 25 MG TAB PO SCH (10:18)
[2022-12-23] MEDS: Saccharomyces boulardii 250 MG CAP PO SCH (10:19)
[2022-12-23] MEDS: Insulin Glargine 30 UNITS/0.3 ML VIAL SC SCH (10:20)
[2022-12-23 11:01] LABS: Hemoglobin A1c 7.2 % (4.0-6.0)
[2022-12-23 11:18] LABS: Anion Gap 11 mmol/L (10-20); BUN (Urea Nitrogen) 10 mg/dL (9.8-20.1); Calc. Creatinine Clearance 77 mL/min (70-130); Calcium 9.4 mg/dL (7.8-10.44); Carbon Dioxide 23 mmol/L (23-31); Chloride 104 mmol/L (98-107); Estimated GFR 92; Glucose 118 mg/dL (83-110); Potassium 3.8 mmol/L (3.5-5.1); Sodium 134 mmol/L (136-145)
[2022-12-23] MEDS ORDERED: Heparin 10,000 UNITS/ 10 ML VIAL ONE (12:02)
[2022-12-23] MEDS ORDERED: Lidocaine 1% (PF) 30 ML VIAL ONE (12:02)
[2022-12-23] MEDS ORDERED: Clopidogrel Bisulfate 300 MG TAB ONE (14:04)
[2022-12-23] MEDS ORDERED: Protamine Sulfate 50 MG/5 ML VIAL ONE (14:04)
[2022-12-23] MEDS ORDERED: Clopidogrel Bisulfate 75 MG TAB PO SCH (16:00)
[2022-12-23] MEDS ORDERED: Sodium Chloride 0.9% 100 ML ONE (17:23)
[2022-12-23] MEDS: HumaLOG 300 UNITS/3 ML VIAL SC SCH (18:43)
[2022-12-23] MEDS: Lactated Ringer's 1,000 ML IV SCH (18:43)
[2022-12-23 19:36] LABS: Vancomycin, Trough 2.1 ug/mL
[2022-12-23] MEDS: Atorvastatin Calcium 20 MG TAB PO SCH (20:13)
[2022-12-23] MEDS: Amlodipine 5 MG TAB PO SCH (20:13)
[2022-12-23] MEDS: Apixaban 2.5 MG TAB PO SCH (20:13)
[2022-12-23] MEDS: Melatonin 3 MG TAB PO SCH (20:14)
[2022-12-23] MEDS: CEFAZOLIN 2 GM in Sodium Chloride 0.9% 100 ML IVPB SCH (21:33)
[2022-12-24] MEDS: Lactated Ringer's 1,000 ML IV SCH ×2 (04:29→10:00)
[2022-12-24 04:45] LABS: #Basophils 0.1 thou/uL (0.0-0.2); #Eosinphils 0.3 thou/uL (0.0-0.7); #Neutrophils 9.5 thou/uL (1.40-6.50); %Basophils 0.8 % (0.0-1.0); %Eosinophils 2.6 % (0.0-10.0); %Lymphocytes 15.9 % (21.0-51.0); %Monocytes 7.9 % (0.0-10.0); %Neutrophils 71.7 % (42.0-75.0); Hematocrit 30.7 % (36.0-47.0); Hemoglobin 9.6 g/dL (12.0-16.0); Mean Corpuscular HGB CONC 31.3 g/dL (32.0-36.0); Mean Corpuscular Hemoglobin 26.2 pg (27.0-31.0); Mean Corpuscular Volume 83.9 fl (78.0-98.0); Mean Platelet Volume 11.8 fL (7.4-10.4); Platelet Count 254 10x3/uL (130-400); RBC Distribution Width 15.6 % (11.5-14.5); Red Blood Cell (RBC) Count 3.66 mill/uL (4.20-5.40); White Blood Cell (WBC) Count 13.2 10x3/uL (4.8-10.8)
[2022-12-24] MEDS: CEFAZOLIN 2 GM in Sodium Chloride 0.9% 100 ML IVPB SCH ×3 (05:00→22:11)
[2022-12-24 05:10] LABS: Anion Gap 15 mmol/L (10-20); BUN (Urea Nitrogen) 13 mg/dL (9.8-20.1); Calc. Creatinine Clearance 72 mL/min (70-130); Calcium 8.9 mg/dL (7.8-10.44); Carbon Dioxide 20 mmol/L (23-31); Chloride 105 mmol/L (98-107); Estimated GFR 90; Glucose 96 mg/dL (83-110); Potassium 3.8 mmol/L (3.5-5.1); Sodium 136 mmol/L (136-145)
[2022-12-24] MEDS: Lisinopril 10 MG TAB PO SCH (09:19)
[2022-12-24] MEDS: Saccharomyces boulardii 250 MG CAP PO SCH (09:19)
[2022-12-24] MEDS: Ferrous Sulfate 325 MG TAB PO SCH (09:19)
[2022-12-24] MEDS: Clopidogrel Bisulfate 75 MG TAB PO SCH (09:19)
[2022-12-24] MEDS: Multivitamin W/ Minerals 1 TAB PO SCH (09:19)
[2022-12-24] MEDS: Cholecalciferol 1,000 UNITS (25 MCG) TAB PO SCH (09:19)
[2022-12-24] MEDS: Apixaban 2.5 MG TAB PO SCH ×2 (09:19→20:12)
[2022-12-24] MEDS: Empagliflozin 25 MG TAB PO SCH (09:19)
[2022-12-24] MEDS: Ascorbic Acid 500 mg Chewable Tablet PO SCH ×2 (10:18→20:14)
[2022-12-24] MEDS: Insulin Glargine 30 UNITS/0.3 ML VIAL SC SCH (10:18)
[2022-12-24] MEDS: HumaLOG 300 UNITS/3 ML VIAL SC SCH (18:11)
[2022-12-24] MEDS: Melatonin 3 MG TAB PO SCH (20:11)
[2022-12-24] MEDS: Atorvastatin Calcium 20 MG TAB PO SCH (20:11)
[2022-12-24] MEDS: Acetaminophen 325 MG TAB PO PRN (20:11)
[2022-12-24] MEDS: Amlodipine 5 MG TAB PO SCH (20:12)
[2022-12-25] MEDS: Lactated Ringer's 1,000 ML IV SCH (04:16)
[2022-12-25] MEDS: CEFAZOLIN 2 GM in Sodium Chloride 0.9% 100 ML IVPB SCH ×3 (06:25→20:36)
[2022-12-25 07:53] LABS: #Basophils 0.1 thou/uL (0.0-0.2); #Eosinphils 0.4 thou/uL (0.0-0.7); #Neutrophils 7.9 thou/uL (1.40-6.50); %Basophils 1.1 % (0.0-1.0); %Eosinophils 3.1 % (0.0-10.0); %Lymphocytes 16.8 % (21.0-51.0); %Monocytes 8.8 % (0.0-10.0); %Neutrophils 68.8 % (42.0-75.0); Hematocrit 34.5 % (36.0-47.0); Hemoglobin 10.5 g/dL (12.0-16.0); Mean Corpuscular HGB CONC 30.4 g/dL (32.0-36.0); Mean Corpuscular Hemoglobin 25.9 pg (27.0-31.0); Mean Platelet Volume 12.2 fL (7.4-10.4); Platelet Count 263 10x3/uL (130-400); RBC Distribution Width 15.5 % (11.5-14.5); Red Blood Cell (RBC) Count 4.06 mill/uL (4.20-5.40); White Blood Cell (WBC) Count 11.5 10x3/uL (4.8-10.8)
[2022-12-25 08:21] LABS: Anion Gap 15 mmol/L (10-20); BUN (Urea Nitrogen) 10 mg/dL (9.8-20.1); CRP (Inflammatory) 5.95 mg/dL (= or < 0.5); Calc. Creatinine Clearance 72 mL/min (70-130); Carbon Dioxide 21 mmol/L (23-31); Chloride 106 mmol/L (98-107); Estimated GFR 90; Glucose 130 mg/dL (83-110); Potassium 3.6 mmol/L (3.5-5.1); Sodium 138 mmol/L (136-145)
[2022-12-25] MEDS: Multivitamin W/ Minerals 1 TAB PO SCH (08:28)
[2022-12-25] MEDS: Saccharomyces boulardii 250 MG CAP PO SCH (08:28)
[2022-12-25] MEDS: Ferrous Sulfate 325 MG TAB PO SCH (08:29)
[2022-12-25] MEDS: Cholecalciferol 1,000 UNITS (25 MCG) TAB PO SCH ×2 (08:29→08:32)
[2022-12-25] MEDS: Empagliflozin 25 MG TAB PO SCH (08:30)
[2022-12-25] MEDS: Clopidogrel Bisulfate 75 MG TAB PO SCH (08:30)
[2022-12-25] MEDS: Lisinopril 10 MG TAB PO SCH (08:30)
[2022-12-25] MEDS: Apixaban 2.5 MG TAB PO SCH ×2 (08:30→20:37)
[2022-12-25] MEDS: Insulin Glargine 30 UNITS/0.3 ML VIAL SC SCH (08:31)
[2022-12-25] MEDS: Ascorbic Acid 500 mg Chewable Tablet PO SCH ×2 (08:35→21:16)
[2022-12-25] MEDS: HumaLOG 300 UNITS/3 ML VIAL SC PRN ×2 (13:48→18:38)
[2022-12-25] MEDS: HumaLOG 300 UNITS/3 ML VIAL SC SCH (18:38)
[2022-12-25] MEDS: Amlodipine 5 MG TAB PO SCH (20:37)
[2022-12-25] MEDS: Melatonin 3 MG TAB PO SCH (20:37)
[2022-12-25] MEDS: Atorvastatin Calcium 20 MG TAB PO SCH (20:37)
[2022-12-26] MEDS: CEFAZOLIN 2 GM in Sodium Chloride 0.9% 100 ML IVPB SCH ×3 (05:16→21:09)
[2022-12-26] MEDS: Cholecalciferol 1,000 UNITS (25 MCG) TAB PO SCH (08:23)
[2022-12-26] MEDS: Insulin Glargine 30 UNITS/0.3 ML VIAL SC SCH (08:23)
[2022-12-26] MEDS: Ferrous Sulfate 325 MG TAB PO SCH (08:23)
[2022-12-26] MEDS: Empagliflozin 25 MG TAB PO SCH (08:23)
[2022-12-26] MEDS: Multivitamin W/ Minerals 1 TAB PO SCH (08:23)
[2022-12-26] MEDS: Clopidogrel Bisulfate 75 MG TAB PO SCH (08:23)
[2022-12-26] MEDS: Saccharomyces boulardii 250 MG CAP PO SCH (08:23)
[2022-12-26] MEDS: Apixaban 2.5 MG TAB PO SCH ×2 (08:23→21:09)
[2022-12-26] MEDS: Lisinopril 10 MG TAB PO SCH (08:24)
[2022-12-26] MEDS: Ascorbic Acid 500 mg Chewable Tablet PO SCH ×2 (08:46→21:12)
[2022-12-26] MEDS: HumaLOG 300 UNITS/3 ML VIAL SC SCH (17:33)
[2022-12-26] MEDS: Amlodipine 5 MG TAB PO SCH (21:09)
[2022-12-26] MEDS: Atorvastatin Calcium 20 MG TAB PO SCH (21:09)
[2022-12-26] MEDS: Melatonin 3 MG TAB PO SCH (21:10)
[2022-12-26] MEDS: Acetaminophen 325 MG TAB PO PRN (21:22)
[2022-12-27] MEDS: CEFAZOLIN 2 GM in Sodium Chloride 0.9% 100 ML IVPB SCH ×3 (05:20→20:53)
[2022-12-27] MEDS: Lisinopril 10 MG TAB PO SCH (08:04)
[2022-12-27] MEDS: Empagliflozin 25 MG TAB PO SCH (08:04)
[2022-12-27] MEDS: Clopidogrel Bisulfate 75 MG TAB PO SCH (08:04)
[2022-12-27] MEDS: Cholecalciferol 1,000 UNITS (25 MCG) TAB PO SCH (08:04)
[2022-12-27] MEDS: Apixaban 2.5 MG TAB PO SCH ×2 (08:04→20:51)
[2022-12-27] MEDS: Saccharomyces boulardii 250 MG CAP PO SCH (08:04)
[2022-12-27] MEDS: Insulin Glargine 30 UNITS/0.3 ML VIAL SC SCH (08:04)
[2022-12-27] MEDS: Multivitamin W/ Minerals 1 TAB PO SCH (08:05)
[2022-12-27] MEDS: Ascorbic Acid 500 mg Chewable Tablet PO SCH ×2 (08:05→20:57)
[2022-12-27] MEDS: Ferrous Sulfate 325 MG TAB PO SCH (08:05)
[2022-12-27] MEDS: Morphine 2 MG/ML VIAL SLOW IVP PRN ×3 (10:35→16:33)
[2022-12-27] MEDS: HYDROcodone/Acetaminophen 5/325 mg Tablet PO PRN ×2 (11:37→15:28)
[2022-12-27] MEDS: HumaLOG 300 UNITS/3 ML VIAL SC PRN ×2 (12:21→17:22)
[2022-12-27] MEDS: HumaLOG 300 UNITS/3 ML VIAL SC SCH (17:21)
[2022-12-27] MEDS: Melatonin 3 MG TAB PO SCH (20:51)
[2022-12-27] MEDS: Acetaminophen 325 MG TAB PO PRN (20:51)
[2022-12-27] MEDS: Atorvastatin Calcium 20 MG TAB PO SCH (20:51)
[2022-12-27] MEDS: Amlodipine 5 MG TAB PO SCH (20:52)
[2022-12-28] MEDS: CEFAZOLIN 2 GM in Sodium Chloride 0.9% 100 ML IVPB SCH ×3 (05:21→21:21)
[2022-12-28] MEDS: Empagliflozin 25 MG TAB PO SCH (08:15)
[2022-12-28] MEDS: Clopidogrel Bisulfate 75 MG TAB PO SCH (08:15)
[2022-12-28] MEDS: Cholecalciferol 1,000 UNITS (25 MCG) TAB PO SCH (08:15)
[2022-12-28] MEDS: Lisinopril 10 MG TAB PO SCH (08:15)
[2022-12-28] MEDS: Multivitamin W/ Minerals 1 TAB PO SCH (08:15)
[2022-12-28] MEDS: Saccharomyces boulardii 250 MG CAP PO SCH (08:15)
[2022-12-28] MEDS: Ferrous Sulfate 325 MG TAB PO SCH (08:15)
[2022-12-28] MEDS: Insulin Glargine 30 UNITS/0.3 ML VIAL SC SCH (08:16)
[2022-12-28] MEDS: Apixaban 2.5 MG TAB PO SCH ×2 (08:16→21:20)
[2022-12-28] MEDS: Ascorbic Acid 500 mg Chewable Tablet PO SCH ×2 (08:18→21:24)
[2022-12-28] MEDS: Morphine 2 MG/ML VIAL SLOW IVP PRN (09:16)
[2022-12-28] MEDS: HumaLOG 300 UNITS/3 ML VIAL SC SCH (16:23)
[2022-12-28] MEDS: Amlodipine 5 MG TAB PO SCH (21:20)
[2022-12-28] MEDS: Melatonin 3 MG TAB PO SCH (21:20)
[2022-12-28] MEDS: Atorvastatin Calcium 20 MG TAB PO SCH (21:21)
[2022-12-29] MEDS: CEFAZOLIN 2 GM in Sodium Chloride 0.9% 100 ML IVPB SCH ×3 (05:40→21:39)
[2022-12-29] MEDS: Clopidogrel Bisulfate 75 MG TAB PO SCH (08:46)
[2022-12-29] MEDS: Insulin Glargine 30 UNITS/0.3 ML VIAL SC SCH (08:46)
[2022-12-29] MEDS: Cholecalciferol 1,000 UNITS (25 MCG) TAB PO SCH (08:46)
[2022-12-29] MEDS: Ferrous Sulfate 325 MG TAB PO SCH (08:46)
[2022-12-29] MEDS: Lisinopril 10 MG TAB PO SCH (08:47)
[2022-12-29] MEDS: Multivitamin W/ Minerals 1 TAB PO SCH (08:47)
[2022-12-29] MEDS: Apixaban 2.5 MG TAB PO SCH ×2 (08:47→20:55)
[2022-12-29] MEDS: Saccharomyces boulardii 250 MG CAP PO SCH (08:47)
[2022-12-29] MEDS: Ascorbic Acid 500 mg Chewable Tablet PO SCH ×2 (08:47→20:59)
[2022-12-29] MEDS: Empagliflozin 25 MG TAB PO SCH (08:47)
[2022-12-29] MEDS: Morphine 2 MG/ML VIAL SLOW IVP PRN (10:25)
[2022-12-29] MEDS: HumaLOG 300 UNITS/3 ML VIAL SC SCH (16:46)
[2022-12-29] MEDS: Melatonin 3 MG TAB PO SCH (20:55)
[2022-12-29] MEDS: Amlodipine 5 MG TAB PO SCH (20:56)
[2022-12-29] MEDS: Atorvastatin Calcium 20 MG TAB PO SCH (20:56)
[2022-12-30] MEDS: CEFAZOLIN 2 GM in Sodium Chloride 0.9% 100 ML IVPB SCH ×3 (05:59→21:38)
[2022-12-30] MEDS: Ferrous Sulfate 325 MG TAB PO SCH (08:08)
[2022-12-30] MEDS: Multivitamin W/ Minerals 1 TAB PO SCH (08:08)
[2022-12-30] MEDS: Clopidogrel Bisulfate 75 MG TAB PO SCH (08:08)
[2022-12-30] MEDS: Saccharomyces boulardii 250 MG CAP PO SCH (08:08)
[2022-12-30] MEDS: Empagliflozin 25 MG TAB PO SCH (08:09)
[2022-12-30] MEDS: Apixaban 2.5 MG TAB PO SCH ×2 (08:09→20:44)
[2022-12-30] MEDS: Insulin Glargine 30 UNITS/0.3 ML VIAL SC SCH (08:09)
[2022-12-30] MEDS: Lisinopril 10 MG TAB PO SCH (08:09)
[2022-12-30] MEDS: Cholecalciferol 1,000 UNITS (25 MCG) TAB PO SCH (08:09)
[2022-12-30] MEDS: Ascorbic Acid 500 mg Chewable Tablet PO SCH ×2 (08:21→20:44)
[2022-12-30] MEDS: HumaLOG 300 UNITS/3 ML VIAL SC SCH (16:51)
[2022-12-30] MEDS: Atorvastatin Calcium 20 MG TAB PO SCH (20:44)
[2022-12-30] MEDS: Amlodipine 5 MG TAB PO SCH (20:44)
[2022-12-30] MEDS: Melatonin 3 MG TAB PO SCH (20:45)
[2022-12-31] MEDS: CEFAZOLIN 2 GM in Sodium Chloride 0.9% 100 ML IVPB SCH (06:25)
[2022-12-31] MEDS: Cholecalciferol 1,000 UNITS (25 MCG) TAB PO SCH (08:32)
[2022-12-31] MEDS: Ascorbic Acid 500 mg Chewable Tablet PO SCH ×2 (08:32→20:46)
[2022-12-31] MEDS: Saccharomyces boulardii 250 MG CAP PO SCH (08:32)
[2022-12-31] MEDS: Empagliflozin 25 MG TAB PO SCH (08:33)
[2022-12-31] MEDS: Apixaban 2.5 MG TAB PO SCH ×2 (08:33→20:47)
[2022-12-31] MEDS: Lisinopril 10 MG TAB PO SCH (08:33)
[2022-12-31] MEDS: Multivitamin W/ Minerals 1 TAB PO SCH (08:33)
[2022-12-31] MEDS: Clopidogrel Bisulfate 75 MG TAB PO SCH (08:33)
[2022-12-31] MEDS: Ferrous Sulfate 325 MG TAB PO SCH (08:33)
[2022-12-31] MEDS: Insulin Glargine 30 UNITS/0.3 ML VIAL SC SCH (08:33)
[2022-12-31] MEDS: Morphine 2 MG/ML VIAL SLOW IVP PRN (10:54)
[2022-12-31] MEDS ORDERED: Piperacillin/Tazobactam 4.5 GM in Sodium Chloride 0.9% 100 ML IVPB SCH (14:30)
[2022-12-31] MEDS: HumaLOG 300 UNITS/3 ML VIAL SC SCH (16:37)
[2022-12-31] MEDS: Acetaminophen 325 MG TAB PO PRN (20:47)
[2022-12-31] MEDS: Melatonin 3 MG TAB PO SCH (20:47)
[2022-12-31] MEDS: Amlodipine 5 MG TAB PO SCH (20:47)
[2022-12-31] MEDS: Atorvastatin Calcium 20 MG TAB PO SCH (20:47)
[2022-12-31] MEDS: Piperacillin/Tazobactam 4.5 GM in Sodium Chloride 0.9% 100 ML IVPB SCH (21:36)
[2023-01-01] MEDS: Piperacillin/Tazobactam 4.5 GM in Sodium Chloride 0.9% 100 ML IVPB SCH ×3 (05:22→21:16)
[2023-01-01 05:48] LABS: #Basophils 0.1 thou/uL (0.0-0.2); #Eosinphils 0.5 thou/uL (0.0-0.7); #Monocytes 1.3 thou/uL (0.11-0.59); %Basophils 0.7 % (0.0-1.0); %Eosinophils 3.7 % (0.0-10.0); %Monocytes 9.7 % (0.0-10.0); %Neutrophils 66.7 % (42.0-75.0); Hematocrit 29.7 % (36.0-47.0); Hemoglobin 9.2 g/dL (12.0-16.0); Mean Corpuscular Hemoglobin 26.3 pg (27.0-31.0); Mean Corpuscular Volume 84.9 fl (78.0-98.0); Mean Platelet Volume 11.4 fL (7.4-10.4); Platelet Count 360 10x3/uL (130-400); RBC Distribution Width 15.6 % (11.5-14.5); White Blood Cell (WBC) Count 13.4 10x3/uL (4.8-10.8)
[2023-01-01 06:24] LABS: Anion Gap 12 mmol/L (10-20); BUN (Urea Nitrogen) 31 mg/dL (9.8-20.1); Calc. Creatinine Clearance 63 mL/min (70-130); Calcium 8.8 mg/dL (7.8-10.44); Carbon Dioxide 25 mmol/L (23-31); Chloride 103 mmol/L (98-107); Estimated GFR 87; Glucose 92 mg/dL (83-110); Sodium 136 mmol/L (136-145)
[2023-01-01] MEDS: Ferrous Sulfate 325 MG TAB PO SCH (08:13)
[2023-01-01] MEDS: Multivitamin W/ Minerals 1 TAB PO SCH (08:13)
[2023-01-01] MEDS: Cholecalciferol 1,000 UNITS (25 MCG) TAB PO SCH (08:13)
[2023-01-01] MEDS: Ascorbic Acid 500 mg Chewable Tablet PO SCH ×2 (08:13→21:16)
[2023-01-01] MEDS: Clopidogrel Bisulfate 75 MG TAB PO SCH (08:14)
[2023-01-01] MEDS: Empagliflozin 25 MG TAB PO SCH (08:14)
[2023-01-01] MEDS: Lisinopril 10 MG TAB PO SCH (08:14)
[2023-01-01] MEDS: Apixaban 2.5 MG TAB PO SCH ×2 (08:14→21:16)
[2023-01-01] MEDS: Saccharomyces boulardii 250 MG CAP PO SCH (08:14)
[2023-01-01] MEDS: Insulin Glargine 30 UNITS/0.3 ML VIAL SC SCH (08:14)
[2023-01-01] MEDS: HumaLOG 300 UNITS/3 ML VIAL SC SCH (17:09)
[2023-01-01] MEDS: Amlodipine 5 MG TAB PO SCH (21:17)
[2023-01-01] MEDS: Melatonin 3 MG TAB PO SCH (21:17)
[2023-01-01] MEDS: Atorvastatin Calcium 20 MG TAB PO SCH (21:17)
[2023-01-02] MEDS: Piperacillin/Tazobactam 4.5 GM in Sodium Chloride 0.9% 100 ML IVPB SCH ×2 (05:07→14:22)
[2023-01-02 05:14] LABS: #Basophils 0.1 thou/uL (0.0-0.2); #Eosinphils 0.6 thou/uL (0.0-0.7); #Monocytes 1.1 thou/uL (0.11-0.59); #Neutrophils 9.6 thou/uL (1.40-6.50); %Basophils 0.9 % (0.0-1.0); %Eosinophils 4.2 % (0.0-10.0); %Monocytes 7.7 % (0.0-10.0); %Neutrophils 68.3 % (42.0-75.0); Hematocrit 28.8 % (36.0-47.0); Hemoglobin 8.9 g/dL (12.0-16.0); Mean Corpuscular HGB CONC 30.9 g/dL (32.0-36.0); Mean Corpuscular Hemoglobin 25.9 pg (27.0-31.0); Mean Platelet Volume 11.4 fL (7.4-10.4); Platelet Count 359 10x3/uL (130-400); RBC Distribution Width 15.4 % (11.5-14.5); Red Blood Cell (RBC) Count 3.43 mill/uL (4.20-5.40)
[2023-01-02 05:37] LABS: Anion Gap 12 mmol/L (10-20); BUN (Urea Nitrogen) 24 mg/dL (9.8-20.1); Calc. Creatinine Clearance 61 mL/min (70-130); Calcium 8.8 mg/dL (7.8-10.44); Carbon Dioxide 25 mmol/L (23-31); Chloride 106 mmol/L (98-107); Estimated GFR 86; Glucose 107 mg/dL (83-110); Potassium 3.9 mmol/L (3.5-5.1); Sodium 139 mmol/L (136-145)
[2023-01-02] MEDS: Cholecalciferol 1,000 UNITS (25 MCG) TAB PO SCH (08:34)
[2023-01-02] MEDS: Clopidogrel Bisulfate 75 MG TAB PO SCH (08:34)
[2023-01-02] MEDS: Multivitamin W/ Minerals 1 TAB PO SCH (08:34)
[2023-01-02] MEDS: Ferrous Sulfate 325 MG TAB PO SCH (08:34)
[2023-01-02] MEDS: Lisinopril 10 MG TAB PO SCH (08:35)
[2023-01-02] MEDS: Apixaban 2.5 MG TAB PO SCH ×2 (08:35→22:10)
[2023-01-02] MEDS: Empagliflozin 25 MG TAB PO SCH (08:35)
[2023-01-02] MEDS: Saccharomyces boulardii 250 MG CAP PO SCH (08:35)
[2023-01-02] MEDS: Insulin Glargine 30 UNITS/0.3 ML VIAL SC SCH (08:35)
[2023-01-02] MEDS: Ascorbic Acid 500 mg Chewable Tablet PO SCH ×2 (08:46→22:15)
[2023-01-02] MEDS: Acetaminophen 325 MG TAB PO PRN (14:22)
[2023-01-02] MEDS ORDERED: Meropenem 1 GM in Sodium Chloride 0.9% 100 ML IVPB SCH (15:15)
[2023-01-02] MEDS: HumaLOG 300 UNITS/3 ML VIAL SC PRN (18:01)
[2023-01-02] MEDS: HumaLOG 300 UNITS/3 ML VIAL SC SCH (18:01)
[2023-01-02] MEDS: Meropenem 1 GM in Sodium Chloride 0.9% 100 ML IVPB SCH (22:10)
[2023-01-02] MEDS: Melatonin 3 MG TAB PO SCH (22:10)
[2023-01-02] MEDS: Atorvastatin Calcium 20 MG TAB PO SCH (22:10)
[2023-01-02] MEDS: Amlodipine 5 MG TAB PO SCH (22:10)
[2023-01-03 05:30] LABS: #Basophils 0.1 thou/uL (0.0-0.2); #Eosinphils 0.8 thou/uL (0.0-0.7); %Eosinophils 6.5 % (0.0-10.0); %Lymphocytes 22.8 % (21.0-51.0); %Monocytes 8.3 % (0.0-10.0); %Neutrophils 60.4 % (42.0-75.0); Hematocrit 31.1 % (36.0-47.0); Hemoglobin 9.7 g/dL (12.0-16.0); Mean Corpuscular HGB CONC 31.2 g/dL (32.0-36.0); Mean Corpuscular Hemoglobin 26.3 pg (27.0-31.0); Mean Corpuscular Volume 84.3 fl (78.0-98.0); Mean Platelet Volume 11.8 fL (7.4-10.4); Platelet Count 381 10x3/uL (130-400); RBC Distribution Width 15.1 % (11.5-14.5); Red Blood Cell (RBC) Count 3.69 mill/uL (4.20-5.40); White Blood Cell (WBC) Count 11.5 10x3/uL (4.8-10.8)
[2023-01-03 05:59] LABS: Anion Gap 12 mmol/L (10-20); BUN (Urea Nitrogen) 28 mg/dL (9.8-20.1); Calc. Creatinine Clearance 76 mL/min (70-130); Calcium 9.3 mg/dL (7.8-10.44); Carbon Dioxide 24 mmol/L (23-31); Chloride 105 mmol/L (98-107); Estimated GFR 91; Glucose 87 mg/dL (83-110); Potassium 4.1 mmol/L (3.5-5.1); Sodium 137 mmol/L (136-145)
[2023-01-03] MEDS: Meropenem 1 GM in Sodium Chloride 0.9% 100 ML IVPB SCH ×3 (05:59→20:46)
[2023-01-03] MEDS: Acetaminophen 325 MG TAB PO PRN (08:42)
[2023-01-03] MEDS: Lisinopril 10 MG TAB PO SCH (08:42)
[2023-01-03] MEDS: Cholecalciferol 1,000 UNITS (25 MCG) TAB PO SCH (08:42)
[2023-01-03] MEDS: Ferrous Sulfate 325 MG TAB PO SCH (08:42)
[2023-01-03] MEDS: Ascorbic Acid 500 mg Chewable Tablet PO SCH ×2 (08:42→19:49)
[2023-01-03] MEDS: Multivitamin W/ Minerals 1 TAB PO SCH (08:42)
[2023-01-03] MEDS: Saccharomyces boulardii 250 MG CAP PO SCH (08:42)
[2023-01-03] MEDS: Empagliflozin 25 MG TAB PO SCH (08:42)
[2023-01-03] MEDS: Clopidogrel Bisulfate 75 MG TAB PO SCH (08:42)
[2023-01-03] MEDS: Insulin Glargine 30 UNITS/0.3 ML VIAL SC SCH (08:42)
[2023-01-03] MEDS: Apixaban 2.5 MG TAB PO SCH ×2 (08:42→19:49)
[2023-01-03] MEDS: HumaLOG 300 UNITS/3 ML VIAL SC SCH (17:45)
[2023-01-03] MEDS: Melatonin 3 MG TAB PO SCH (19:48)
[2023-01-03] MEDS: Amlodipine 5 MG TAB PO SCH (19:48)
[2023-01-03] MEDS: Atorvastatin Calcium 20 MG TAB PO SCH (19:49)
[2023-01-03] MEDS: HYDROcodone/Acetaminophen 5/325 mg Tablet PO PRN (19:52)
[2023-01-04] MEDS: Meropenem 1 GM in Sodium Chloride 0.9% 100 ML IVPB SCH ×3 (05:07→21:12)
[2023-01-04 06:05] LABS: #Basophils 0.2 thou/uL (0.0-0.2); #Eosinphils 0.7 thou/uL (0.0-0.7); #Monocytes 0.8 thou/uL (0.11-0.59); #Neutrophils 7.3 thou/uL (1.40-6.50); %Basophils 1.4 % (0.0-1.0); %Eosinophils 6.2 % (0.0-10.0); %Lymphocytes 21.2 % (21.0-51.0); %Monocytes 6.9 % (0.0-10.0); %Neutrophils 63.5 % (42.0-75.0); Hematocrit 36.7 % (36.0-47.0); Hemoglobin 11.1 g/dL (12.0-16.0); Mean Corpuscular HGB CONC 30.2 g/dL (32.0-36.0); Mean Corpuscular Hemoglobin 25.8 pg (27.0-31.0); Mean Corpuscular Volume 85.2 fl (78.0-98.0); Mean Platelet Volume 11.8 fL (7.4-10.4); Platelet Count 428 10x3/uL (130-400); RBC Distribution Width 14.9 % (11.5-14.5); Red Blood Cell (RBC) Count 4.31 mill/uL (4.20-5.40); White Blood Cell (WBC) Count 11.5 10x3/uL (4.8-10.8)
[2023-01-04 06:33] LABS: Anion Gap 15 mmol/L (10-20); BUN (Urea Nitrogen) 17 mg/dL (9.8-20.1); Calc. Creatinine Clearance 68 mL/min (70-130); Calcium 9.4 mg/dL (7.8-10.44); Carbon Dioxide 23 mmol/L (23-31); Chloride 104 mmol/L (98-107); Estimated GFR 89; Glucose 101 mg/dL (83-110); Potassium 4.7 mmol/L (3.5-5.1); Sodium 137 mmol/L (136-145)
[2023-01-04] MEDS: Apixaban 2.5 MG TAB PO SCH ×2 (08:40→21:12)
[2023-01-04] MEDS: Clopidogrel Bisulfate 75 MG TAB PO SCH (08:40)
[2023-01-04] MEDS: Cholecalciferol 1,000 UNITS (25 MCG) TAB PO SCH (08:40)
[2023-01-04] MEDS: Empagliflozin 25 MG TAB PO SCH (08:40)
[2023-01-04] MEDS: Multivitamin W/ Minerals 1 TAB PO SCH (08:40)
[2023-01-04] MEDS: Ferrous Sulfate 325 MG TAB PO SCH (08:40)
[2023-01-04] MEDS: Lisinopril 10 MG TAB PO SCH (08:40)
[2023-01-04] MEDS: Ascorbic Acid 500 mg Chewable Tablet PO SCH ×2 (08:40→21:12)
[2023-01-04] MEDS: Saccharomyces boulardii 250 MG CAP PO SCH (08:40)
[2023-01-04] MEDS: Insulin Glargine 30 UNITS/0.3 ML VIAL SC SCH (08:41)
[2023-01-04] MEDS: HYDROcodone/Acetaminophen 5/325 mg Tablet PO PRN ×2 (08:50→18:27)
[2023-01-04] MEDS: HumaLOG 300 UNITS/3 ML VIAL SC PRN (12:41)
[2023-01-04] MEDS: HumaLOG 300 UNITS/3 ML VIAL SC SCH (17:57)
[2023-01-04] MEDS: Melatonin 3 MG TAB PO SCH (21:12)
[2023-01-04] MEDS: Amlodipine 5 MG TAB PO SCH (21:12)
[2023-01-04] MEDS: Atorvastatin Calcium 20 MG TAB PO SCH (21:12)
[2023-01-05] MEDS: Meropenem 1 GM in Sodium Chloride 0.9% 100 ML IVPB SCH ×3 (06:16→20:25)
[2023-01-05 06:38] LABS: #Basophils 0.1 thou/uL (0.0-0.2); #Eosinphils 0.8 thou/uL (0.0-0.7); #Monocytes 0.8 thou/uL (0.11-0.59); %Basophils 1.2 % (0.0-1.0); %Eosinophils 6.8 % (0.0-10.0); %Lymphocytes 23.4 % (21.0-51.0); %Monocytes 6.7 % (0.0-10.0); %Neutrophils 61.1 % (42.0-75.0); Hematocrit 33.6 % (36.0-47.0); Hemoglobin 10.4 g/dL (12.0-16.0); Mean Corpuscular Hemoglobin 26.1 pg (27.0-31.0); Mean Corpuscular Volume 84.4 fl (78.0-98.0); Mean Platelet Volume 11.5 fL (7.4-10.4); Platelet Count 441 10x3/uL (130-400); RBC Distribution Width 14.9 % (11.5-14.5); Red Blood Cell (RBC) Count 3.98 mill/uL (4.20-5.40); White Blood Cell (WBC) Count 11.4 10x3/uL (4.8-10.8)
[2023-01-05 07:08] LABS: Anion Gap 12 mmol/L (10-20); BUN (Urea Nitrogen) 24 mg/dL (9.8-20.1); Calc. Creatinine Clearance 67 mL/min (70-130); Calcium 9.4 mg/dL (7.8-10.44); Carbon Dioxide 25 mmol/L (23-31); Chloride 103 mmol/L (98-107); Estimated GFR 88; Glucose 107 mg/dL (83-110); Potassium 4.3 mmol/L (3.5-5.1); Sodium 136 mmol/L (136-145)
[2023-01-05] MEDS: Clopidogrel Bisulfate 75 MG TAB PO SCH (09:26)
[2023-01-05] MEDS: Apixaban 2.5 MG TAB PO SCH ×2 (09:26→20:25)
[2023-01-05] MEDS: Cholecalciferol 1,000 UNITS (25 MCG) TAB PO SCH (09:26)
[2023-01-05] MEDS: Insulin Glargine 30 UNITS/0.3 ML VIAL SC SCH (09:26)
[2023-01-05] MEDS: Multivitamin W/ Minerals 1 TAB PO SCH (09:26)
[2023-01-05] MEDS: Ferrous Sulfate 325 MG TAB PO SCH (09:26)
[2023-01-05] MEDS: Ascorbic Acid 500 mg Chewable Tablet PO SCH ×2 (09:26→20:27)
[2023-01-05] MEDS: Empagliflozin 25 MG TAB PO SCH (09:26)
[2023-01-05] MEDS: Lisinopril 10 MG TAB PO SCH (09:26)
[2023-01-05] MEDS: Saccharomyces boulardii 250 MG CAP PO SCH (09:26)
[2023-01-05] MEDS: HYDROcodone/Acetaminophen 5/325 mg Tablet PO PRN (09:41)
[2023-01-05] MEDS: HumaLOG 300 UNITS/3 ML VIAL SC SCH (16:51)
[2023-01-05] MEDS: Amlodipine 5 MG TAB PO SCH (20:22)
[2023-01-05] MEDS: Atorvastatin Calcium 20 MG TAB PO SCH (20:25)
[2023-01-05] MEDS: Melatonin 3 MG TAB PO SCH (20:25)
[2023-01-06 05:06] LABS: #Basophils 0.1 thou/uL (0.0-0.2); #Eosinphils 0.7 thou/uL (0.0-0.7); #Monocytes 0.9 thou/uL (0.11-0.59); #Neutrophils 8.5 thou/uL (1.40-6.50); %Basophils 1.1 % (0.0-1.0); %Eosinophils 5.1 % (0.0-10.0); %Lymphocytes 20.3 % (21.0-51.0); %Monocytes 6.7 % (0.0-10.0); Hematocrit 32.2 % (36.0-47.0); Hemoglobin 10.2 g/dL (12.0-16.0); Mean Corpuscular HGB CONC 31.7 g/dL (32.0-36.0); Mean Corpuscular Hemoglobin 26.6 pg (27.0-31.0); Mean Corpuscular Volume 83.9 fl (78.0-98.0); Mean Platelet Volume 11.3 fL (7.4-10.4); Platelet Count 457 10x3/uL (130-400); RBC Distribution Width 14.9 % (11.5-14.5); Red Blood Cell (RBC) Count 3.84 mill/uL (4.20-5.40); White Blood Cell (WBC) Count 12.9 10x3/uL (4.8-10.8)
[2023-01-06] MEDS: Meropenem 1 GM in Sodium Chloride 0.9% 100 ML IVPB SCH ×3 (06:29→20:45)
[2023-01-06 06:44] LABS: Anion Gap 10 mmol/L (10-20); BUN (Urea Nitrogen) 27 mg/dL (9.8-20.1); Calc. Creatinine Clearance 69 mL/min (70-130); Calcium 9.3 mg/dL (7.8-10.44); Carbon Dioxide 26 mmol/L (23-31); Chloride 103 mmol/L (98-107); Estimated GFR 89; Glucose 91 mg/dL (83-110); Sodium 135 mmol/L (136-145)
[2023-01-06] MEDS: Lisinopril 10 MG TAB PO SCH (08:49)
[2023-01-06] MEDS: Ferrous Sulfate 325 MG TAB PO SCH (08:49)
[2023-01-06] MEDS: Empagliflozin 25 MG TAB PO SCH (08:49)
[2023-01-06] MEDS: Cholecalciferol 1,000 UNITS (25 MCG) TAB PO SCH (08:49)
[2023-01-06] MEDS: Apixaban 2.5 MG TAB PO SCH ×2 (08:49→20:42)
[2023-01-06] MEDS: Clopidogrel Bisulfate 75 MG TAB PO SCH (08:49)
[2023-01-06] MEDS: Ascorbic Acid 500 mg Chewable Tablet PO SCH ×2 (08:49→20:42)
[2023-01-06] MEDS: Multivitamin W/ Minerals 1 TAB PO SCH (08:50)
[2023-01-06] MEDS: Saccharomyces boulardii 250 MG CAP PO SCH (08:50)
[2023-01-06] MEDS: Insulin Glargine 30 UNITS/0.3 ML VIAL SC SCH (08:50)
[2023-01-06] MEDS: HumaLOG 300 UNITS/3 ML VIAL SC SCH (17:15)
[2023-01-06] MEDS: Atorvastatin Calcium 20 MG TAB PO SCH (20:41)
[2023-01-06] MEDS: Melatonin 3 MG TAB PO SCH (20:41)
[2023-01-06] MEDS: Amlodipine 5 MG TAB PO SCH (20:42)
[2023-01-06] MEDS: Acetaminophen 325 MG TAB PO PRN (20:45)
[2023-01-07] MEDS: Meropenem 1 GM in Sodium Chloride 0.9% 100 ML IVPB SCH ×3 (05:56→20:49)
[2023-01-07 06:39] LABS: Anion Gap 11 mmol/L (10-20); BUN (Urea Nitrogen) 32 mg/dL (9.8-20.1); Calc. Creatinine Clearance 67 mL/min (70-130); Calcium 9.2 mg/dL (7.8-10.44); Carbon Dioxide 24 mmol/L (23-31); Chloride 105 mmol/L (98-107); Estimated GFR 88; Glucose 129 mg/dL (83-110); Sodium 136 mmol/L (136-145)
[2023-01-07 07:12] LABS: #Basophils 0.1 thou/uL (0.0-0.2); #Eosinphils 0.6 thou/uL (0.0-0.7); #Monocytes 0.9 thou/uL (0.11-0.59); #Neutrophils 7.7 thou/uL (1.40-6.50); %Basophils 1.1 % (0.0-1.0); %Eosinophils 4.8 % (0.0-10.0); %Lymphocytes 21.1 % (21.0-51.0); %Monocytes 7.4 % (0.0-10.0); %Neutrophils 64.7 % (42.0-75.0); Hematocrit 32.5 % (36.0-47.0); Hemoglobin 9.9 g/dL (12.0-16.0); Mean Corpuscular HGB CONC 30.5 g/dL (32.0-36.0); Mean Corpuscular Hemoglobin 25.6 pg (27.0-31.0); Mean Platelet Volume 11.7 fL (7.4-10.4); Platelet Count 407 10x3/uL (130-400); RBC Distribution Width 14.9 % (11.5-14.5); Red Blood Cell (RBC) Count 3.87 mill/uL (4.20-5.40); White Blood Cell (WBC) Count 11.9 10x3/uL (4.8-10.8)
[2023-01-07] MEDS: Insulin Glargine 30 UNITS/0.3 ML VIAL SC SCH (08:58)
[2023-01-07] MEDS: Apixaban 2.5 MG TAB PO SCH ×2 (08:58→20:46)
[2023-01-07] MEDS: Ferrous Sulfate 325 MG TAB PO SCH (08:58)
[2023-01-07] MEDS: Ascorbic Acid 500 mg Chewable Tablet PO SCH ×2 (08:58→20:47)
[2023-01-07] MEDS: Empagliflozin 25 MG TAB PO SCH (08:58)
[2023-01-07] MEDS: Lisinopril 10 MG TAB PO SCH (08:58)
[2023-01-07] MEDS: Multivitamin W/ Minerals 1 TAB PO SCH (08:58)
[2023-01-07] MEDS: Cholecalciferol 1,000 UNITS (25 MCG) TAB PO SCH (08:58)
[2023-01-07] MEDS: Saccharomyces boulardii 250 MG CAP PO SCH (08:58)
[2023-01-07] MEDS: Clopidogrel Bisulfate 75 MG TAB PO SCH (08:58)
[2023-01-07] MEDS: Morphine 2 MG/ML VIAL SLOW IVP PRN (14:30)
[2023-01-07] MEDS: HumaLOG 300 UNITS/3 ML VIAL SC PRN (18:14)
[2023-01-07] MEDS: HumaLOG 300 UNITS/3 ML VIAL SC SCH (18:14)
[2023-01-07] MEDS: Melatonin 3 MG TAB PO SCH (20:46)
[2023-01-07] MEDS: Atorvastatin Calcium 20 MG TAB PO SCH (20:46)
[2023-01-07] MEDS: Amlodipine 5 MG TAB PO SCH (20:46)
[2023-01-07] MEDS: Acetaminophen 325 MG TAB PO PRN (20:47)
[2023-01-08] MEDS: Meropenem 1 GM in Sodium Chloride 0.9% 100 ML IVPB SCH ×2 (05:48→12:03)
[2023-01-08 06:09] LABS: #Basophils 0.2 thou/uL (0.0-0.2); #Eosinphils 0.8 thou/uL (0.0-0.7); #Monocytes 1.1 thou/uL (0.11-0.59); #Neutrophils 8.3 thou/uL (1.40-6.50); %Basophils 1.1 % (0.0-1.0); %Lymphocytes 23.8 % (21.0-51.0); %Monocytes 7.6 % (0.0-10.0); %Neutrophils 60.5 % (42.0-75.0); Hematocrit 36.6 % (36.0-47.0); Hemoglobin 11.1 g/dL (12.0-16.0); Mean Corpuscular HGB CONC 30.3 g/dL (32.0-36.0); Mean Corpuscular Hemoglobin 25.7 pg (27.0-31.0); Mean Corpuscular Volume 84.7 fl (78.0-98.0); Mean Platelet Volume 11.3 fL (7.4-10.4); Platelet Count 452 10x3/uL (130-400); RBC Distribution Width 15.1 % (11.5-14.5); Red Blood Cell (RBC) Count 4.32 mill/uL (4.20-5.40); White Blood Cell (WBC) Count 13.7 10x3/uL (4.8-10.8)
[2023-01-08 06:48] LABS: Anion Gap 14 mmol/L (10-20); BUN (Urea Nitrogen) 25 mg/dL (9.8-20.1); Calc. Creatinine Clearance 73 mL/min (70-130); Calcium 9.3 mg/dL (7.8-10.44); Carbon Dioxide 22 mmol/L (23-31); Chloride 105 mmol/L (98-107); Estimated GFR 90; Glucose 72 mg/dL (83-110); Potassium 4.4 mmol/L (3.5-5.1); Sodium 137 mmol/L (136-145)
[2023-01-08 08:24] VITALS: TEMP 97.8
[2023-01-08] MEDS: Empagliflozin 25 MG TAB PO SCH (08:50)
[2023-01-08] MEDS: Ferrous Sulfate 325 MG TAB PO SCH (08:50)
[2023-01-08] MEDS: Saccharomyces boulardii 250 MG CAP PO SCH (08:50)
[2023-01-08 08:51] VITALS: BP 123/70
[2023-01-08] MEDS: Apixaban 2.5 MG TAB PO SCH (08:51)
[2023-01-08] MEDS: Clopidogrel Bisulfate 75 MG TAB PO SCH (08:51)
[2023-01-08] MEDS: Cholecalciferol 1,000 UNITS (25 MCG) TAB PO SCH (08:51)
[2023-01-08] MEDS: Lisinopril 10 MG TAB PO SCH (08:51)
[2023-01-08] MEDS: Multivitamin W/ Minerals 1 TAB PO SCH (08:51)
[2023-01-08] MEDS: Insulin Glargine 30 UNITS/0.3 ML VIAL SC SCH (08:53)
[2023-01-08] MEDS: Ascorbic Acid 500 mg Chewable Tablet PO SCH (08:56)
== END 2023-01-08 15:19 | disposition home health service (06) | DRG 252 ==
LOC: ERS 15:59 → T4-B 18:38
PROVIDERS: ADMIT Student in an Organized Health Care Education/Training Program; ATTEND Hospitalist
PROC: 047K3Z1 Dilation of Right Femoral Artery using Drug-Coated Balloon, Percutaneous Approach (ICD-10-PCS; principal; 2022-12-23)
PROC: 047M34Z Dilation of Right Popliteal Artery with Drug-eluting Intraluminal Device, Percutaneous Approach (ICD-10-PCS; 2022-12-23)
PROC: B4101ZZ Fluoroscopy of Abdominal Aorta using Low Osmolar Contrast (ICD-10-PCS; 2022-12-23)
DX: E11.51 Type 2 diabetes mellitus with diabetic peripheral angiopathy without gangrene (principal); A41.9 Sepsis, unspecified organism; E87.1 Hypo-osmolality and hyponatremia; I50.42 Chronic combined systolic (congestive) and diastolic (congestive) heart failure; N39.0 Urinary tract infection, site not specified; M86.161 Other acute osteomyelitis, right tibia and fibula; L03.115 Cellulitis of right lower limb; E11.621 Type 2 diabetes mellitus with foot ulcer; G30.9 Alzheimer's disease, unspecified; F02.80 Dementia in other diseases classified elsewhere, unspecified severity, without behavioral disturbance, psychotic disturbance, mood disturbance, and anxiety; L97.519 Non-pressure chronic ulcer of other part of right foot with unspecified severity; Z66 Do not resuscitate; E78.5 Hyperlipidemia, unspecified; L89.619 Pressure ulcer of right heel, unspecified stage; M60.9 Myositis, unspecified; F41.9 Anxiety disorder, unspecified; I11.0 Hypertensive heart disease with heart failure; Z90.89 Acquired absence of other organs; Z82.49 Family history of ischemic heart disease and other diseases of the circulatory system; Z86.73 Personal history of transient ischemic attack (TIA), and cerebral infarction without residual deficits; Z83.3 Family history of diabetes mellitus; Z88.2 Allergy status to sulfonamides; Z88.8 Allergy status to other drugs, medicaments and biological substances; Z79.899 Other long term (current) drug therapy; Z79.4 Long term (current) use of insulin; Z90.49 Acquired absence of other specified parts of digestive tract; Z98.890 Other specified postprocedural states; Z95.0 Presence of cardiac pacemaker
CPT/HCPCS: 36415; 36416; 37226; 51701; 75635; 75710; 80048; 80053; 80202; 81001; 83036; 83605; 85025; 85347; 85610; 85730; 86140; 87040; 87070; 87077; 87086; 87186; 87205; 96365; 96367; 97139; C1725; C1769; C1874; C1887; C1894; C2623; J0692; J1644; J1815; J2001; J2185; J2272; J2543; J2720; J3370; J3490; J7050; J7120; Q9967

== ENCOUNTER 2023-02-12 14:57 | Inpatient (IN) | payer MEDICARE, BC ==
[~2023-02-12 14:57] MED LIST: Iopamidol-370 76% 500 ML MDV (1 ML CHARGE) ONE
[2023-02-12 16:23] LABS: #Basophils 0.1 thou/uL (0.0-0.2); #Eosinphils 0.6 thou/uL (0.0-0.7); #Monocytes 1.2 thou/uL (0.11-0.59); #Neutrophils 7.9 thou/uL (1.40-6.50); %Basophils 0.8 % (0.0-1.0); %Eosinophils 4.6 % (0.0-10.0); %Lymphocytes 16.6 % (21.0-51.0); %Monocytes 10.2 % (0.0-10.0); %Neutrophils 67.2 % (42.0-75.0); Hemoglobin 12.8 g/dL (12.0-16.0); Mean Corpuscular HGB CONC 32.8 g/dL (32.0-36.0); Mean Corpuscular Hemoglobin 26.8 pg (27.0-31.0); Mean Corpuscular Volume 81.6 fl (78.0-98.0); Mean Platelet Volume 11.5 fL (7.4-10.4); Platelet Count 304 10x3/uL (130-400); RBC Distribution Width 15.9 % (11.5-14.5); Red Blood Cell (RBC) Count 4.78 mill/uL (4.20-5.40); White Blood Cell (WBC) Count 11.8 10x3/uL (4.8-10.8)
[2023-02-12 16:33] LABS: INR-International Normal Ratio 1.3
[2023-02-12 16:34] LABS: PTT 42.1 sec (22.9-36.1)
[2023-02-12 16:47] LABS: ALT (SGPT) 12 U/L (8-55); AST (SGOT) 28 U/L (5-34); Albumin 3.3 g/dL (3.4-4.8); Alkaline Phosphatase 107 U/L (40-110); Anion Gap 12 mmol/L (10-20); BUN (Urea Nitrogen) 22 mg/dL (9.8-20.1); Bilirubin, Total 0.8 mg/dL (0.2-1.2); Calc. Creatinine Clearance 0 mL/min (70-130); Calcium 9.2 mg/dL (7.8-10.44); Carbon Dioxide 25 mmol/L (23-31); Chloride 100 mmol/L (98-107); Estimated GFR 78; Globulin 3.2 g/dL (2.4-3.5); Glucose 160 mg/dL (83-110); Potassium 4.1 mmol/L (3.5-5.1); Protein, Total 6.5 g/dL (5.8-8.1); Sodium 133 mmol/L (136-145)
[2023-02-12] MEDS ORDERED: Heparin 5,000 UNITS/ML VIAL ONE ×2 (16:47→17:26)
[2023-02-12] MEDS ORDERED: EPINEPHrine 1 MG/ML VIAL ONE (17:26)
[2023-02-12] MEDS ORDERED: Bupivacaine PF 0.5% 30 ML VIAL ONE (17:26)
[2023-02-12] MEDS ORDERED: Etomidate 40 MG (20 mL) VIAL ONE ×2 (17:34→17:35)
[2023-02-12] MEDS ORDERED: Succinylcholine 200 MG/10 ml SYRINGE FS ONE (17:35)
[2023-02-12] MEDS ORDERED: Rocuronium Bromide 10 MG/ML (10ML VIAL) ONE (17:35)
[2023-02-12] MEDS ORDERED: fentaNYL 50 mcg/mL 1 mL Vial ONE ×3 (17:54→19:04)
[2023-02-12] MEDS ORDERED: CEFAZOLIN 1 GM VIAL ONE (18:06)
[2023-02-12] MEDS ORDERED: Heparin 10,000 UNITS/ 10 ML VIAL ONE (18:14)
[2023-02-12] MEDS ORDERED: PHENYLEPHRINE-NS 100 MCG/ML 10 ML SYRINGE ONE (18:25)
[2023-02-12] MEDS ORDERED: Ondansetron PF 4 MG/2 ML Vial ONE (18:29)
[2023-02-12] MEDS ORDERED: Protamine Sulfate 50 MG/5 ML VIAL ONE (18:37)
[2023-02-12] MEDS ORDERED: SUGAMMADEX SODIUM 200 MG/2 ML VIAL ONE (18:42)
[2023-02-12] MEDS ORDERED: Ondansetron HCl/PF 4 MG/2 ML Vial IVP PRN (19:21)
[2023-02-12] MEDS ORDERED: Insulin Regular 300 UNITS/3 ML VIAL SC PRN (19:53)
[2023-02-12] MEDS ORDERED: Acetaminophen 325 MG TAB PO PRN (19:53)
[2023-02-12] MEDS ORDERED: traMADol HCl 50 MG TAB PO PRN (19:53)
[2023-02-12] MEDS ORDERED: Lactated Ringer's 1,000 ML IV SCH (19:53)
[2023-02-12] MEDS ORDERED: Ondansetron PF 4 MG/2 ML Vial IVP PRN (19:53)
[2023-02-12] MEDS ORDERED: Dextrose 50% Abboject 50 ML SYRINGE SLOW IVP PRN (19:53)
[2023-02-12] MEDS ORDERED: Glucagon 1 MG/ML KIT IM PRN (19:53)
[2023-02-12] MEDS ORDERED: Dextrose 5% in Water 1,000 ML IV PRN (19:53)
[2023-02-12 22:20] VITALS: BMI 26.9
[2023-02-13] MEDS ORDERED: Melatonin 3 MG TAB PO PRN (00:15)
[2023-02-13] MEDS: CEFAZOLIN 2 GM in Sodium Chloride 0.9% 100 ML IVPB SCH ×3 (01:47→16:44)
[2023-02-13] MEDS ORDERED: CEFAZOLIN 2 GM in Sodium Chloride 0.9% 100 ML IVPB SCH (02:00)
[2023-02-13 05:10] LABS: #Basophils 0.1 thou/uL (0.0-0.2); #Eosinphils 0.7 thou/uL (0.0-0.7); #Monocytes 1.4 thou/uL (0.11-0.59); #Neutrophils 8.8 thou/uL (1.40-6.50); %Eosinophils 5.4 % (0.0-10.0); %Lymphocytes 16.3 % (21.0-51.0); %Monocytes 10.6 % (0.0-10.0); Hematocrit 37.5 % (36.0-47.0); Mean Corpuscular Hemoglobin 26.6 pg (27.0-31.0); Mean Corpuscular Volume 83.1 fl (78.0-98.0); Mean Platelet Volume 11.8 fL (7.4-10.4); Platelet Count 291 10x3/uL (130-400); Red Blood Cell (RBC) Count 4.51 mill/uL (4.20-5.40); White Blood Cell (WBC) Count 13.3 10x3/uL (4.8-10.8)
[2023-02-13] MEDS: Meropenem 1 GM in Sodium Chloride 0.9% 100 ML IVPB SCH ×3 (05:24→21:13)
[2023-02-13 05:37] LABS: Anion Gap 13 mmol/L (10-20); BUN (Urea Nitrogen) 17 mg/dL (9.8-20.1); Calc. Creatinine Clearance 65 mL/min (70-130); Calcium 9.1 mg/dL (7.8-10.44); Carbon Dioxide 23 mmol/L (23-31); Chloride 102 mmol/L (98-107); Estimated GFR 86; Glucose 125 mg/dL (83-110); Potassium 3.9 mmol/L (3.5-5.1); Sodium 134 mmol/L (136-145)
[2023-02-13] MEDS ORDERED: Meropenem 1 GM VIAL IVPB SCH (06:00)
[2023-02-13] MEDS: Multivitamin W/ Minerals 1 TAB PO SCH (09:07)
[2023-02-13] MEDS: Lisinopril 10 MG TAB PO SCH (09:07)
[2023-02-13] MEDS: Aspirin Chewable 81 MG TAB PO SCH (09:07)
[2023-02-13] MEDS: Apixaban 5 MG TAB PO SCH ×2 (09:07→21:12)
[2023-02-13] MEDS: Insulin Glargine 30 UNITS/0.3 ML VIAL SC SCH (09:13)
[2023-02-13] MEDS ORDERED: Atorvastatin Calcium 20 MG TAB PO SCH (21:00)
[2023-02-13] MEDS ORDERED: Amlodipine 5 MG TAB PO SCH (21:00)
[2023-02-13] MEDS: Acetaminophen 325 MG TAB PO PRN (21:13)
[2023-02-14] MEDS: Meropenem 1 GM in Sodium Chloride 0.9% 100 ML IVPB SCH ×2 (05:27→13:18)
[2023-02-14 08:23] VITALS: TEMP 97.8
[2023-02-14] MEDS: Apixaban 5 MG TAB PO SCH (08:24)
[2023-02-14] MEDS: Aspirin Chewable 81 MG TAB PO SCH (08:24)
[2023-02-14] MEDS: Insulin Glargine 30 UNITS/0.3 ML VIAL SC SCH (08:24)
[2023-02-14] MEDS: Lisinopril 10 MG TAB PO SCH (08:24)
[2023-02-14] MEDS: Multivitamin W/ Minerals 1 TAB PO SCH (08:24)
[2023-02-14] MEDS: Acetaminophen 325 MG TAB PO PRN (09:09)
[2023-02-14 12:15] VITALS: BP 106/67
== END 2023-02-14 17:25 | disposition home or self-care (01) | DRG 253 ==
LOC: ERS 14:57 → SDC/OP 18:01 → 2NO 19:53
PROVIDERS: ADMIT Thoracic Surgery (Cardiothoracic Vascular Surgery); ATTEND Thoracic Surgery (Cardiothoracic Vascular Surgery)
PROC: 04CL0ZZ Extirpation of Matter from Left Femoral Artery, Open Approach (ICD-10-PCS; principal; 2023-02-12)
PROC: 04UL0KZ Supplement Left Femoral Artery with Nonautologous Tissue Substitute, Open Approach (ICD-10-PCS; 2023-02-12)
PROC: 3E033XZ Introduction of Vasopressor into Peripheral Vein, Percutaneous Approach (ICD-10-PCS; 2023-02-12)
DX: I74.3 Embolism and thrombosis of arteries of the lower extremities (principal); E87.1 Hypo-osmolality and hyponatremia; E11.51 Type 2 diabetes mellitus with diabetic peripheral angiopathy without gangrene; I77.1 Stricture of artery; I10 Essential (primary) hypertension; I48.91 Unspecified atrial fibrillation; F03.90 Unspecified dementia, unspecified severity, without behavioral disturbance, psychotic disturbance, mood disturbance, and anxiety; Z98.890 Other specified postprocedural states; Z88.2 Allergy status to sulfonamides; Z88.8 Allergy status to other drugs, medicaments and biological substances; Z79.899 Other long term (current) drug therapy; Z95.0 Presence of cardiac pacemaker; Z90.49 Acquired absence of other specified parts of digestive tract; Z79.01 Long term (current) use of anticoagulants; Z79.82 Long term (current) use of aspirin
CPT/HCPCS: 36415; 36416; 75635; 80048; 80053; 85025; 85610; 85730; 86850; 86870; 86880; 86900; 86901; 86922; 88304; 94760; 96374; 97139; C1768; C1776; J0171; J0690; J1644; J1815; J2185; J2405; J2720; J3010; J3490; Q9967; S0020